=== PATIENT | male | born 1955 | race Caucasian/White ===

== ENCOUNTER 2017-11-22 11:43 | Observation (INO) | payer OTHER, SELFPAY | END 2017-11-23 13:50 | disposition home or self-care (01) | PROVIDERS: Admitting Provider Internal Medicine; Emergency Provider Emergency Medicine; Visit Provider Internal Medicine | DX: G45.9 Transient cerebral ischemic attack, unspecified (principal); R47.81 Slurred speech; F03.90 Unspecified dementia, unspecified severity, without behavioral disturbance, psychotic disturbance, mood disturbance, and anxiety; E78.5 Hyperlipidemia, unspecified | CPT/HCPCS: 70450; 70496; 70498; 70551; 71010; 71045; 80053; 80061; 82962; 84484; 85025; 85610; 85730; 92523; 93005; 93010; 96360; 96361; 97161; 97165; 97535; 99058; 99285; G0378; J1650; Q9967 ==

== ENCOUNTER 2018-04-10 13:18 | Inpatient (IN) | payer OTHER, SELFPAY ==
[2018-04-10] VITALS (9 sets, daily range): BP systolic 146–172; BP diastolic 82–97; PULSE 68–81; RESP 15–20; TEMP 36.3–37.2; O2SAT 94–97; BMI 34.0
--- NOTE | 2018-04-10 13:26 | DI.RAD.S_ITS ---
PROCEDURE: XR CHEST 1V INDICATIONS: chest pain TECHNIQUE: One view of the chest was acquired. COMPARISON: [facility], , CHEST 1 VIEW, 11/22/2017, 11:56. FINDINGS: Surgical changes and devices: None. Lungs and pleura: No pleural effusions or pneumothorax. Lungs are clear. Mediastinum: Mediastinal contours appear normal. Heart size is normal. Bones and chest wall: No suspicious bony lesions. Overlying soft tissues appear unremarkable. IMPRESSION: No acute cardiopulmonary pathology. Dictated by: Bassam Ceron M.D. on 04/10/2018 at 13:44 Approved by: Bassam Ceron M.D. on 04/10/2018 at 13:44
--- NOTE | 2018-04-10 13:31 | DI.CT.S_ITS ---
PROCEDURE: CT HEAD/BRAIN WO CON INDICATIONS: Left sided weakness. H/O brain tumor from 70s. TECHNIQUE: Noncontrast 4.5 mm thick angled axial sections acquired from the foramen magnum to the vertex, with coronal and sagittal reformats. For radiation dose reduction, the following was used: automated exposure control, adjustment of mA and/or kV according to patient size. COMPARISON: [facility], CT, HEAD WITHOUT CONTRAST, 11/22/2017, 12:12. FINDINGS: Image quality: Excellent. CSF spaces: Basal cisterns are patent. No extra-axial fluid collections. The ventricles are symmetric in size and shape. Brain: The large right posterior parietal encephalomalacia is again seen with areas of dystrophic calcification, unchanged from previous study. Benign calcifications are also noted in bilateral basal ganglia. No intracranial bleeds or masses. There is cerebral volume loss for age, with resultant ventricular and sulcal prominence. There are periventricular and deep white matter chronic small vessel ischemic changes. There is intracranial internal carotid artery atherosclerosis. Skull and face: There are post right temporoparietal craniotomy changes. No acute calvarial abnormalities. The visualized facial bones appear intact, without suspicious lesions. Sinuses: Visualized sinuses and mastoids are clear. IMPRESSION: No CT evidence of acute intracranial pathology. No significant changes from 11/22/17 study. Right posterior parietal encephalomalacia with stable post surgical changes. Dictated by: Bassam Ceron M.D. on 04/10/2018 at 13:45 Approved by: Bassam Ceron M.D. on 04/10/2018 at 13:47
--- NOTE | 2018-04-10 13:52 | ED.NEUROSD ---
HPI - Neuro Symptoms/Deficit General Chief Complaint: Neuro Symptoms/Deficit Stated Complaint: L sided weakness. Time Seen by Provider: 04/10/18 13:51 Source: patient, family and old records reviewed History of Present Illness HPI Narrative: This is a a 62-year-old male who comes to the emergency department with complaint of left-sided deficit. Patient and family both state that he woke up with these symptoms. He states that when he went to bed he was not having these issues. He does have a history of brain tumor Um that was removed. He was seen here before with somewhat similar symptoms and was blue to have a hypertensive encephalopathy. Patient has been having left-sided weakness of his arm and left lower extremity. He typically does have some issues with weakness in the hand itself but not as extensive as the weakness today. Um no fevers. He denies any vision changes, him and his family state that he has some slightly but increased difficulty with speech Um. No nausea or vomiting. No chest pain or shortness of breath. No new GI or urinary symptoms. Patient has not any new medication changes recently. Onset (ago): hour(s) Timing confirmed by: spouse and family member Location: speech, left arm and left leg History of same: Yes Severity: moderate Quality: weak Relieving factors: none Exacerbating factors: none Context: other (Woke up with symptoms) On Anticoagulants: No Associated symptoms: denies other symptoms Related Data Home Medications Medication Instructions Recorded Confirmed donepezil 10 mg PO BEDTIME #0 04/30/16 04/10/18 cholecalciferol (vitamin D3) 1,000 unit PO BEDTIME #0 11/22/17 04/10/18 [Vitamin D3] lisinopril 10 mg PO BEDTIME #0 11/22/17 04/10/18 atorvastatin 80 mg PO BEDTIME 04/10/18 04/10/18 ibuprofen 800 mg PO QID PRN 04/10/18 04/10/18 loratadine 10 mg PO BEDTIME 04/10/18 04/10/18 multivitamin 1 tab PO BEDTIME 04/10/18 04/10/18 ranitidine HCl 150 mg PO BID PRN 04/10/18 04/10/18 Allergies Allergy/AdvReac Type Severity Reaction Status Date / Time No Known Drug Allergies Allergy Verified 04/10/18 13:32 Review of Systems Review of Systems All systems reviewed & are unremarkable except as noted in HPI and below Constitutional Reports weakness ENT Ears, Nose, Mouth, and Throat: Denies dizziness Cardiovascular Denies dyspnea and Denies dyspnea on exertion Respiratory Denies cough, Denies dyspnea, Denies dyspnea on exertion and Denies wheezing Gastrointestinal Gastrointestinal: Denies abdominal pain, Denies change in bowel habits, Denies diarrhea, Denies nausea and Denies vomiting Musculoskeletal Reports as per HPI, Reports limited range of motion and Denies numbness Neurologic Reports abnormal speech, Denies confusion, Denies dizziness, Reports focal weakness (Left arm and leg), Denies numbness, Denies other visual disturbances, Denies seizure-like activity, Denies sensory deficit and Reports weakness Psychiatric Denies confusion Allergic/Immunologic Denies wheezing PFSH Medical History Hyperlipemia (Acute) Hypertension (Acute) Surgical History H/O craniotomy (Acute) Social History household members: spouse Smoking Status: Never smoker alcohol intake: never Exam Initial Vital Signs Initial Vital Signs: Vital Signs Temperature 98.9 F 04/10/18 13:26 Pulse Rate 77 04/10/18 13:26 Respiratory Rate 16 04/10/18 13:26 Blood Pressure 172/97 H 04/10/18 13:26 Pulse Oximetry 97 04/10/18 13:26 Const General: cooperative, healthy appearing, well developed and in distress (mild) Orientation: alert, awake and oriented x3 HENMT Head: normocephalic and atraumatic Ears: external ears normal and TM's normal bilaterally Nose: external nose normal and No nasal discharge Face and sinus: sinuses nontender, face symmetric, no sinus tenderness and No dry mucous membranes Mouth: oral mucosae normal and moist mucous membranes Teeth and gingiva: dentition normal Throat: tonsils normal and uvula midline Neck Neck: normal visual inspection, trachea midline, No lymphadenopathy, No midline deformity and No JVD Lymphatic: No lymphedema Chest Chest: normal inspection of the chest Resp Effort & Inspection: normal respiratory effort, able to speak in complete sentences, no respiratory distress and no use of accessory muscles Auscultation: clear to auscultation bilaterally, no rales, no rhonchi and no wheezes Cardio Rate: regular rate Rhythm: regular rhythm Heart Sounds: no click, no gallops, no murmurs and no rubs Pulses: normal peripheral pulses GI Inspection: non-distended Palpation: soft, no hepatosplenomegaly, No guarding, No pulsatile mass and No tender Auscultation: normal bowel sounds Neuro General: alert, awake, oriented x3 and CN's II-XI intact bilaterally Cranial Nerves: CN's II-XI intact bilaterally Cognition: normal cognition Speech: abnormal speech (slight aphasia) Motor: No movement abnormality noted and strength abnormal (left upper and lower extremity are weak, patient can lift but cannot maintain against gravity.) Sensory Exam: sensory deficits noted Coordination: other ( Finger-nose test and kbek-[id number]-bmko test is normal on the right. Patient is unable to complete on the left.) Extrem General: normal to inspection Scores NIH Stroke Scale Level of Conciousness: Alert, keenly responsive Ask month/age: Answers both questions correctly. Best gaze horizontal: Normal Visual talley: Complete hemianopia Facial palsy: Minor paralysis, flattened nasolabial fold, asymmetry on smiling Left arm drift: Some effort against gravity, cannot maintain, drifts down to bed Right arm drift: No drift for full 10 sec Left leg drift: Some effort against gravity, cannot maintain, drifts down to bed Right leg drift: No drift for full 10 sec Limb ataxia: Present in two limbs Sensory on face/arms/legs: Normal, no sensory loss Best language: Mild to moderate, slurs some words Dysarthria: Normal Extinction or inattention: No abnormality Course Decision to Admit time: 15:14 Orders Ordered: ED Orders 04/10/18 13:26 XR chest 1V Stat EKG-12 Lead Stat 04/10/18 13:31 CT head/brain wo con Stat 04/10/18 14:12 Complete Blood Count AUTO DIFF Stat Comprehensive Metabolic Panel Stat Lipase Stat Partial Thromboplastin Time Stat Prothrombin Time INR Stat Troponin & CK Cardiac Panel Stat 04/10/18 15:03 CT angio head and neck Stat 04/10/18 15:21 Urine Microscopic Stat 04/10/18 16:38 Education, smoking cessation ONGOING 04/10/18 16:40 Consult to Occupational Therapy Evaluate & Treat 04/10/18 17:24 Consult to Business Investor Routine Acetaminophen (Tylenol) 650 mg PO Q6HR PRN PRN Reason: As Needed for Fever/Mild Pain Atorvastatin Calcium (Lipitor) 80 mg PO BEDTIME MIGUEL Bisacodyl (Dulcolax) 10 mg [place] DAILY PRN PRN Reason: Constipation Docusate Sodium (Colace) 100 mg PO BID MIGUEL Donepezil HCl (Aricept) 10 mg PO BEDTIME MIGUEL Enoxaparin Sodium (Lovenox) 40 mg SUBCUT DAILY MIGUEL Ibuprofen (Advil) 800 mg PO QID PRN PRN Reason: Pain (Scale Score 1-3) Loratadine (Claritin) 10 mg PO BEDTIME MIGUEL Magnesium Hydroxide (Milk Of Magnesia) 30 ml PO DAILY PRN PRN Reason: Constipation Multivitamins (Tab-A-[place]) 1 tab PO BEDTIME MIGUEL Ondansetron HCl (Zofran) 4 mg IV Q8HR PRN PRN Reason: Nausea And Vomiting Ondansetron HCl (Zofran Odt) 4 mg PO Q8HR PRN PRN Reason: Nausea And Vomiting Ranitidine HCl (Zantac) 150 mg PO BID PRN PRN Reason: gerd Sennosides (Senna) 17.2 mg PO BEDTIME [facility] Sodium Biphosphate/Sodium Phosphate (Fleet Enema) 1 each [place] PRN PRN PRN Reason: Constipation Discontinued Medications Aspirin (Aspirin) 325 mg PO NOW ONE Stop: 04/10/18 15:04 Last Admin: 04/10/18 15:26 Dose: 325 mg Consultations Consultation #1: Dr. Simons accepts pending no significant angiogram changes. Plan for admission. Time: 15:40 Vital Signs - 8 hr 04/10/18 13:26 04/10/18 14:00 04/10/18 14:30 Temperature 98.9 F Pulse Rate 77 75 76 Respiratory Rate 16 16 19 Blood Pressure 172/97 H Blood Pressure [Left Arm] 162/96 H 162/85 H Pulse Oximetry 97 97 96 04/10/18 15:30 04/10/18 16:00 04/10/18 16:50 Temperature 97.4 F L Pulse Rate 75 81 68 Respiratory Rate 15 15 18 Blood Pressure 151/96 H Blood Pressure [Left Arm] 164/94 H 160/93 H Pulse Oximetry 95 94 97 MDM - Neuro Symptoms/Deficit Differential Diagnosis Likely cerebrovascular accident, transient cerebral ischemia and other Medical Records Attestation: I reviewed the patient's medical records. Lab Data Result diagrams: 04/10/18 14:12 04/10/18 14:12 Lab Results 04/10/18 04/10/18 04/10/18 Range/Units 14:12 14:12 14:12 WBC 6.3 (4.5-11.0) X10^3/uL RBC 4.68 (4.5-5.9) X10^6/uL Hgb 14.5 (13.5-17.5) g/dL Hct 42.3 (41-53) % MCV 90.4 (80-100) fL MCH 31.0 (26-34) PG MCHC 34.3 (30-36) % RDW 14.1 (11.6-14.8) % Plt Count 275 (150-400) X10^3/uL Neut % (Auto) 59.5 (50-75) % Lymph % (Auto) 31.9 (25-40) % Owen % (Auto) 7.0 (3-14) % Eos % (Auto) 1.1 L (2-4) % Baso % (Auto) 0.5 (0-2) % Neut # (Auto) 3700 (7612-2213) /uL PT 10.8 (10.1-12.7) SECONDS INR 1.0 (0.9-1.3) APTT 36 (26.4-36.2) SECONDS Sodium 147 H (137-145) mmol/L Potassium 4.4 (3.4-5.1) mmol/L Chloride 106 (98-107) mmol/L Carbon Dioxide 30 (22-32) mmol/L BUN 16 (9-20) mg/dL Creatinine 0.90 (0.66-1.25) mg/dL Estimated GFR > 60.0 (>60) mL/min BUN/Creatinine Ratio 17.8 (6-22) Glucose 108 (80-110) mg/dL Calcium 9.6 (8.4-10.2) mg/dL Total Bilirubin 0.6 (0.2-1.3) mg/dL AST 33 (17-59) IU/L ALT 35 (21-72) IU/L Alkaline Phosphatase 77 (38-126) U/L Total Creatine Kinase 117 (55-170) U/L CK-MB (CK-2) 0.78 (<2.37) ng/mL CK-MB (CK-2) Rel Index 0.7 L (1.5-5.0) % Troponin I < 0.012 (0.01-0.034) ng/mL Total Protein 7.6 (6.3-8.2) g/dL Albumin 4.6 (3.5-5.0) g/dL Globulin 3.0 (1.7-4.1) g/dL Albumin/Globulin Ratio 1.5 (1.0-2.8) Lipase 159 (23-300) U/L Urine Dip Bedside Urine Glucose Negative Bedside Urine Bilirubin - Negative Bedside Urine Ketone - Negative Urine Specific [place] 1.015 Bedside Urine Occult Blood + Bedside Urine pH 7.0 Bedside Urine Protein +/- 15 Bedside Urine Urobilinogen - Negative Bedside Urine Nitrite - Negative Bedside Urine Leukocytes - Negative Esterase Imaging Data CT scan - head: Radiologist's impression: No acute process. Head/Neck Angio: Radiologist's impression: [address] [address] [address] Scan Report Signed Patient: Phill DemarcoMR#: [id number] : 6Acct:[id number] Age/Sex: 62 / MDate of Service: 04/10/18 Loc: ED Accession Number: [id number] Procedure: CT angio head and neck Ordering Provider: Reanna Mcclure D.O. PROCEDURE: CT ANGIO HEAD AND NECK INDICATIONS: left sided weakness, mild aphasia. woke up with symptoms TECHNIQUE: Pre-contrast 4.5 mm thick sections acquired from the foramen magnum to the vertex. After the administration of intravenous contrast, 1 mm thick sections acquired from the aortic arch through the [place]. Post-contrast 4.5 mm thick sections then re-acquired from the foramen magnum to the vertex. 3-dimensional jbpbnkx-dnaeutwuo-rchvfqhkkn (MIP) and/or volume rendering reformats were acquired of the central intracranial vasculature and neck separately. COMPARISON: [facility], CT, HEAD AND NECK ANGIO, 11/22/2017, 13:39. FINDINGS: Image quality: Excellent. BRAIN: CSF spaces: Ventricles are normal in size and shape. Basal cisterns are patent. No extra-axial fluid collections. Encephalomalacia in right posterior temporal parietal lobe is again seen at the previously known craniotomy site with multiple areas of dystrophic calcifications and ex vacuo dilatation of right posterior horn unchanged from previous study. Brain: No midline shift. No intracranial bleeds or masses. Joseph-white matter interface appears intact. Mild periventricular white matter chronic ischemic microangiopathic changes are again seen. No area of abnormal contrast enhancement is noted. Skull and face: Calvarium and facial bones appear intact, without suspicious lesions. Orbits appear normal. Sinuses: Sinuses and mastoids are clear. HEAD CT ANGIOGRAPHY: Anterior circulation: Intracranial internal carotid arteries are normal in size and flow. The flow within the paired anterior cerebral arteries is normal and symmetric. The flow within the middle cerebral arteries is normal and symmetric. The anterior communicating artery is seen. No aneurysms are seen. Posterior circulation: Visualized portions of the vertebral arteries demonstrate normal caliber, and join to form a normal appearing basilar artery. Flow within the posterior cerebral arteries is normal and symmetric. No aneurysms are seen. NECK CT ANGIOGRAPHY: Carotid system: The great vessels demonstrate a conventional anatomy as they arise from the aortic arch. The origins of the common carotid arteries appear patent. The common carotid arteries demonstrate normal caliber and courses. The bifurcation regions are both widely patent. The internal carotid arteries demonstrate normal calibers and courses. Posterior circulation: The origins of the vertebral arteries both appear widely patent. The more superior extracranial portions of both vertebral arteries also demonstrate normal courses and calibers. They join to form a normal appearing basilar artery. Soft tissues: Visualized neck soft tissues demonstrate no suspicious abnormalities. Bones: No suspicious bony lesions. Visualized cervical spine appears normally aligned. IMPRESSION: 1. No hemodynamically significant stenosis or aneurysm is seen in the visualized intracranial circulation. 2. No hemodynamically significant stenosis is seen in bilateral neck arteries. 3. Stable post craniotomy changes in right posterior temporal parietal region, unchanged from previous study. No area of abnormal contrast enhancement is seen. Any quantitative measurements of stenosis were performed using NASCET criteria. Dictated by: Bassam Ceron M.D. on 04/10/2018 at 15:37 Approved by: Bassam Ceron M.D. on 04/10/2018 at 15:41 ECG Data Attestation: I personally reviewed and interpreted this ECG as follows: Interpretation: Sinus rhythm with a rate of 76, P are 152, QRS of 113 and QTC of 439. No ST elevation or depression. MDM Narrative Medical decision making narrative: patient symptoms were Um noted upon awakening so he is not a tPA candidate he has also had a history of prior craniotomy for brain tumor Um so this would also likely him from criteria for tPA. Patient is not taking blood thinners regularly. He has left-sided weakness with an NIH score of 9. He has not had any major improvement today with his symptoms. Head CT does not show any acute bleed or change, head angio does not show any stenosis. Chest x-ray is clear and lab work does not show any major changes. Patient is mildly hypertensive but not at a level requiring intervention. Plan was discussed with Dr. Simons who accepts for admission and patient and family are comfortable with this plan. His a somewhat complicated medical history with prior excision of a brain tumor and radiation, he had what sounded like a TIA in November and was called hypertensive encephalopathy. He also has a remote history of seizures after his surgery although not have been witnessed recently. He has some mild left hand weakness in the past that is typically present but his weakness today is quite about more extensive. Discharge Plan Departure Patient Disposition: Admitted As Inpatient Clinical Impression: CVA (cerebral vascular accident) Discharge Date/Time: 04/10/18 16:22 Interventions: ED Discharge Assessment Last Done: 04/10/18 16:21 Admit Date/Time: 04/10/18 15:57 Admit Provider: Manish Simons
--- NOTE | 2018-04-10 14:00 | ED_ITS ---
HPI - Neuro Symptoms/Deficit General Chief Complaint: Neuro Symptoms/Deficit Stated Complaint: L sided weakness. Time Seen by Provider: 04/10/18 13:51 Source: patient, family and old records reviewed History of Present Illness HPI Narrative: This is a a 62-year-old male who comes to the emergency department with complaint of left-sided deficit. Patient and family both state that he woke up with these symptoms. He states that when he went to bed he was not having these issues. He does have a history of brain tumor Um that was removed. He was seen here before with somewhat similar symptoms and was blue to have a hypertensive encephalopathy. Patient has been having left-sided weakness of his arm and left lower extremity. He typically does have some issues with weakness in the hand itself but not as extensive as the weakness today. Um no fevers. He denies any vision changes, him and his family state that he has some slightly but increased difficulty with speech Um. No nausea or vomiting. No chest pain or shortness of breath. No new GI or urinary symptoms. Patient has not any new medication changes recently. Onset (ago): hour(s) Timing confirmed by: spouse and family member Location: speech, left arm and left leg History of same: Yes Severity: moderate Quality: weak Relieving factors: none Exacerbating factors: none Context: other (Woke up with symptoms) On Anticoagulants: No Associated symptoms: denies other symptoms Related Data Home Medications Medication Instructions Recorded Confirmed donepezil 10 mg PO BEDTIME #0 04/30/16 04/10/18 cholecalciferol (vitamin D3) 1,000 unit PO BEDTIME #0 11/22/17 04/10/18 [Vitamin D3] lisinopril 10 mg PO BEDTIME #0 11/22/17 04/10/18 atorvastatin 80 mg PO BEDTIME 04/10/18 04/10/18 ibuprofen 800 mg PO QID PRN 04/10/18 04/10/18 loratadine 10 mg PO BEDTIME 04/10/18 04/10/18 multivitamin 1 tab PO BEDTIME 04/10/18 04/10/18 ranitidine HCl 150 mg PO BID PRN 04/10/18 04/10/18 Allergies Allergy/AdvReac Type Severity Reaction Status Date / Time No Known Drug Allergies Allergy Verified 04/10/18 13:32 Review of Systems Review of Systems All systems reviewed & are unremarkable except as noted in HPI and below Constitutional Reports weakness ENT Ears, Nose, Mouth, and Throat: Denies dizziness Cardiovascular Denies dyspnea and Denies dyspnea on exertion Respiratory Denies cough, Denies dyspnea, Denies dyspnea on exertion and Denies wheezing Gastrointestinal Gastrointestinal: Denies abdominal pain, Denies change in bowel habits, Denies diarrhea, Denies nausea and Denies vomiting Musculoskeletal Reports as per HPI, Reports limited range of motion and Denies numbness Neurologic Reports abnormal speech, Denies confusion, Denies dizziness, Reports focal weakness (Left arm and leg), Denies numbness, Denies other visual disturbances, Denies seizure-like activity, Denies sensory deficit and Reports weakness Psychiatric Denies confusion Allergic/Immunologic Denies wheezing PFSH Medical History Hyperlipemia (Acute) Hypertension (Acute) Surgical History H/O craniotomy (Acute) Social History household members: spouse Smoking Status: Never smoker alcohol intake: never Exam Initial Vital Signs Initial Vital Signs: Vital Signs Temperature 98.9 F 04/10/18 13:26 Pulse Rate 77 04/10/18 13:26 Respiratory Rate 16 04/10/18 13:26 Blood Pressure 172/97 H 04/10/18 13:26 Pulse Oximetry 97 04/10/18 13:26 Const General: cooperative, healthy appearing, well developed and in distress (mild) Orientation: alert, awake and oriented x3 HENMT Head: normocephalic and atraumatic Ears: external ears normal and TM's normal bilaterally Nose: external nose normal and No nasal discharge Face and sinus: sinuses nontender, face symmetric, no sinus tenderness and No dry mucous membranes Mouth: oral mucosae normal and moist mucous membranes Teeth and gingiva: dentition normal Throat: tonsils normal and uvula midline Neck Neck: normal visual inspection, trachea midline, No lymphadenopathy, No midline deformity and No JVD Lymphatic: No lymphedema Chest Chest: normal inspection of the chest Resp Effort & Inspection: normal respiratory effort, able to speak in complete sentences, no respiratory distress and no use of accessory muscles Auscultation: clear to auscultation bilaterally, no rales, no rhonchi and no wheezes Cardio Rate: regular rate Rhythm: regular rhythm Heart Sounds: no click, no gallops, no murmurs and no rubs Pulses: normal peripheral pulses GI Inspection: non-distended Palpation: soft, no hepatosplenomegaly, No guarding, No pulsatile mass and No tender Auscultation: normal bowel sounds Neuro General: alert, awake, oriented x3 and CN's II-XI intact bilaterally Cranial Nerves: CN's II-XI intact bilaterally Cognition: normal cognition Speech: abnormal speech (slight aphasia) Motor: No movement abnormality noted and strength abnormal (left upper and lower extremity are weak, patient can lift but cannot maintain against gravity.) Sensory Exam: sensory deficits noted Coordination: other ( Finger-nose test and [id number] test is normal on the right. Patient is unable to complete on the left.) Extrem General: normal to inspection Scores NIH Stroke Scale Level of Conciousness: Alert, keenly responsive Ask month/age: Answers both questions correctly. Best gaze horizontal: Normal Visual talley: Complete hemianopia Facial palsy: Minor paralysis, flattened nasolabial fold, asymmetry on smiling Left arm drift: Some effort against gravity, cannot maintain, drifts down to bed Right arm drift: No drift for full 10 sec Left leg drift: Some effort against gravity, cannot maintain, drifts down to bed Right leg drift: No drift for full 10 sec Limb ataxia: Present in two limbs Sensory on face/arms/legs: Normal, no sensory loss Best language: Mild to moderate, slurs some words Dysarthria: Normal Extinction or inattention: No abnormality Course Decision to Admit time: 15:14 Orders Ordered: ED Orders 04/10/18 13:26 XR chest 1V Stat EKG-12 Lead Stat 04/10/18 13:31 CT head/brain wo con Stat 04/10/18 14:12 Complete Blood Count AUTO DIFF Stat Comprehensive Metabolic Panel Stat Lipase Stat Partial Thromboplastin Time Stat Prothrombin Time INR Stat Troponin & CK Cardiac Panel Stat 04/10/18 15:03 CT angio head and neck Stat 04/10/18 15:21 Urine Microscopic Stat 04/10/18 16:38 Education, smoking cessation ONGOING 04/10/18 16:40 Consult to Occupational Therapy Evaluate & Treat 04/10/18 17:24 Consult to Media Associate Routine Acetaminophen (Tylenol) 650 mg PO Q6HR PRN PRN Reason: As Needed for Fever/Mild Pain Atorvastatin Calcium (Lipitor) 80 mg PO BEDTIME MIGUEL Bisacodyl (Dulcolax) 10 mg DC DAILY PRN PRN Reason: Constipation Docusate Sodium (Colace) 100 mg PO BID MIGUEL Donepezil HCl (Aricept) 10 mg PO BEDTIME MIGUEL Enoxaparin Sodium (Lovenox) 40 mg SUBCUT DAILY MIGUEL Ibuprofen (Advil) 800 mg PO QID PRN PRN Reason: Pain (Scale Score 1-3) Loratadine (Claritin) 10 mg PO BEDTIME MIGUEL Magnesium Hydroxide (Milk Of Magnesia) 30 ml PO DAILY PRN PRN Reason: Constipation Multivitamins (Tab-A-[place]) 1 tab PO BEDTIME MIGUEL Ondansetron HCl (Zofran) 4 mg IV Q8HR PRN PRN Reason: Nausea And Vomiting Ondansetron HCl (Zofran Odt) 4 mg PO Q8HR PRN PRN Reason: Nausea And Vomiting Ranitidine HCl (Zantac) 150 mg PO BID PRN PRN Reason: gerd Sennosides (Senna) 17.2 mg PO BEDTIME [facility] Sodium Biphosphate/Sodium Phosphate (Fleet Enema) 1 each DC PRN PRN PRN Reason: Constipation Discontinued Medications Aspirin (Aspirin) 325 mg PO NOW ONE Stop: 04/10/18 15:04 Last Admin: 04/10/18 15:26 Dose: 325 mg Consultations Consultation #1: Dr. Simons accepts pending no significant angiogram changes. Plan for admission. Time: 15:40 Vital Signs - 8 hr 04/10/18 13:26 04/10/18 14:00 04/10/18 14:30 Temperature 98.9 F Pulse Rate 77 75 76 Respiratory Rate 16 16 19 Blood Pressure 172/97 H Blood Pressure [Left Arm] 162/96 H 162/85 H Pulse Oximetry 97 97 96 04/10/18 15:30 04/10/18 16:00 04/10/18 16:50 Temperature 97.4 F L Pulse Rate 75 81 68 Respiratory Rate 15 15 18 Blood Pressure 151/96 H Blood Pressure [Left Arm] 164/94 H 160/93 H Pulse Oximetry 95 94 97 MDM - Neuro Symptoms/Deficit Differential Diagnosis Likely cerebrovascular accident, transient cerebral ischemia and other Medical Records Attestation: I reviewed the patient's medical records. Lab Data Result diagrams: 04/10/18 14:12 04/10/18 14:12 Lab Results 04/10/18 04/10/18 04/10/18 Range/Units 14:12 14:12 14:12 WBC 6.3 (4.5-11.0) X10^3/uL RBC 4.68 (4.5-5.9) X10^6/uL Hgb 14.5 (13.5-17.5) g/dL Hct 42.3 (41-53) % MCV 90.4 (80-100) fL MCH 31.0 (26-34) PG MCHC 34.3 (30-36) % RDW 14.1 (11.6-14.8) % Plt Count 275 (150-400) X10^3/uL Neut % (Auto) 59.5 (50-75) % Lymph % (Auto) 31.9 (25-40) % [place] % (Auto) 7.0 (3-14) % Eos % (Auto) 1.1 L (2-4) % Baso % (Auto) 0.5 (0-2) % Neut # (Auto) 3700 (3991-6496) /uL PT 10.8 (10.1-12.7) SECONDS INR 1.0 (0.9-1.3) APTT 36 (26.4-36.2) SECONDS Sodium 147 H (137-145) mmol/L Potassium 4.4 (3.4-5.1) mmol/L Chloride 106 (98-107) mmol/L Carbon Dioxide 30 (22-32) mmol/L BUN 16 (9-20) mg/dL Creatinine 0.90 (0.66-1.25) mg/dL Estimated GFR > 60.0 (>60) mL/min BUN/Creatinine Ratio 17.8 (6-22) Glucose 108 (80-110) mg/dL Calcium 9.6 (8.4-10.2) mg/dL Total Bilirubin 0.6 (0.2-1.3) mg/dL AST 33 (17-59) IU/L ALT 35 (21-72) IU/L Alkaline Phosphatase 77 (38-126) U/L Total Creatine Kinase 117 (55-170) U/L CK-MB (CK-2) 0.78 (<2.37) ng/mL CK-MB (CK-2) Rel Index 0.7 L (1.5-5.0) % Troponin I < 0.012 (0.01-0.034) ng/mL Total Protein 7.6 (6.3-8.2) g/dL Albumin 4.6 (3.5-5.0) g/dL Globulin 3.0 (1.7-4.1) g/dL Albumin/Globulin Ratio 1.5 (1.0-2.8) Lipase 159 (23-300) U/L Urine Dip Bedside Urine Glucose Negative Bedside Urine Bilirubin - Negative Bedside Urine Ketone - Negative Urine Specific Whitt 1.015 Bedside Urine Occult Blood + Bedside Urine pH 7.0 Bedside Urine Protein +/- 15 Bedside Urine Urobilinogen - Negative Bedside Urine Nitrite - Negative Bedside Urine Leukocytes - Negative Esterase Imaging Data CT scan - head: Radiologist's impression: No acute process. Head/Neck Angio: Radiologist's impression: [address] [address] [address] Scan Report Signed Patient: Phill DemarcoMR#: [id number] : 6Acct:[id number] Age/Sex: 62 / MDate of Service: 04/10/18 Loc: ED Accession Number: [id number] Procedure: CT angio head and neck Ordering Provider: Reanna Mcclure D.O. PROCEDURE: CT ANGIO HEAD AND NECK INDICATIONS: left sided weakness, mild aphasia. woke up with symptoms TECHNIQUE: Pre-contrast 4.5 mm thick sections acquired from the foramen magnum to the vertex. After the administration of intravenous contrast, 1 mm thick sections acquired from the aortic arch through the [place] of [place]. Post-contrast 4.5 mm thick sections then re- acquired from the foramen magnum to the vertex. 3-dimensional maximum-intensity- projection (MIP) and/or volume rendering reformats were acquired of the central intracranial vasculature and neck separately. COMPARISON: [facility], CT, HEAD AND NECK ANGIO, 11/22/2017, 13:39. FINDINGS: Image quality: Excellent. BRAIN: CSF spaces: Ventricles are normal in size and shape. Basal cisterns are patent. No extra-axial fluid collections. Encephalomalacia in right posterior temporal parietal lobe is again seen at the previously known craniotomy site with multiple areas of dystrophic calcifications and ex vacuo dilatation of right posterior horn unchanged from previous study. Brain: No midline shift. No intracranial bleeds or masses. Joseph-white matter interface appears intact. Mild periventricular white matter chronic ischemic microangiopathic changes are again seen. No area of abnormal contrast enhancement is noted. Skull and face: Calvarium and facial bones appear intact, without suspicious lesions. Orbits appear normal. Sinuses: Sinuses and mastoids are clear. HEAD CT ANGIOGRAPHY: Anterior circulation: Intracranial internal carotid arteries are normal in size and flow. The flow within the paired anterior cerebral arteries is normal and symmetric. The flow within the middle cerebral arteries is normal and symmetric. The anterior communicating artery is seen. No aneurysms are seen. Posterior circulation: Visualized portions of the vertebral arteries demonstrate normal caliber, and join to form a normal appearing basilar artery. Flow within the posterior cerebral arteries is normal and symmetric. No aneurysms are seen. NECK CT ANGIOGRAPHY: Carotid system: The great vessels demonstrate a conventional anatomy as they arise from the aortic arch. The origins of the common carotid arteries appear patent. The common carotid arteries demonstrate normal caliber and courses. The bifurcation regions are both widely patent. The internal carotid arteries demonstrate normal calibers and courses. Posterior circulation: The origins of the vertebral arteries both appear widely patent. The more superior extracranial portions of both vertebral arteries also demonstrate normal courses and calibers. They join to form a normal appearing basilar artery. Soft tissues: Visualized neck soft tissues demonstrate no suspicious abnormalities. Bones: No suspicious bony lesions. Visualized cervical spine appears normally aligned. IMPRESSION: 1. No hemodynamically significant stenosis or aneurysm is seen in the visualized intracranial circulation. 2. No hemodynamically significant stenosis is seen in bilateral neck arteries. 3. Stable post craniotomy changes in right posterior temporal parietal region, unchanged from previous study. No area of abnormal contrast enhancement is seen. Any quantitative measurements of stenosis were performed using NASCET criteria. Dictated by: Bassam Ceron M.D. on 04/10/2018 at 15:37 Approved by: Bassam Ceron M.D. on 04/10/2018 at 15:41 ECG Data Attestation: I personally reviewed and interpreted this ECG as follows: Interpretation: Sinus rhythm with a rate of 76, P are 152, QRS of 113 and QTC of 439. No ST elevation or depression. MDM Narrative Medical decision making narrative: patient symptoms were Um noted upon awakening so he is not a tPA candidate he has also had a history of prior craniotomy for brain tumor Um so this would also likely him from criteria for tPA. Patient is not taking blood thinners regularly. He has left-sided weakness with an NIH score of 9. He has not had any major improvement today with his symptoms. Head CT does not show any acute bleed or change, head angio does not show any stenosis. Chest x-ray is clear and lab work does not show any major changes. Patient is mildly hypertensive but not at a level requiring intervention. Plan was discussed with Dr. Simons who accepts for admission and patient and family are comfortable with this plan. His a somewhat complicated medical history with prior excision of a brain tumor and radiation, he had what sounded like a TIA in November and was called hypertensive encephalopathy. He also has a remote history of seizures after his surgery although not have been witnessed recently. He has some mild left hand weakness in the past that is typically present but his weakness today is quite about more extensive. Discharge Plan Departure Patient Disposition: Admitted As Inpatient Clinical Impression: CVA (cerebral vascular accident) Discharge Date/Time: 04/10/18 16:22 Interventions: ED Discharge Assessment Last Done: 04/10/18 16:21 Admit Date/Time: 04/10/18 15:57 Admit Provider: Manish Simons
[2018-04-10 14:20] LABS: Add Manual Diff / Slide Review NO; Basophils Percent Auto 0.5 % (0-2); Eosinophils Percent Auto 1.1 % (2-4); Hematocrit 42.3 % (41-53); Hemoglobin 14.5 g/dL (13.5-17.5); Lymphocytes Percent Auto 31.9 % (25-40); Mean Corpuscular HGB Conc 34.3 % (30-36); Mean Corpuscular Volume 90.4 fL (80-100); Neutrophils Absolute Auto 3700 /uL (3000-5900); Neutrophils Percent Auto 59.5 % (50-75); Platelet Count 275 X10^3/uL (150-400); Red Blood Cell Count 4.68 X10^6/uL (4.5-5.9); Red Cell Distribution Width 14.1 % (11.6-14.8); White Blood Cell Count 6.3 X10^3/uL (4.5-11.0)
[2018-04-10 14:28] LABS: Prothrombin Time 10.8 SECONDS (10.1-12.7)
[2018-04-10 14:30] LABS: PTT Partial Thromboplastin Tim 36 SECONDS (26.4-36.2)
[2018-04-10 14:32] LABS: Alanine Aminotransferase 35 IU/L (21-72); Albumin 4.6 g/dL (3.5-5.0); Albumin Globulin Ratio 1.5 (1.0-2.8); Alkaline Phosphatase 77 U/L (38-126); Aspartate Aminotransferase 33 IU/L (17-59); BUN Creatinine Ratio 17.8 (6-22); Bilirubin Total 0.6 mg/dL (0.2-1.3); Blood Urea Nitrogen 16 mg/dL (9-20); Calcium 9.6 mg/dL (8.4-10.2); Carbon Dioxide 30 mmol/L (22-32); Chloride 106 mmol/L (98-107); Creatine Kinase 117 U/L (55-170); Estimated Glomerular Filt Rate > 60.0 mL/min (>60); Glucose 108 mg/dL (80-110); HEMOLYSIS < 15 (0-50); Lipase 159 U/L (23-300); Potassium 4.4 mmol/L (3.4-5.1); Sodium 147 mmol/L (137-145); Total Protein 7.6 g/dL (6.3-8.2)
[2018-04-10 14:47] LABS: CKMB % Relative Index 0.7 % (1.5-5.0); Creatine Kinase MB 0.78 ng/mL (<2.37)
[2018-04-10 14:54] LABS: Troponin I < 0.012 ng/mL (0.01-0.034)
--- NOTE | 2018-04-10 15:03 | DI.CT.S_ITS ---
PROCEDURE: CT ANGIO HEAD AND NECK INDICATIONS: left sided weakness, mild aphasia. woke up with symptoms TECHNIQUE: Pre-contrast 4.5 mm thick sections acquired from the foramen magnum to the vertex. After the administration of intravenous contrast, 1 mm thick sections acquired from the aortic arch through the [place] of [place]. Post-contrast 4.5 mm thick sections then re-acquired from the foramen magnum to the vertex. 3-dimensional [id number] (MIP) and/or volume rendering reformats were acquired of the central intracranial vasculature and neck separately. COMPARISON: [facility], CT, HEAD AND NECK ANGIO, 11/22/2017, 13:39. FINDINGS: Image quality: Excellent. BRAIN: CSF spaces: Ventricles are normal in size and shape. Basal cisterns are patent. No extra-axial fluid collections. Encephalomalacia in right posterior temporal parietal lobe is again seen at the previously known craniotomy site with multiple areas of dystrophic calcifications and ex vacuo dilatation of right posterior horn unchanged from previous study. Brain: No midline shift. No intracranial bleeds or masses. [place]-white matter interface appears intact. Mild periventricular white matter chronic ischemic microangiopathic changes are again seen. No area of abnormal contrast enhancement is noted. Skull and face: Calvarium and facial bones appear intact, without suspicious lesions. Orbits appear normal. Sinuses: Sinuses and mastoids are clear. HEAD CT ANGIOGRAPHY: Anterior circulation: Intracranial internal carotid arteries are normal in size and flow. The flow within the paired anterior cerebral arteries is normal and symmetric. The flow within the middle cerebral arteries is normal and symmetric. The anterior communicating artery is seen. No aneurysms are seen. Posterior circulation: Visualized portions of the vertebral arteries demonstrate normal caliber, and join to form a normal appearing basilar artery. Flow within the posterior cerebral arteries is normal and symmetric. No aneurysms are seen. NECK CT ANGIOGRAPHY: Carotid system: The great vessels demonstrate a conventional anatomy as they arise from the aortic arch. The origins of the common carotid arteries appear patent. The common carotid arteries demonstrate normal caliber and courses. The bifurcation regions are both widely patent. The internal carotid arteries demonstrate normal calibers and courses. Posterior circulation: The origins of the vertebral arteries both appear widely patent. The more superior extracranial portions of both vertebral arteries also demonstrate normal courses and calibers. They join to form a normal appearing basilar artery. Soft tissues: Visualized neck soft tissues demonstrate no suspicious abnormalities. Bones: No suspicious bony lesions. Visualized cervical spine appears normally aligned. IMPRESSION: 1. No hemodynamically significant stenosis or aneurysm is seen in the visualized intracranial circulation. 2. No hemodynamically significant stenosis is seen in bilateral neck arteries. 3. Stable post craniotomy changes in right posterior temporal parietal region, unchanged from previous study. No area of abnormal contrast enhancement is seen. Any quantitative measurements of stenosis were performed using NASCET criteria. Dictated by: Bassam Ceron M.D. on 04/10/2018 at 15:37 Approved by: Bassam Ceron M.D. on 04/10/2018 at 15:41
[2018-04-10] MEDS: ASPIRIN 325 MG TABLET PO (15:26)
--- NOTE | 2018-04-10 18:04 | PM.HP.1 ---
History of Present Illness Date Patient Seen: 04/10/18 Time Patient Seen: 16:04 Chief complaint: L sided weakness. Narrative: Patient is a 62 years of age male who was awakened from sleep this morning with a new left-sided hemiparesis and slurring of speech. Patient came to the emergency room with family members. Patient denies recent fevers and chills cough nor nausea and vomiting. Patient with prior history of residual left hand clumsiness and numbness following a craniectomy in 1976. 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 There is a remote history of seizures in the past as well. No recent seizures. 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 Residual left hand clumsiness and numbness since 1976 Family & Social History Social History: household members spouse Prior Living Arrangements Apartment/Condo Safety & Behavioral: Feels Safe in Current Yes Environment Been Physically Hurt or No Threatened By a Person Suicidal Ideation Description None Suicide Plan Description No Plan Tobacco & Substance use: Smoking Status Never smoker alcohol intake never Substance Use Type does not use Comment: SOCIAL HISTORY Patient is for the past 38 years nonsmoker nonalcohol abuser SURGICAL HISTORY Craniectomy 1976 FAMILY HISTORY Father with history of brain aneurysm Meds Home Medications Medication Instructions Recorded Confirmed Type donepezil 10 mg PO BEDTIME #0 04/30/16 04/10/18 History cholecalciferol (vitamin D3) 1,000 unit PO BEDTIME #0 11/22/17 04/10/18 History [Vitamin D3] lisinopril 10 mg PO BEDTIME #0 11/22/17 04/10/18 History atorvastatin 80 mg PO BEDTIME 04/10/18 04/10/18 History ibuprofen 800 mg PO QID PRN 04/10/18 04/10/18 History loratadine 10 mg PO BEDTIME 04/10/18 04/10/18 History multivitamin 1 tab PO BEDTIME 04/10/18 04/10/18 History ranitidine HCl 150 mg PO BID PRN 04/10/18 04/10/18 History Allergies Allergy/AdvReac Type Severity Reaction Status Date / Time No Known Drug Allergies Allergy Verified 04/10/18 13:32 Review of Systems Review of Systems A 10 point system reviewed with patient and was negative except for the symptoms as described in HPI. Patient with left sided hemiparesis and slurred speech. Exam Vital Signs (past 8 hours): - 04/10/18 13:26 04/10/18 14:00 04/10/18 14:30 Temperature 98.9 F Pulse Rate 77 75 76 Respiratory Rate 16 16 19 Blood Pressure 172/97 H Blood Pressure [Left Arm] 162/96 H 162/85 H Pulse Oximetry 97 97 96 04/10/18 15:30 04/10/18 16:00 04/10/18 16:50 Temperature 97.4 F L Pulse Rate 75 81 68 Respiratory Rate 15 15 18 Blood Pressure 151/96 H Blood Pressure [Left Arm] 164/94 H 160/93 H Pulse Oximetry 95 94 97 Oxygen Delivery Method Room Air Narrative Exam Narrative: General appearance patient is awake and alert no apparent distress at rest Psychiatric patient is oriented to self mood is very pleasant and cooperative affect is appropriate Skin no rashes or lesions nonjaundiced turgor normal Eyes pupils appear round and reactive and equal Ears nose and throat hearing grossly intact no septum to midline with no bleeding noted no oropharyngeal lesions Respiratory fairly clear to auscultation no wheezes no crackles Cardiovascular regular rate rhythm no murmurs are noted +3 pulses Gastrointestinal soft nontender positive bowel sounds no organomegaly noted Neurologic left-sided hemiparesis and proprioception loss on exam. Patient with a slurring of speech evident and notes this is new symptom. Lymphatics no lymphadenopathy to neck or axilla Objective Labs Result Diagrams: 04/10/18 14:12 04/10/18 14:12 Labs: Laboratory Results - last 24 hr 04/10/18 04/10/18 04/10/18 14:12 14:12 14:12 WBC 6.3 RBC 4.68 Hgb 14.5 Hct 42.3 MCV 90.4 MCH 31.0 MCHC 34.3 RDW 14.1 Plt Count 275 Neut % (Auto) 59.5 Lymph % (Auto) 31.9 [place] % (Auto) 7.0 Eos % (Auto) 1.1 L Baso % (Auto) 0.5 Neut # (Auto) 3700 PT 10.8 INR 1.0 APTT 36 Sodium 147 H Potassium 4.4 Chloride 106 Carbon Dioxide 30 BUN 16 Creatinine 0.90 Estimated GFR > 60.0 BUN/Creatinine Ratio 17.8 Glucose 108 Calcium 9.6 Total Bilirubin 0.6 AST 33 ALT 35 Alkaline Phosphatase 77 Total Creatine Kinase 117 CK-MB (CK-2) 0.78 CK-MB (CK-2) Rel Index 0.7 L Troponin I < 0.012 Total Protein 7.6 Albumin 4.6 Globulin 3.0 Albumin/Globulin Ratio 1.5 Lipase 159 Assessment & Plan Plan: Assessment/Plan Narrative: 1. 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 Aspirin started 325 mg daily with Lipitor 80 mg daily Permissive hypertension to be provided until tomorrow in a.m.. Note the lisinopril was discontinued. Will resume in a.m. tomorrow 2. History of remote seizures and brain tumor with craniectomy Will continue patient's home medications as tolerated. Time Spent With Patient Time with patient: Greater than 35 minutes (65 min to admit the patient) Quality VTE Deep Vein Thrombosis/Pulmonary Embolism Present on Admission: No
[2018-04-10] MEDS: SENNOSIDES 8.6 MG TABLET 17.2 MG PO (22:03)
[2018-04-10] MEDS: DONEPEZIL 5 MG TABLET 10 MG PO (22:04)
[2018-04-10] MEDS: ATORVASTATIN 20 MG TABLET 80 MG PO (22:04)
[2018-04-10] MEDS: DOCUSATE 100 MG CAPSULE PO (22:04)
[2018-04-10] MEDS: LORATADINE 10 MG TABLET PO (22:04)
[2018-04-10] MEDS: MULTIVITAMIN 1 TABLET 1 TAB PO (22:04)
[2018-04-11] VITALS (10 sets, daily range): BP systolic 143–158; BP diastolic 80–108; PULSE 79–91; RESP 14–18; TEMP 36.6–36.9; O2SAT 94–98
--- NOTE | 2018-04-11 | DI.MRI.S_ITS ---
PROCEDURE: MR HEAD/BRAIN WO/W CON INDICATIONS: new significant left hemiparesis with history of craniectomy TECHNIQUE: Noncontrast axial T1 spin echo, axial T2 fast spin echo, sagittal and axial FLAIR, coronal T2 fast spin echo, axial gradient echo, axial diffusion and ADC through the brain. After the administration of contrast, axial and coronal T1 spin echo with fat saturation through the brain. COMPARISON: [facility], CT, CT HEAD/BRAIN WO CON, 04/10/2018, 13:28. [facility], MR, BRAIN WITHOUT CONTRAST, 11/23/2017, 11:22. [facility], CT, CT ANGIO HEAD AND NECK, 04/10/2018, 15:06. FINDINGS: Image quality: Excellent. CSF spaces: Basal cisterns are patent. No extra-axial fluid collections. Ventricles are normal dilated. Brain: Diffusion weighted images demonstrates restricted diffusion in the right becky consistent with acute/subacute infarct. There is a large area of old cerebral infarction in the right parietal-occipital with encephalomalacia ex vacuo dilation of the occipital horn the right lateral ventricle. No midline shift. No intracranial bleeds or masses. No abnormal intracranial enhancement. There is cerebral volume loss for age. There is periventricular white matter chronic small vessel ischemic change. Susceptibility artifacts on gradient echo images bilaterally are unchanged, compatible with old blood products or dystrophic calcifications. The brainstem appears normal. Normal intravascular flow voids are present. Skull and face: Calvarial marrow is normal in signal. Orbits appear normal. Sinuses: Sinuses and mastoids appear clear. IMPRESSION: 1. Acute or subacute right pontine infarct. 2. 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 3. Generalized cerebral volume loss. 4. Periventricular white matter chronic small vessel ischemic changes. Dictated by: Mireya Burton M.D. on 04/11/2018 at 20:12 Approved by: Mireya Burton M.D. on 04/11/2018 at 20:21
--- NOTE | 2018-04-11 09:29 | PT.IIE ---
Current Diagnoses Cerebral infarction, unspecified (04/10/18) Surgical History (Last Updated 04/10/18 @ 16:23 by Sona Martines, RN) H/O craniotomy (Acute) Medical History (Last Updated 04/10/18 @ 17:26 by Sona Martines, RN) Hyperlipemia (Acute) Hypertension (Acute) Physical Therapy Inpatient Evaluation/Re-Eval Medical Review Prior Functional Status Medical History Reviewed Yes Communication no known deficits, except pt does mention difficulty with memory Mobility and Gait pt reports being completely ind, no devices. Social History Household Members spouse Living Arrangements House Number of Floors (Floors) Two Floors Number of Stairs To Enter/Railing? a few stairs to enter, unsure if there's a rail, inside there is a full flight with railing up to the bedroom . Physical Therapy Current Condition Current Condition Evaluation Date 04/11/18 Treatment Diagnosis L hemiparesis, impaired mobility Onset Date 04/10/18 Subjective Physical Therapy Visit Type Type Initial Evaluation Visit Start Time 08:30 Visit Stop Time 09:12 Total Visit Minutes 42 Physical Therapy Visit Comments Patient Comments Pt denies pain, hopes this is like the last time he was here and his L sided weakness completely resolved. Pt also feels like his speech is impaired still, that it's harder to form words. Therapy Pain Assessment Pain Present Pain Present Denied Pain PT-Bed Mobility Assessment Supine to Sit Supine to Sit Maximum Assistance 2 Person Assistance Head of Bed Elevated Bedrails Sit to Supine Sit to Supine Maximum Assistance 2 Person Assistance Bedrails Scooting Scooting to Edge of Bed Maximum Assistance Scooting Up and Down in Bed Maximum Assistance PT-Transfer Assessment Sit to and From Stand Sit to and from Stand Moderate Assistance 2 Person Assistance Use of Upper Extremities Equipment Transfer Assistive Device Gait Belt Transfers Transfer Destination Bed Bedside Commode Transfer Technique Stand Pivot Transfer Ability Level of Assist Moderate Assistance 2 Person Assistance Comments Mobility Comments Pt having a much easier time transferring bed>bsc to the right, pt able to grab commode arm rest in the R hand and hold onto that for the transfer, it was more of hypbrid squat/stand pivot. Going back to the bed to the L was more challenging. PT wore a gait belt around the upper chest for the pt to hold onto with the R hand for support. Pt able to stand up and then pivot to the bed with 2 person mod A. Pt was able to help more than anticipated. Gait Assessment Comments Gait Comments not appropriate to trial gait at this time Stair Climbing Assessment Comments Stair Climbing Comments not appropriate to trial stairs at this time PT-Balance Assessment Sitting Balance and Reactions Static Sitting Balance Ability Poor Dynamic Sitting Balance Ability Poor Standing Balance and Reactions Static Standing Balance Ability Poor Dynamic Standing Balance Ability Poor Comments Other Balance Tests/Deviations/Treatment Pt fell backward sitting EOB : for the first time, after that pt able to maintain static sitting with close SBA. Orientation Orientation/Cognition Level of Alertness Alert Language Function Ability Hard of Hearing Gross Range of Motion Lower Extremity ROM Assessment Within Functional Limits Strength Lower Extremity Strength Assessment Left Impaired Comments Strength Comments LLE not formally tested in full as pt needing to get to the [facility] right away. Pt does have some voluntary movement in the LLE, grossly thought 2- /5. Muscle Tone Muscle Tone WNL Yes Muscle Tone Location Left Lower Extremity Type of Tone Hypotonicity Severity of Tone Moderate Physical Therapy Treatment Education Education Provided Safety PT Summary Assessment and Plan Potential Rehabilitation Potential Good Status of Condition at Evaluation Evolving Summary Impairments Strength Balance Bed Mobility Transfers Gait Progress Towards Goals Progressing Toward Goals Assessment Summary Pt presents with significant L hemiparesis that is leading to severe limitations in all mobility, currently requiring up to 2 person max A. Pt is significantly below his reported functional baseline but has potential for functional improvement. Pt will benefit from ongoing skilled acute PT with transition to an inpatient rehab facility for ongoing high intensity skilled therapies. Pt has the activity tolerance at this time to tolerate the 3+ hours/day of skilled therapies and the need to be followed by a merchandise team manager in the inpatient rehab setting. Pt is in agreement with this plan. Goals Bed Mobility Goal Minimal Assistance Transfer Goal Minimal Assistance Days to Meet Goals 5 Frequency of Treatment Frequency Of Treatment Twice a Day Treatment Plan Physical Therapy Treatment Plan Bed Mobility Training Transfer Training Gait Training Therapeutic Exercise Balance Retraining Discharge Planning Neuromuscular Re-ed Other Recommendations and Next Treatment sitting balance, strength, Focus standing balance, transfers Recommendations To Nursing Amount of Assist Needed PT/OT Assist Only Mechanical Lift Discharge Recommendations PT Discharge Recommendations Acute Rehab
[2018-04-11] MEDS: ENOXAPARIN 40 MG/0.4 ML SYRINGE SUBCUT (10:05)
--- NOTE | 2018-04-11 10:19 | OT.IP.EVAL ---
Current Diagnoses Cerebral infarction, unspecified (04/10/18) Past Medical History (Last Updated 04/10/18 @ 17:26 by Sona Martines, RN) Hyperlipemia (Acute) Hypertension (Acute) Surgical History (Last Updated 04/10/18 @ 16:23 by Sona Martines, RN) H/O craniotomy (Acute) Occupational Therapy Inpatient Evaluation/Re-Eval M1 PT/OT-IP Prior Functional Status Start: 04/11/18 07:37 Freq: NEEDED Status: Active Protocol: Document 04/11/18 09:12 RS (Rec: 04/11/18 09:29 RS [id number]) Medical Review Prior Functional Status Medical History Reviewed Yes Communication no known deficits, except pt does mention difficulty with memory Mobility and Gait pt reports being completely ind, no devices. Social History Household Members spouse Living Arrangements House Number of Floors (Floors) Two Floors Number of Stairs To Enter/Railing? a few stairs to enter, unsure if there's a rail, inside there is a full flight with railing up to the bedroom . M1 PT/OT-IP Prior Functional Status Start: 04/11/18 09:43 Freq: NEEDED Status: Active Protocol: Document 04/11/18 09:43 [facility] (Rec: 04/11/18 10:19 [facility] [id number]) Medical Review Prior Functional Status Medical History Reviewed Yes Communication no known deficits, except pt does mention difficulty with memory Mobility and Gait pt reports being completely ind, no devices. Activities of Daily Living and IADL's Pt states able to IADL needs and self care, however pt is poor historian due to decreased short term memory and reported on last admission in 11/2017 that pt has dementia. Per last time states pt needs assist for completeness for self-care and family does all IADl needs for pt. Social History Household Members spouse Living Arrangements House Number of Floors (Floors) Two Floors Number of Stairs To Enter/Railing? a few stairs to enter, unsure if there's a rail, inside there is a full flight with railing up to the bedroom . Per last admission pt has 3 steps to get in and 12 steps with left hand rail to get up. Home Environment Standard Height Toilet Tub/Shower Additional Social History Comment To clarify all information with pt's . M2 OT-IP Current Condition Start: 04/11/18 09:43 Freq: Status: Active Protocol: Document 04/11/18 09:43 [facility] (Rec: 04/11/18 10:19 [facility] [id number]) Occupational Therapy Current Condition Current Condition Evaluation Date 04/11/18 Treatment Diagnosis Left sided weakness Diagnosis Onset Date 04/10/18 M3 OT- IP Subjective and Pain Start: 04/11/18 09:43 Freq: Status: Active Protocol: Document 04/11/18 09:43 [facility] (Rec: 04/11/18 10:19 [facility] [id number]) OT- Subjective Occupational Therapy Visit Type Type Initial Evaluation Visit Start Time 08:37 Visit Stop Time 09:20 Total Visit Minutes 43 Occupational Therapy Visit Comments Patient Comments Pt concerned that he is unable to control and use left side of his body. OT Pain Assessment Pain When Pain Assessed At Rest Pain Present Pain Present Denied Pain M4 OT- IP ADL's Start: 04/11/18 09:43 Freq: Status: Active Protocol: Document 04/11/18 09:43 [facility] (Rec: 04/11/18 10:19 [facility] [id number]) OT KKE-Ioen-Drobzqw General Evaluation Self-Feeding Ability Standby Assistance Areas Needing Assistance Opening Containers Comments OT Self-Feeding Comments Per nursing aid pt able to use right hand to eat independently and just needing assist for set-up. OT ADL-Dressing General Eval Lower Body Dressing Ability Maximum Assistance Areas Needing Assistance Retrieving/Set-up of Clothing Underpants/Brief Socks Comments OT Dressing Comments Due to poor control and decreased functional use of left arm, pt needing MAXA for LB dressing needs at this time . OT ADL-Toileting General Evaluation Toileting Ability Total Assistance Areas Needing Assistance Manage Clothing Perform Perineal Hygiene Devices Toileting Assistive Devices Commode Comments OT Toileting Comments Assit for PT to stand and IAD to assist for hygiene needs. Therefore two person assist at this time. M5 OT- IP IADL's Start: 04/11/18 09:43 Freq: Status: Active Protocol: Document 04/11/18 09:43 [facility] (Rec: 04/11/18 10:19 [facility] [id number]) OT-Instrumental Activities of Daily Living Home Safety Awareness Awareness of Need for Assistance at Home Decreased Awareness Ability to Problem Solve Emergency Unable to Problem Solve Situations Medication Management Medication Management Caregiver Administers Money Management Money Management Caregiver Provides Assistance Meal Preparation Meal Preparation Caregiver Provides Assist Shell Assembler Shell Assembler Caregiver Provides Assist Driving Driving Caregiver Provides Assist M6 OT- IP Functional Cognition Start: 04/11/18 09:43 Freq: Status: Active Protocol: Document 04/11/18 09:43 [facility] (Rec: 04/11/18 10:19 [facility] [id number]) Cognitive Factors Limiting Selfcare Function Cognitive Ability Level of Alertness Alert Confusional State Patient Orientation Name Attention Span Ability Capable of Focused Attention Unable to Sustain Attention Ability to Follow Commands Able to Follow One Step Commands with Increased Time Able to Follow One Step Commands with Repetition Memory Description Short Term Impaired Tobacco Dipper Impaired Working Impaired Safety Awareness Underestimates Need for Assistance Problem Solving Ability Needs Assist to Identify Solutions Cognitive Comments Cognitive Assessment Comments Per pt's chart from last admission 11/2017, states that pt has dementia. OT- Vision and Hearing OT- Hearing Assessment OT- Hearing Assessment Use of Hearing Aids OT- Vision Assessment Vision Assessment Comments Pt able to read the clock time correctly. M7 OT- IP Mobility and Balance Start: 04/11/18 09:43 Freq: Status: Active Protocol: Document 04/11/18 09:43 [facility] (Rec: 04/11/18 10:19 [facility] [id number]) OT- Bed Mobility Assessment Rolling Type of Rolling Roll to Right Level of Assistance Maximum Assistance Supine to Sit Supine to Sit Assist Moderate Assistance 2 Person Assistance Sit to Supine Sit to Supine Assist Moderate Assistance 2 Person Assistance Scooting Scooting to Edge of Bed Moderate Assistance 2 Person Assistance OT-Transfer Assessment Sit to and From Stand Sit to and from Stand Moderate Assistance 2 Person Assistance Transfers Transfer Ability Moderate Assistance Maximum Assistance 2 Person Assistance Technique Transfer Destination Bed Bedside Commode Transfer Technique Stand Pivot Devices Transfer Assistive Devices Gait Belt Comments Mobility Comments Pt ataxic movements and needing one person to help stand and other person to help guide his hips to and from the BSC to bed. Pt needs step by step instructions. OT- Balance Assessment Sitting Balance and Reactions Static Sitting Balance Ability Fair Dynamic Sitting Balance Ability Poor Standing Balance and Reactions Static Standing Balance Ability Poor Dynamic Standing Balance Ability Poor M8 OT- IP Objective Assessments Start: 04/11/18 09:43 Freq: Status: Active Protocol: Document 04/11/18 09:43 [facility] (Rec: 04/11/18 10:19 [facility] [id number]) OT Gross Range of Motion Upper Extremity Range of Motion Assessment Left Impaired ROM Impairments WFL for PROM for LUE, AROM impaired due to weakness and unable to lift arm against gravity at this time. OT Strength Comments Strength Comments LUE 2-/5 to 3-/5 from proximal to distal. RUE intact and WFL OT-Muscle Tone Assessment Muscle Tone WNL No Muscle Tone Location Left Lower Extremity Type of Tone Hypotonicity Severity of Tone Moderate OT Sensation Assessment Comments Summary Comments Decreased for sensation light touch for localization for forearm to fingertips. Decreased proprioception for LUE and noted neglect as well. M9 OT- IP Assessment and Plan Start: 04/11/18 09:43 Freq: Status: Active Protocol: Document 04/11/18 09:43 [facility] (Rec: 04/11/18 10:19 [facility] [id number]) OT Summary Assessment and Plan Potential Rehabilitation Potential Good Analytic Complexity at Evaluation Moderate Summary OT Impairments Range of Motion Strength Balance Coordination Tone Functional Cognition Functional Mobility Grooming Dressing Toileting Bathing Toilet Transfers Shower Transfers Progress Towards Goals Slow Progress due to Medical Issues Slow Progress due to Activity Tolerance Slow Progress due to Cognition Assessment Summary Pt MOD complexity main barriers are steps, decreased use and function of left side UE and LE, decreased balance, proprioception for LUE, and now needing extensive assist for all ADl and functional mobility needs-2 person assist . Goals Grooming Goal Minimal Assistance Dressing Goal Moderate Assistance Toileting Goal Moderate Assistance Bathing Goal Moderate Assistance Toilet Transfer Goal Moderate Assistance Shower Transfer Goal Moderate Assistance Patient/Caregiver Education Goal Caregiver Independent Assisting Patient Days to Meet Goals 7 Frequency of Treatment Frequency Of Treatment Once a Day Treatment Plan OT Treatment Plan ADL Training Functional Cognition Training Functional Mobility Neuromuscular Re-education Patient/Family Education Discharge Planning Other Treatment Recommendations and Next Incorporation of RUE for ADL's Treatment Focus . Discharge Recommendations OT Discharge Recommendations SNF Rehab Other Discharge Recommendations If pt improves, may be able to go home if able to have enough assist at home. Home Equipment Needs Pending clarification for on equipment that they already have.
--- NOTE | 2018-04-11 10:44 | PC.NURSE ---
Addendum entered by Shannon Martinez R.N. 04/11/18 15:32: Late entry- MRI order: Dr Simons had ordered an MRI for this patient to help confirm inpatient status (CT did not show evidence of CVA). Due to the fact that the MRI machine is temporary (located outside in a trailer), patient will not be able to get into it because he cannot walk (and per DI tech he would have to walk at least 3-4 feet inside the MRI trailer to get to the actual MRI machine). This report writer let Dr Simons know this, and he understands, but still wants the patient to have the MRI. This report writer had multiple discussions with discharge rn, director heart and care management. Kavita shift discharge rn Mandy has been briefed on the situation (by offgoing discharge rn Radha) and will work on making necessary arrangements. Original Note: Addendum entered by Shannon Martinez R.N. 04/11/18 13:02: Patient had urge for another BM, so we assisted to BSC from chair using reid lift (PT/OT at lunch). The pull-up that he was wearing was pretty heavily saturated with urine, which it wasn't the last time we tried to help him with the urinal. He wasn't aware that he had voided, but no longer verbalizes need to void. Back in chair now with brief in place. Light in reach, chair alarm on. Family in visiting. Original Note: Addendum entered by Shannon Martinez R.N. 04/11/18 11:13: Patient C/O feels like he needs to urinate. Tried with FURNITURE ARRANGER assist after breakfast but could not go. Bladder scan at that time showed 139 ml. Patient's daughter reported that he has a hard time voiding without privacy, so we have him set up with the urinal now and are giving him a little time to himself. Continue to monitor. Original Note: Shift summary: Awake and alert. Oriented to self/place/situation/month and family, a bit forgetful. NIH score 9 this morning. He was able to move his LUE and LLE w/ slight effort against gravity, and per PT/OT he was able to use his left leg to some extent during transfer to [facility]. No contract runner with L hand. Reports sensation a bit dulled in L sided extremities. Speech mostly clear, slight slurring with the occasional word. Daughter reports speech is improved compared to how he presented initially, but is still not back to normal. Has peripheral vision loss on both sides but reports this is not a new finding (and daughter confirms). Tele monitoring ongoing. Denies any pain or discomfort. Tolerated his heart healthy diet without any s/sx aspiration. Back in bed after up with therapy. Remains PT only transfer at this time. Able to make needs known and calls appropriately. Light in reach, bed alarm on.
--- NOTE | 2018-04-11 12:22 | CM.DANOTE ---
Patient is a 62 year old male who was admitted on 04/10/18 for L sided Weakness. Pt has [facility] for [facility] and [facility] EMR was reviewed. Per MD, waiting for PT/OT/ST eval and recommendations to determine home vs SNF. Per PT, recommending possible Inpt Rehab vs SNF. Per OT, pending progress possible SNF vs Home with . ST still pending. SW met bedside with pt and explained role and placed name and contact info on the white board and pt confirmed that he lives in a condo with his in [place] and she is his primary caregiver. Pt unsure if they have completed DPOA pwk before but will ask his . Pt denies any hx of HH or SNF and is aware that he made need some extra support at d/c pending his progress. Pt seems to be alert and oriented but slightly forgetful or struggles to recall small bits of information. Pt states that his spouse will be bedside later today. Plan: SW to follow closely for further PT/OT/ST recommendations to determine if pt will be safe for d/c home with spouse when medically stable. If SNF or Inpt Rehab needed, pt's VA insurance may be a barrier to placement. SHEILA Gomez Discharge Planning/Care Management CM Discharge Assessment Start: 04/11/18 12:18 Freq: Status: Active Protocol: Document 04/11/18 12:18 (Rec: 04/11/18 12:22 [id number]) Discharge Planning Assessment Assigned Public Health SHEILA Gomez DPOA/Assigned Designee Name informal Yaima Demarco Contact Information [phone] Advance Directives? Yes Advance Directives on File No History Provided By Patient Family Member Medical Record Has Patient been admitted in last 30 No days? Prior Living Arrangements Apartment/Condo Household Members spouse Type of transporation used prior to Relies on Others admit Independent with ADL's Yes: mostly Is patient alert and oriented? Yes: mostly, some cog impairment at baseline Needs Assistance With Meal Prep Managing Medications Home Chores / Shopping Comment Spouse is pt's primary caregiver. Caregiver for Another No Patient/Family Preference Retirement Facility Comment Pending pt's progress, likely SNF vs Home Barriers to Discharge Yes Comment Pt's [facility] insurance may be a barrier to SNF rehab placement Discharge Plan Home Community Services Physical Therapy Occupational Therapy Speech Language Pathology Transportation Arrangement Pending pt's progress, spouse can likely provide transport, but if SNF needed likely facility van Additional Comment Waiting for further PT/OT/ST to determine d/c needs. Whiteboard Updated in Patient Room with Yes name and ext. # of Public Health Review Status In Process Please Provide Date Initial DC 04/11/18 Assessment Was Performed Next Review Type Continued Stay Review
--- NOTE | 2018-04-11 13:18 | PT.IPTN ---
Current Diagnoses Cerebral infarction, unspecified (04/10/18) Physical Therapy Treatment Note M2 PT-IP Current Condition Start: 04/11/18 07:37 Freq: NEEDED Status: Active Protocol: Document 04/11/18 09:12 RS (Rec: 04/11/18 09:29 RS [id number]) Physical Therapy Current Condition Current Condition Evaluation Date 04/11/18 Treatment Diagnosis L hemiparesis, impaired mobility Onset Date 04/10/18 M3 PT-IP Subjective Start: 04/11/18 07:37 Freq: NEEDED Status: Active Protocol: Document 04/11/18 11:30 RS (Rec: 04/11/18 13:18 RS [id number]) Subjective Physical Therapy Visit Type Type Treatment Note Visit Start Time 11:30 Visit Stop Time 11:53 Total Visit Minutes 23 Physical Therapy Visit Comments Patient Comments Pt slightly perseverative on needing to urinate but very willing to participate in therapy session. Therapy Pain Assessment Pain Present Pain Present Denied Pain M4 PT-IP Mobility and Gait Start: 04/11/18 07:37 Freq: NEEDED Status: Active Protocol: Document 04/11/18 11:30 RS (Rec: 04/11/18 13:18 RS [id number]) PT-Bed Mobility Assessment Supine to Sit Supine to Sit Maximum Assistance 1 Person Assistance Head of Bed Elevated Bedrails Scooting Scooting to Edge of Bed Moderate Assistance PT-Transfer Assessment Sit to and From Stand Sit to and from Stand Moderate Assistance 1 Person Assistance Use of Upper Extremities Equipment Transfer Assistive Device Gait Belt Transfers Transfer Destination Chair Transfer Technique Stand Pivot Transfer Ability Level of Assist Moderate Assistance 2 Person Assistance Use of Upper Extremities Comments Mobility Comments Pt transferred from bed to chair to the L, again with pt holding onto a gait belt around the PT's upper torso, 2nd person assist to guide pt' s hips over to the chair. Pt seemed to actually take a step with each foot to get square to the chair before sitting down. Stand to sit was more of a plop. Gait Assessment Comments Gait Comments not appropriate to trial gait at this time Stair Climbing Assessment Comments Stair Climbing Comments not appropriate to trial stairs at this time PT-Balance Assessment Sitting Balance and Reactions Static Sitting Balance Ability Fair Dynamic Sitting Balance Ability Poor Standing Balance and Reactions Static Standing Balance Ability Poor Dynamic Standing Balance Ability Poor Comments Other Balance Tests/Deviations/Treatment Better static sitting balance : this session, but definitely still needs SBA<>CGA. M5 PT-IP Objective Assessments Start: 04/11/18 07:37 Freq: NEEDED Status: Active Protocol: Document 04/11/18 09:12 RS (Rec: 04/11/18 09:29 RS [id number]) Orientation Orientation/Cognition Level of Alertness Alert Language Function Ability Hard of Hearing Gross Range of Motion Lower Extremity ROM Assessment Within Functional Limits Strength Lower Extremity Strength Assessment Left Impaired Comments Strength Comments LLE not formally tested in full as pt needing to get to the [facility] right away. Pt does have some voluntary movement in the LLE, grossly thought 2- /5. Muscle Tone Muscle Tone WNL Yes Muscle Tone Location Left Lower Extremity Type of Tone Hypotonicity Severity of Tone Moderate M6 PT-IP Treatment Start: 04/11/18 07:37 Freq: NEEDED Status: Active Protocol: Document 04/11/18 09:12 RS (Rec: 04/11/18 09:29 RS [id number]) Physical Therapy Treatment Education Education Provided Safety M7 PT-IP Assessment and Plan Start: 04/11/18 07:37 Freq: NEEDED Status: Active Protocol: Document 04/11/18 11:30 RS (Rec: 04/11/18 13:18 RS [id number]) PT Summary Assessment and Plan Potential Rehabilitation Potential Good Status of Condition at Evaluation Evolving Summary Impairments Strength Balance Bed Mobility Transfers Gait Progress Towards Goals Progressing Toward Goals Assessment Summary Pt continues to demonstrate significant L weakness, but was able to transfer with more active use of the LLE for stand-pivot transfers. Continue to recommend pt transition to [facility] once medically ready. Goals Bed Mobility Goal Minimal Assistance Transfer Goal Minimal Assistance Days to Meet Goals 5 Frequency of Treatment Frequency Of Treatment Twice a Day Treatment Plan Physical Therapy Treatment Plan Bed Mobility Training Transfer Training Gait Training Therapeutic Exercise Balance Retraining Discharge Planning Neuromuscular Re-ed Other Recommendations and Next Treatment sitting balance, standing Focus balance, transfers Recommendations To Nursing Amount of Assist Needed PT/OT Assist Only Mechanical Lift Discharge Recommendations PT Discharge Recommendations Acute Rehab
--- NOTE | 2018-04-11 15:26 | ST.IPIE ---
Current Diagnoses Cerebral infarction, unspecified (04/10/18) Past Medical History (Last Updated 04/10/18 @ 17:26 by Sona Martines RN) Hyperlipemia (Acute Medical) Hypertension (Acute Medical) ST IP Initial Evaulation Report Motor Speech Evaluation Start: 04/11/18 15:05 Freq: Status: Active Protocol: Document 04/11/18 15:06 TLC (Rec: 04/11/18 15:26 TLC [id number]) Motor Speech Evaluation Session Time Total Visit Minutes 20 Visit Information Visit Number 1 Setting Setting Acute Care Next Note Type Next Note Type Treatment Note Patient History Source: [employer] [facility] Patient History Patient was admitted for new left sided yvette-paresis and slurring of speech which he woke up with yesterday. He has a history of a brain tumor with craniotomy and radiation in 1976. He was diagnosed with dementia 3-4 years ago, but his neurologist is unsure if the dementia is Alzheimer's related or an effect of the radiation and brain tumor. He lives at home with his and two grown sons. He has not worked since his brain tumor in 1976. He was seen for a speech evaluation in November 2017 during a hospitalization for similar symptoms. At that time , he was found to have mild expressive language affecting higher level word finding. Communication was within functional limits for conversational exchange. Referral Referring Physician Dr. Simons Mental Status Mental Status Alert Cooperative Subjective Observations Subjective Patient seen sitting up in chair in room with present, wearing hearing aids in both ears. Oral Motor Lips Function Mild Impairment Retraction Droop on left side Tongue Function Mild Impairment Protrusion Left lingual deviation Lateralization Slight incoordination Jaw Function WFL Soft Palate Function WFL Respiration/Phonation Phonation Quality WFL Oral Reading Quality WFL Conversation Quality WFL Diadochokinetic Rates P^ Quality Mild Impairment T^ Quality Mild Impairment K^ Quality Mild Impairment P^T^K^ Quality Mild Impairment Speech Intelligibility Conversation Severity WFL Awareness/Strategy Use Description Type of awareness/use Uses intermittently Findings Details Motor Speech Function Mild Impairment Assessment Details Assessment Patient presents with mildly decreased lingual and labial strength, coordination and range of motion. This results in mildly dysarthric speech, which is more noticeable with multisyllabic words. His speech is 100% intelligible and language is within functional limits for conversational exchange. He asks for frequent repetitions and processing time appears delayed, though this may be due to hearing impairment. He reports he has occasional word finding difficulty, though this appears to be his baseline. Patient passed 3 oz water swallow test. Nursing reports patient has not shown s/sx of aspiration or difficulty during meals. Patient and family deny any difficulty with swallowing;therefore, full swallow evaluation not warranted at this time. Prognosis Rehabilitation Potential Good Recommendations Treatment Recommended Yes Therapy Recommendations Follow up with patient for ongoing assessment and treatment of mild dysarthria. Short Term Goals Patient will read multi- syllabic words aloud using dysarthria speaking strategies as provided by in order to improve clarity of speech and return to baseline.
--- NOTE | 2018-04-11 15:44 | OT.IP.TRT ---
Current Diagnoses Cerebral infarction, unspecified (04/10/18) Occupational Therapy Treatment Note M2 OT-IP Current Condition Start: 04/11/18 09:43 Freq: Status: Active Protocol: Document 04/11/18 15:36 [facility] (Rec: 04/11/18 15:44 [facility] [id number]) Occupational Therapy Current Condition Current Condition Evaluation Date 04/11/18 Treatment Diagnosis Left sided weakness Diagnosis Onset Date 04/10/18 M3 OT- IP Subjective and Pain Start: 04/11/18 09:43 Freq: Status: Active Protocol: Document 04/11/18 15:36 [facility] (Rec: 04/11/18 15:44 [facility] [id number]) OT- Subjective Occupational Therapy Visit Type Type Treatment Note Visit Start Time 15:05 Visit Stop Time 15:30 Total Visit Minutes 25 Occupational Therapy Visit Comments Patient Comments Pt wanting to get back to bed. OT Pain Assessment Pain When Pain Assessed At Rest Pain Present Pain Present Denied Pain M4 OT- IP ADL's Start: 04/11/18 09:43 Freq: Status: Active Protocol: Document 04/11/18 09:43 [facility] (Rec: 04/11/18 10:19 [facility] [id number]) OT [facility] General Evaluation Self-Feeding Ability Standby Assistance Areas Needing Assistance Opening Containers Comments OT Self-Feeding Comments Per nursing aid pt able to use right hand to eat independently and just needing assist for set-up. OT ADL-Dressing General Eval Lower Body Dressing Ability Maximum Assistance Areas Needing Assistance Retrieving/Set-up of Clothing Underpants/Brief Socks Comments OT Dressing Comments Due to poor control and decreased functional use of left arm, pt needing MAXA for LB dressing needs at this time . OT ADL-Toileting General Evaluation Toileting Ability Total Assistance Areas Needing Assistance Manage Clothing Perform Perineal Hygiene Devices Toileting Assistive Devices Commode Comments OT Toileting Comments Assit for PT to stand and IAD to assist for hygiene needs. Therefore two person assist at this time. M5 OT- IP IADL's Start: 04/11/18 09:43 Freq: Status: Active Protocol: Document 04/11/18 09:43 [facility] (Rec: 04/11/18 10:19 [facility] [id number]) OT-Instrumental Activities of Daily Living Home Safety Awareness Awareness of Need for Assistance at Home Decreased Awareness Ability to Problem Solve Emergency Unable to Problem Solve Situations Medication Management Medication Management Caregiver Administers Money Management Money Management Caregiver Provides Assistance Meal Preparation Meal Preparation Caregiver Provides Assist Home Care Administrator Home Care Administrator Caregiver Provides Assist Driving Driving Caregiver Provides Assist M6 OT- IP Functional Cognition Start: 04/11/18 09:43 Freq: Status: Active Protocol: Document 04/11/18 09:43 [facility] (Rec: 04/11/18 10:19 [facility] [id number]) Cognitive Factors Limiting Selfcare Function Cognitive Ability Level of Alertness Alert Confusional State Patient Orientation Name Attention Span Ability Capable of Focused Attention Unable to Sustain Attention Ability to Follow Commands Able to Follow One Step Commands with Increased Time Able to Follow One Step Commands with Repetition Memory Description Short Term Impaired Psychiatric Aides Teacher Impaired Working Impaired Safety Awareness Underestimates Need for Assistance Problem Solving Ability Needs Assist to Identify Solutions Cognitive Comments Cognitive Assessment Comments Per pt's chart from last admission 11/2017, states that pt has dementia. OT- Vision and Hearing OT- Hearing Assessment OT- Hearing Assessment Use of Hearing Aids OT- Vision Assessment Vision Assessment Comments Pt able to read the clock time correctly. M7 OT- IP Mobility and Balance Start: 04/11/18 09:43 Freq: Status: Active Protocol: Document 04/11/18 15:36 [facility] (Rec: 04/11/18 15:44 [facility] [id number]) OT- Bed Mobility Assessment Sit to Supine Sit to Supine Assist Moderate Assistance 2 Person Assistance OT-Transfer Assessment Sit to and From Stand Sit to and from Stand Moderate Assistance 2 Person Assistance Transfers Transfer Ability Maximum Assistance 2 Person Assistance Technique Transfer Destination Bed Transfer Technique Stand Step Pivot Devices Transfer Assistive Devices Gait Belt Comments Mobility Comments Pt dependent for LLE control and to help hold LUE during transfer back to the bed. At this time would be safer to use reid lift for transfers when not being seen by therapy . OT- Balance Assessment Sitting Balance and Reactions Static Sitting Balance Ability Good Dynamic Sitting Balance Ability Fair Standing Balance and Reactions Static Standing Balance Ability Poor Dynamic Standing Balance Ability Poor M8 OT- IP Objective Assessments Start: 04/11/18 09:43 Freq: Status: Active Protocol: Document 04/11/18 09:43 [facility] (Rec: 04/11/18 10:19 [facility] [id number]) OT Gross Range of Motion Upper Extremity Range of Motion Assessment Left Impaired ROM Impairments WFL for PROM for LUE, AROM impaired due to weakness and unable to lift arm against gravity at this time. OT Strength Comments Strength Comments LUE 2-/5 to 3-/5 from proximal to distal. RUE intact and WFL OT-Muscle Tone Assessment Muscle Tone WNL No Muscle Tone Location Left Lower Extremity Type of Tone Hypotonicity Severity of Tone Moderate OT Sensation Assessment Comments Summary Comments Decreased for sensation light touch for localization for forearm to fingertips. Decreased proprioception for LUE and noted neglect as well. M9 OT- IP Assessment and Plan Start: 04/11/18 09:43 Freq: Status: Active Protocol: Document 04/11/18 15:36 [facility] (Rec: 04/11/18 15:44 [facility] [id number]) OT Summary Assessment and Plan Summary Assessment Summary Saw pt second time due to able to clarify information with his and son and able to assist pt back to bed. Goals Days to Meet Goals 7 Frequency of Treatment Frequency Of Treatment Twice a Day Discharge Recommendations Other Discharge Recommendations If showing progress may benefit from acute inpt rehab setting.
--- NOTE | 2018-04-11 17:03 | PM.PN.1 ---
Subjective Date Patient Seen: 04/11/18 Time Patient Seen: 13:03 Interval history: Follow-up on patient with recent right sided CVA with left hemiparesis and slurring of speech. Review of systems Patient notes continuance of the left hemiparesis. No chest pain or shortness of breath no fever Exam Vital Signs (past 8 hours): - 04/11/18 11:32 04/11/18 12:30 04/11/18 15:50 Temperature 98 F Pulse Rate 87 Respiratory Rate 16 Blood Pressure 143/93 H Pulse Oximetry 96 96 98 04/11/18 16:00 Temperature 98.4 F Pulse Rate 91 H Respiratory Rate 16 Blood Pressure 151/98 H Pulse Oximetry 98 Oxygen Delivery Method Room Air Oxygen Flow Rate 0 Narrative Exam Narrative: General appearance patient is awake and alert no apparent distress at rest Psychiatric are oriented well as self mood is pleasant cooperative affect is appropriate Respiratory fairly clear to auscultation no wheezes no crackles good air flow noted Cardiovascular regular in rate and rhythm, no murmurs rubs or gallops +3 pulses to extremities Gastrointestinal soft nontender positive bowel sounds no masses no distension no bruits Neurologic continued left hemiparesis noted a similar presentation as during my exam yesterday. Patient with the slurred speech that persist. Lymphatics no lymphadenopathy to neck or axilla Objective Labs Result Diagrams: 04/10/18 14:12 04/10/18 14:12 Assessment & Plan Plan: Assessment/Plan Narrative: 1. 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 Aspirin started 325 mg daily and Lipitor 80 mg daily Permissive hypertension provided first 24 hours since stroke symptoms first noted. . Note the lisinopril was discontinued initially and resumed in a.m. today Attempting to get a MRI of the brain to describe and confirm the presence of the acute CVA. The initial CT of the head was negative for stroke. 2. History of remote seizures and brain tumor with craniectomy Continued patient's home medications as tolerated. Time Spent With Patient Time with patient: 25 - 35 minutes (25 min) Quality VTE Deep Vein Thrombosis/Pulmonary Embolism Present on Admission: No
--- NOTE | 2018-04-11 17:29 | PC.NURSE ---
Addendum entered by Merle Lopez R.N. 04/11/18 19:20: Pt ate entire dinner. Pt fed him. PT repositioned in bed and pt given call light. will return. belongings and call light within reach. Pt will be staying the night. Original Note: Addendum entered by Merle Lopez R.N. 04/11/18 18:05: Pt arrived back from MRI, did well with transfer. currently eating dinner with 's assist. no changes in pt condition. pt stated well glad we got that out of the way told to transfer pt with nursing staff per community sports coordinator. Original Note: Assumed care of pt from outgoing shift at 155 9-4. Pt awake and alert. eating ice cream with help of . family at bedside. Pt belongings and call light within reach. Pt is slow to respond. does understand questions, did not notice any slurring of speech. left side of mouth does not raise with smile. per family- pt comes and goes with the slurry speech. they believe he is worse when he is more tired. Pt uses call light. belongings and call light within reach. will continue to monitor pt for safety.
[2018-04-11] MEDS: LISINOPRIL 10 MG TABLET PO (20:15)
[2018-04-11] MEDS: DONEPEZIL 5 MG TABLET 10 MG PO (20:15)
[2018-04-11] MEDS: MULTIVITAMIN 1 TABLET 1 TAB PO (20:15)
[2018-04-11] MEDS: LORATADINE 10 MG TABLET PO (20:15)
[2018-04-11] MEDS: SODIUM CHLORIDE 0.9% FLUSH 10 ML IV (20:16)
[2018-04-11] MEDS: ATORVASTATIN 20 MG TABLET 80 MG PO (20:16)
[2018-04-12] VITALS (8 sets, daily range): BP systolic 108–146; BP diastolic 62–93; PULSE 72–81; RESP 14–20; TEMP 36.4–36.8; O2SAT 92–97
--- NOTE | 2018-04-12 | DI.ECHO.S_ITS ---
[facility] +---------+ : : [address] : [address] [address] : : : : [id number] : : : : Phone: [phone]+ Echocardiogram Report + + :Name: DILEEP STEPHENS Study Date: 04/12/2018 Height: 69 in : :[facility] Exam Location: [facility] Weight: 199 lb : : Gender: Male BSA: 2.1 m2 : :: 1955 Age: 62 yrs BP: 136/64 mmHg: :Reason For Study: STROKE : : Performed By: Aneta Huffman : :Referring: REMIGIO BELCHER : + + Interpretation Summary The left ventricle is normal in size. The left ventricular ejection fraction is normal. The ejection fraction is estimated to be 60-65%. There are no focal wall motion abnormalities. Assessment of diastolic parameters indicates normal left ventricular diastolic function and normal filling pressures. The right ventricle is normal in size and function. Pulmonary artery pressures cannot be estimated because of the lack of a measurable TR jet velocity. The left atrium is borderline dilated. The right atrium is mildly dilated. Injection of contrast documented no interatrial shunt. There is no significant valvular heart disease. The aortic arch is at the upper limits of normal in size. Procedure: A two-dimensional transthoracic echocardiogram with color flow and Doppler was performed. The study quality was technically adequate. There is no prior echocardiogram noted for this patient. A saline contrast injection was performed to assess for cardiac shunting. The patient was in normal sinus rhythm during the exam. Left Ventricle: The left ventricle is normal in size. There is moderate proximal septal thickening noted. The left ventricular ejection fraction is normal. The ejection fraction is estimated to be 60-65%. There are no focal wall motion abnormalities. Assessment of diastolic parameters indicates normal left ventricular diastolic function and normal filling pressures. Right Ventricle: The right ventricle is normal in size and function. Atria: The left atrium is borderline dilated. The right atrium is mildly dilated. Injection of contrast documented no interatrial shunt. Mitral Valve: The mitral valve leaflets appear normal. There is no evidence of stenosis, fluttering, or prolapse. There is trace mitral regurgitation. Aortic Valve: The aortic valve is normal in structure and function. No aortic regurgitation is present. Tricuspid Valve: The tricuspid valve is normal. There is a trace or physiologic amount of tricuspid regurgitation. Pulmonary artery pressures cannot be estimated because of the lack of a measurable TR jet velocity. Pulmonic Valve: The pulmonic valve is not well seen, but is grossly normal. There is a trace or physiologic amount of pulmonic regurgitation. There is no significant valvular heart disease. Great Vessels: The aortic root is normal size. The ascending aorta is normal in size. The aortic arch is at the upper limits of normal in size. The pulmonary is not well visualized. The IVC is of normal diameter and collapses greater than 50% with a sniff. This suggests a low right atrial pressure of 3 mm Hg. Pericardium/ Pleura There is no pericardial effusion. There is no pleural effusion. MMode/2D Measurements & Calculations LVIDd: 4.8 cm LVOT diam: 2.2 cm LVIDs: 2.9 cm Ao root diam: 3.5 cm FS: 38.3 % asc Aorta Diam: 3.0 cm EPSS: 0.37 cm Ao Arch Diam (Prox Trans): 3.3 cm IVSd: 1.5 cm LVPWd: 0.86 cm LV campos. diameter/BSA (cm/m^2): 2.3 LV sys. diameter/BSA (cm/m^2): 1.4 LA A2 area: 16.7 cm2 RA long axis: 6.4 cm LA A4 area: 28.9 cm2 RA area: 23.3 cm2 LA length (vol): 6.3 cm RA vol: 71.9 ml LA vol: 65.1 ml RA : 34.9 ml/m2 LA vol index: 31.6 ml/m2 IVC diam: 1.7 cm RVD1 (basal): 3.7 cm RVD2 (mid): 2.6 cm TAPSE: 2.4 cm Doppler Measurements & Calculations Ao V2 max: 108.8 cm/sec LVOT Max Ector: 109.7 cm/sec Ao V2 mean: 75.0 cm/sec LV V1 max P.8 mmHg Ao max P.7 mmHg LV V1 VTI: 19.8 cm Ao mean P.6 mmHg LEOLA(I,D): 3.6 cm2 Ao V2 VTI: 21.2 cm LEOLA(V,D): 3.9 cm2 sev ratio: 0.94 LEOLA indexed to BSA (cm^2/m^2): 1.8 MV E max ector: 67.7 cm/sec PA V2 max: 84.2 cm/sec MV A max ector: 60.8 cm/sec PA V2 mean: 51.3 cm/sec MV E/A: 1.1 PA mean P.4 mmHg Med Peak E' Ector: 6.4 cm/sec PA pr(Accel): 36.6 mmHg E/E' med: 10.5 Lat Peak E' Ector: 8.8 cm/sec E/E' lat: 7.7 E/e' average: 9.1 MV dec time: 0.19 sec MV P1/2t: 55.9 msec MV P1/2t max ector: 67.9 cm/sec MVA(P1/2t): 3.9 cm2 Reading Physician:FRANTZ
[2018-04-12] MEDS: DOCUSATE 100 MG CAPSULE PO ×2 (09:01→20:37)
[2018-04-12] MEDS: ENOXAPARIN 40 MG/0.4 ML SYRINGE SUBCUT (09:01)
[2018-04-12] MEDS: SODIUM CHLORIDE 0.9% FLUSH 10 ML IV (09:01)
--- NOTE | 2018-04-12 10:01 | PT.IPTN ---
Current Diagnoses Cerebral infarction, unspecified (04/10/18) Physical Therapy Treatment Note M2 PT-IP Current Condition Start: 04/11/18 07:37 Freq: NEEDED Status: Active Protocol: Document 04/11/18 09:12 RS (Rec: 04/11/18 09:29 RS [id number]) Physical Therapy Current Condition Current Condition Evaluation Date 04/11/18 Treatment Diagnosis L hemiparesis, impaired mobility Onset Date 04/10/18 M3 PT-IP Subjective Start: 04/11/18 07:37 Freq: NEEDED Status: Active Protocol: Document 04/12/18 10:01 MDD (Rec: 04/12/18 12:04 MDD [id number]) Subjective Physical Therapy Visit Type Type Treatment Note Visit Start Time 09:40 Visit Stop Time 10:01 Total Visit Minutes 21 Notes Performed as co-treatment with OT today. 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 Reports he feels like he can move his left leg a little better today. Therapy Pain Assessment Pain Present Pain Present Denied Pain M4 PT-IP Mobility and Gait Start: 04/11/18 07:37 Freq: NEEDED Status: Active Protocol: Document 04/12/18 10:01 MDD (Rec: 04/12/18 12:04 MDD [id number]) PT-Bed Mobility Assessment Rolling Type of Rolling Roll to Left Level of Assist Maximal Assistance Supine to Sit Supine to Sit Maximum Assistance 2 Person Assistance Head of Bed Elevated Scooting Scooting to Edge of Bed Minimal Assistance PT-Transfer Assessment Sit to and From Stand Sit to and from Stand Maximum Assistance 2 Person Assistance Equipment Transfer Assistive Device Gait Belt Transfers Transfer Destination Chair Transfer Technique Squat Pivot Comments Mobility Comments Pt able to assist with R UE and LE's, but unable to stand upright and put any weight on L LE. Performed squat pivot with max A x2, reaching with R UE to opposite chair arm. Gait Assessment Comments Gait Comments Gait not appropriate at this time. PT-Balance Assessment Sitting Balance and Reactions Static Sitting Balance Ability Fair Dynamic Sitting Balance Ability Poor Comments Other Balance Tests/Deviations/Treatment Pt required constant cues to : maintain balance in sitting. Able to hold for a few seconds with cueing but unable to maintain. Pt demo's significant forward head posture, with R cervical rotation and SB, able to correct with cueing but unable to maintain. M5 PT-IP Objective Assessments Start: 04/11/18 07:37 Freq: NEEDED Status: Active Protocol: Document 04/11/18 09:12 RS (Rec: 04/11/18 09:29 RS [id number]) Orientation Orientation/Cognition Level of Alertness Alert Language Function Ability Hard of Hearing Gross Range of Motion Lower Extremity ROM Assessment Within Functional Limits Strength Lower Extremity Strength Assessment Left Impaired Comments Strength Comments LLE not formally tested in full as pt needing to get to the C right away. Pt does have some voluntary movement in the LLE, grossly thought 2- /5. Muscle Tone Muscle Tone WNL Yes Muscle Tone Location Left Lower Extremity Type of Tone Hypotonicity Severity of Tone Moderate M6 PT-IP Treatment Start: 04/11/18 07:37 Freq: NEEDED Status: Active Protocol: Document 04/12/18 10:01 MDD (Rec: 04/12/18 12:04 MDD [id number]) Physical Therapy Treatment Education Education Provided Safety M7 PT-IP Assessment and Plan Start: 04/11/18 07:37 Freq: NEEDED Status: Active Protocol: Document 04/12/18 10:01 MDD (Rec: 04/12/18 12:04 MDD [id number]) PT Summary Assessment and Plan Potential Rehabilitation Potential Fair Status of Condition at Evaluation Evolving Summary Impairments Strength Balance Coordination Cognition Bed Mobility Transfers Gait Activity Tolerance Progress Towards Goals Slow Progress due to Medical Issues Assessment Summary Pt seems to have declined a bit this am. He reports he can move his L LE better today , but only able to extend knee slightly against gravity. No foot/ankle movement noted. Required max A x2 for squat pivot transfer today. Goals Bed Mobility Goal Minimal Assistance Transfer Goal Minimal Assistance Days to Meet Goals 5 Frequency of Treatment Frequency Of Treatment Twice a Day Treatment Plan Physical Therapy Treatment Plan Bed Mobility Training Transfer Training Gait Training Therapeutic Exercise Balance Retraining Discharge Planning Neuromuscular Re-ed Other Recommendations and Next Treatment sitting balance, standing Focus balance, transfers Recommendations To Nursing Amount of Assist Needed PT/OT Assist Only Mechanical Lift Discharge Recommendations PT Discharge Recommendations SNF Rehab Acute Rehab
--- NOTE | 2018-04-12 10:23 | OT.IP.TRT ---
Current Diagnoses Cerebral infarction, unspecified (04/10/18) Occupational Therapy Treatment Note M2 OT-IP Current Condition Start: 04/11/18 09:43 Freq: Status: Active Protocol: Document 04/11/18 15:36 [facility] (Rec: 04/11/18 15:44 [facility] [id number]) Occupational Therapy Current Condition Current Condition Evaluation Date 04/11/18 Treatment Diagnosis Left sided weakness Diagnosis Onset Date 04/10/18 M3 OT- IP Subjective and Pain Start: 04/11/18 09:43 Freq: Status: Active Protocol: Document 04/12/18 10:07 [facility] (Rec: 04/12/18 10:23 [facility] [id number]) OT- Subjective Occupational Therapy Visit Type Type Treatment Note Visit Start Time 09:37 Visit Stop Time 10:03 Total Visit Minutes 26 Occupational Therapy Visit Comments Patient Comments Pt just waking up and agreeable to get up to the recliner. OT Pain Assessment Pain When Pain Assessed At Rest Pain Present Pain Present Denied Pain OT-Instrumental Activities of Daily Living Home Safety Awareness Awareness of Need for Assistance at Home Decreased Awareness Ability to Problem Solve Emergency Unable to Problem Solve Situations Medication Management Medication Management Caregiver Administers Money Management Money Management Caregiver Provides Assistance Meal Preparation Meal Preparation Caregiver Provides Assist Seafood Process Worker Seafood Process Worker Caregiver Provides Assist Driving Driving Caregiver Provides Assist M6 OT- IP Functional Cognition Start: 04/11/18 09:43 Freq: Status: Active Protocol: Document 04/12/18 10:07 [facility] (Rec: 04/12/18 10:23 [facility] [id number]) Cognitive Factors Limiting Selfcare Function Cognitive Ability Level of Alertness Drowsy Patient Orientation Name Attention Span Ability Capable of Focused Attention Unable to Sustain Attention Ability to Follow Commands Able to Follow One Step Commands with Increased Time Able to Follow One Step Commands with Repetition Memory Description Short 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 Working Impaired Safety Awareness Underestimates Need for Assistance Problem Solving Ability Needs Assist to Identify Solutions M7 OT- IP Mobility and Balance Start: 04/11/18 09:43 Freq: Status: Active Protocol: Document 04/12/18 10:07 [facility] (Rec: 04/12/18 10:23 [facility] [id number]) OT- Bed Mobility Assessment Supine to Sit Supine to Sit Assist Moderate Assistance 2 Person Assistance Head of Bed Elevated OT-Transfer Assessment Transfers Transfer Ability Maximum Assistance 2 Person Assistance Technique Transfer Destination Chair Transfer Technique Squat Pivot Devices Transfer Assistive Devices Gait Belt Comments Mobility Comments Pt able to assist to scoot forward but needing MAX A to stabilize left hand on the bed . Pt unable to stand upright with 2 person assist and needing to place recliner to the right angled so pt able to reach armrest with right hand and MAX A x2 to help squat pivot pt over to the chair. OT- Balance Assessment Sitting Balance and Reactions Static Sitting Balance Ability Poor Dynamic Sitting Balance Ability Poor Standing Balance and Reactions Static Standing Balance Ability Poor Dynamic Standing Balance Ability Poor Comments Other Balance Tests/Deviations/Treatment Decreased sitting balance and : due decreased use of left arm today with strength and movement. Pt not able to sit up on his own today even after set-up on the edge of the bed . Pt tends to lean to the left and noted increased neck flexion laterally and to the right. Noted Increased flexed posture as well. M8 OT- IP Objective Assessments Start: 04/11/18 09:43 Freq: Status: Active Protocol: Document 04/11/18 09:43 [facility] (Rec: 04/11/18 10:19 [facility] [id number]) OT Gross Range of Motion Upper Extremity Range of Motion Assessment Left Impaired ROM Impairments WFL for PROM for LUE, AROM impaired due to weakness and unable to lift arm against gravity at this time. OT Strength Comments Strength Comments LUE 2-/5 to 3-/5 from proximal to distal. RUE intact and WFL OT-Muscle Tone Assessment Muscle Tone WNL No Muscle Tone Location Left Lower Extremity Type of Tone Hypotonicity Severity of Tone Moderate OT Sensation Assessment Comments Summary Comments Decreased for sensation light touch for localization for forearm to fingertips. Decreased proprioception for LUE and noted neglect as well. M9 OT- IP Assessment and Plan Start: 04/11/18 09:43 Freq: Status: Active Protocol: Document 04/12/18 10:07 [facility] (Rec: 04/12/18 10:23 [facility] [id number]) OT Summary Assessment and Plan Potential Rehabilitation Potential Fair Analytic Complexity at Evaluation Moderate Summary OT Impairments Range of Motion Strength Balance Coordination Tone Functional Cognition Functional Mobility Grooming Dressing Toileting Bathing Toilet Transfers Shower Transfers Progress Towards Goals Slow Progress due to Medical Issues Slow Progress due to Activity Tolerance Slow Progress due to Cognition Assessment Summary Noted overall decreased strength and movement noted for left side today, more neglect for left side as well. Pt will need extensive skilled rehab when medically stable. Goals Grooming Goal Minimal Assistance Dressing Goal Moderate Assistance Toileting Goal Moderate Assistance Bathing Goal Moderate Assistance Toilet Transfer Goal Moderate Assistance Shower Transfer Goal Moderate Assistance Patient/Caregiver Education Goal Caregiver Independent Assisting Patient Days to Meet Goals 7 Frequency of Treatment Frequency Of Treatment Once a Day Treatment Plan OT Treatment Plan ADL Training Functional Cognition Training Functional Mobility Neuromuscular Re-education Patient/Family Education Discharge Planning Other Treatment Recommendations and Next Incorporation of RUE for ADL's Treatment Focus . Discharge Recommendations OT Discharge Recommendations SNF Rehab Other Discharge Recommendations At this time pt would not have the activity tolerance to do acute inpt rehab at this time.
[2018-04-12 12:31] LABS: Hemoglobin A1C% w Est Avg Glu 5.7 % (4.0-6.0)
--- NOTE | 2018-04-12 13:32 | PT.IPTN ---
Current Diagnoses Cerebral infarction, unspecified (04/10/18) Physical Therapy Treatment Note M2 PT-IP Current Condition Start: 04/11/18 07:37 Freq: NEEDED Status: Active Protocol: Document 04/11/18 09:12 RS (Rec: 04/11/18 09:29 RS [id number]) Physical Therapy Current Condition Current Condition Evaluation Date 04/11/18 Treatment Diagnosis L hemiparesis, impaired mobility Onset Date 04/10/18 M3 PT-IP Subjective Start: 04/11/18 07:37 Freq: NEEDED Status: Active Protocol: Document 04/12/18 13:32 MDD (Rec: 04/12/18 15:23 [facility] [id number]) Subjective Physical Therapy Visit Type Type Treatment Note Visit Start Time 13:18 Visit Stop Time 13:32 Total Visit Minutes 14 Notes and son present in the room. 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 Therapy Pain Assessment Pain Present Pain Present Denied Pain M4 PT-IP Mobility and Gait Start: 04/11/18 07:37 Freq: NEEDED Status: Active Protocol: Document 04/12/18 13:32 MDD (Rec: 04/12/18 15:23 [facility] [id number]) PT-Bed Mobility Assessment Sit to Supine Sit to Supine Maximum Assistance 2 Person Assistance Scooting Scooting to Edge of Bed Minimal Assistance PT-Transfer Assessment Sit to and From Stand Sit to and from Stand Maximum Assistance 2 Person Assistance Equipment Transfer Assistive Device Gait Belt Transfers Transfer Destination Chair Transfer Technique Stand Pivot Transfer Ability Level of Assist Moderate Assistance Maximum Assistance 2 Person Assistance Comments Mobility Comments Pt requires max A for blocking L LE and positioning hips once standing. Gait Assessment Comments Gait Comments Gait not appropriate at this time. PT-Balance Assessment Sitting Balance and Reactions Static Sitting Balance Ability Fair Dynamic Sitting Balance Ability Poor Standing Balance and Reactions Static Standing Balance Ability Poor Dynamic Standing Balance Ability Poor Comments Other Balance Tests/Deviations/Treatment Pt only able to maintain : upright today by holding onto armrest with R UE. M5 PT-IP Objective Assessments Start: 04/11/18 07:37 Freq: NEEDED Status: Active Protocol: Document 04/11/18 09:12 RS (Rec: 04/11/18 09:29 RS [id number]) Orientation Orientation/Cognition Level of Alertness Alert Language Function Ability Hard of Hearing Gross Range of Motion Lower Extremity ROM Assessment Within Functional Limits Strength Lower Extremity Strength Assessment Left Impaired Comments Strength Comments LLE not formally tested in full as pt needing to get to the [facility] right away. Pt does have some voluntary movement in the LLE, grossly thought 2- /5. Muscle Tone Muscle Tone WNL Yes Muscle Tone Location Left Lower Extremity Type of Tone Hypotonicity Severity of Tone Moderate M6 PT-IP Treatment Start: 04/11/18 07:37 Freq: NEEDED Status: Active Protocol: Document 04/12/18 13:32 MDD (Rec: 04/12/18 15:23 MDD [id number]) Physical Therapy Treatment Education Education Provided Safety M7 PT-IP Assessment and Plan Start: 04/11/18 07:37 Freq: NEEDED Status: Active Protocol: Document 04/12/18 13:32 MDD (Rec: 04/12/18 15:23 MDD [id number]) PT Summary Assessment and Plan Potential Rehabilitation Potential Fair Status of Condition at Evaluation Evolving Summary Impairments Strength Balance Coordination Cognition Bed Mobility Transfers Gait Activity Tolerance Progress Towards Goals Slow Progress due to Medical Issues Assessment Summary Pt continues to be very limited in his ability to use L LE. Requires significant blocking and max A x2 for stand pivot transfer. Goals Bed Mobility Goal Minimal Assistance Transfer Goal Minimal Assistance Days to Meet Goals 5 Frequency of Treatment Frequency Of Treatment Twice a Day Treatment Plan Physical Therapy Treatment Plan Bed Mobility Training Transfer Training Gait Training Therapeutic Exercise Balance Retraining Discharge Planning Neuromuscular Re-ed Other Recommendations and Next Treatment sitting balance, standing Focus balance, transfers Recommendations To Nursing Amount of Assist Needed PT/OT Assist Only Mechanical Lift Discharge Recommendations PT Discharge Recommendations SNF Rehab Acute Rehab
--- NOTE | 2018-04-12 19:24 | PC.NURSE ---
Addendum entered by Stephanie Faria R.N. 04/12/18 22:14: Pt resting quietly at this time. Relatively uneventful evening. Denies discomfort. Call light w/in reach, Bed alarm on for pt safety. Continue w/plan of care. Original Note: Pt watching TV. Denies discomfort. HL RAC intact/patent. Left arm, hand, leg remain flaccid. Pt unable to move on own. Tele in place, NSR per ICU staff. Call light w/in reach, bed alarm on for pt safety.
[2018-04-12] MEDS: ASPIRIN EC 325 MG TABLET PO (20:37)
[2018-04-12] MEDS: ATORVASTATIN 20 MG TABLET 80 MG PO (20:37)
[2018-04-12] MEDS: DONEPEZIL 5 MG TABLET 10 MG PO (20:38)
[2018-04-12] MEDS: LISINOPRIL 10 MG TABLET PO (20:38)
[2018-04-12] MEDS: MULTIVITAMIN 1 TABLET 1 TAB PO (20:39)
[2018-04-12] MEDS: SENNOSIDES 8.6 MG TABLET 17.2 MG PO (20:39)
[2018-04-12] MEDS: LORATADINE 10 MG TABLET PO (20:39)
[2018-04-12] MEDS: SERTRALINE 50 MG TABLET PO (20:41)
--- NOTE | 2018-04-12 23:28 | PM.PN.1 ---
Subjective Date Patient Seen: 04/12/18 Time Patient Seen: 07:28 Interval history: FOLLOW-UP ON PATIENT WITH ACUTE RIGHT PONTINE STROKE WITH LEFT HEMIPARESIS REVIEW OF SYSTEMS PATIENT NOTES THE WEAKNESS HAS WORSENED SINCE YESTERDAY. ARM AND HAND ARE MORE FLACCID. NO CHEST PAIN OR SHORTNESS OF BREATH NO NAUSEA NO PALPITATIONS Exam Vital Signs (past 8 hours): - 04/12/18 16:50 04/12/18 19:35 Temperature 98.2 F 97.6 F Pulse Rate 72 78 Respiratory Rate 18 20 Blood Pressure 142/93 H 146/86 H Pulse Oximetry 95 92 Oxygen Delivery Method Room Air Oxygen Flow Rate 0 Narrative Exam Narrative: GENERAL APPEARANCE PATIENT IS AWAKE AND ALERT PATIENT IS STRESSED REGARDING THE WORSENING OF LIMB MOTION. AFFECT IS APPROPRIATE PSYCHIATRIC PATIENT IS ORIENTED TO SELF ONLY PLEASANTLY CONFUSED COOPERATIVE FOLLOWS COMMANDS SKIN NO RASHES OR LESIONS NON JAUNDICED TURGOR NORMAL RESPIRATORY CLEAR TO AUSCULTATION WITH NO WHEEZES NO CRACKLES CARDIOVASCULAR REGULAR RATE RHYTHM NO MURMUR RUBS OR GALLOPS PMI NONDISPLACED GASTROINTESTINAL SOFT NONTENDER POSITIVE BOWEL SOUNDS NO MASSES NO BRUITS NEUROLOGIC LEFT HEMIPARESIS IS NOTED AND CLOSER TO BEING FLACCID. PATIENT'S MILD DYSARTHRIA STILL NOTED Objective Labs Result Diagrams: 04/10/18 14:12 04/10/18 14:12 Labs: Laboratory Results - last 24 hr 04/12/18 12:10 Hemoglobin A1c 5.7 Assessment & Plan Plan: Assessment/Plan Narrative: 1. 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 Aspirin started 325 mg daily and Lipitor 80 mg daily Permissive hypertension provided first 24 hours since stroke symptoms first noted. . Note the lisinopril was discontinued initially and resumed in a.m. /. The initial CT of the head was negative for stroke. MRI reports acute right pontine stroke. Awaiting for placement to senior living facility which is likely to occur tomorrow 2. History of remote seizures and brain tumor with craniectomy Continued patient's home medications as tolerated. Time Spent With Patient Time with patient: 25 - 35 minutes (30 min) Quality VTE Deep Vein Thrombosis/Pulmonary Embolism Present on Admission: No
[2018-04-13] VITALS (9 sets, daily range): BP systolic 114–146; BP diastolic 81–87; PULSE 76–81; RESP 16–20; TEMP 36.6–37; O2SAT 93–96
[2018-04-13] MEDS: PANTOPRAZOLE 40 MG TABLET PO (05:48)
--- NOTE | 2018-04-13 08:14 | CM.DPC ---
DCP Cont: Continued work on this DCP throughout the day yesterday: Therapy team and Hospitalist agree inpt rehab would benefit this pt for expedited recovery from his confirmed (by MRI) acute stroke. Placed call to Maria M Acevedo w/the [facility]; had to . received msg back explaining that pt was 70% service connected, [facility] would not pay for [facility] or [facility] Inpt rehab but [facility] should be contacted. Discussed DC options w/pt, spouse and dtr at bedside. All agreeable to Inpt Rehab at [facility]. B/u choices are 1. [facility] 2. [facility] Faxed clinical packet to [facility] at F# [phone] Attn: Jamel Purvis (per Maria M Acevedo's guidance). Received asking for family to contact Santino Boyle at P# [phone] to get additional clarifying information. Then placed call to Santino at [facility], Inpt Rehab, this morning and asking for update. Following closely. SHEILA Barboza
[2018-04-13] MEDS: ASPIRIN EC 325 MG TABLET PO (09:32)
[2018-04-13] MEDS: ENOXAPARIN 40 MG/0.4 ML SYRINGE SUBCUT (09:32)
[2018-04-13] MEDS: DOCUSATE 100 MG CAPSULE PO ×2 (09:32→20:34)
[2018-04-13] MEDS: SODIUM CHLORIDE 0.9% FLUSH 10 ML IV ×2 (09:33→20:36)
--- NOTE | 2018-04-13 09:53 | ST.IPTN ---
Care Team Visit Care Team Role Provider Type Reanna Mcclure DO Emergency Provider Physician Address: [address] [place] [address], [id number] Manish Simons MD Admit Provider Physician Attending Provider Address: [address] [place] [address], [id number] MANAGER CARD Treatment Note MANAGER CARD Treatment Note Start: 04/12/18 13:55 Freq: Status: Active Protocol: Document 04/13/18 09:39 [facility] (Rec: 04/13/18 09:53 [facility] [id number]) Speech Pathology Treatment Note Session Time Total Visit Minutes 15 Setting Treatment Setting Acute Care Visit Type Note Type Treatment Note Subjective Identification Type Name Observations/Patient Presentation Patient sitting up in bed. No family members present. Patient oriented to self and place, but not date or time.He did not remember my name despite two previous visits. Rehab Expectation/Goals: Patient Goals Improve short term memory Objective Treatment Activities Reviewed dysarthria speaking strategies with patient. Patient read aloud multi- syllabic words using strategies with 100% intelligibility. Patient has met goal for using strategies to promote speech intelligibility. Mild dysarthria is resolved and speech is 100% intelligible. Left lingual deviation and mild left labial droop upon retraction persists, but does not appear to have an affect on speech or swallowing. In terms of cognition, patient presents with moderate impairments which affect his interpersonal relationships. He admits to having most difficulty with short term memory and states this is something he would like to work on. He has not held a job since his brain tumor in the 70s. He does not drive, and is not in charge of errands or finances for his family, though reports he does enjoy getting out of the house and joining his on grocery store outings. He watches tv and enjoys playing games. Assessment Patient Response to Treatment Good Impairments Identified Cognitive-Linguistic Skills Dementia Memory - Short Term Assessment of Improvement Dysarthria has resolved. No acute changes in cognition; however, patient does have cognitive impairments which he would like to receive therapy for. D/c from ST at this time ; however, recommend cognitive evaluation and treatment as appropriate upon d/c to SNF facility. Plan Therapy Recommendations Discharge from Speech Therapy
--- NOTE | 2018-04-13 10:25 | PT.IPTN ---
Current Diagnoses Cerebral infarction, unspecified (04/10/18) Physical Therapy Treatment Note M2 PT-IP Current Condition Start: 04/11/18 07:37 Freq: NEEDED Status: Active Protocol: Document 04/11/18 09:12 RS (Rec: 04/11/18 09:29 RS [id number]) Physical Therapy Current Condition Current Condition Evaluation Date 04/11/18 Treatment Diagnosis L hemiparesis, impaired mobility Onset Date 04/10/18 M3 PT-IP Subjective Start: 04/11/18 07:37 Freq: NEEDED Status: Active Protocol: Document 04/13/18 10:25 MDD (Rec: 04/13/18 12:30 MDD [id number]) Subjective Physical Therapy Visit Type Type Treatment Note Visit Start Time 09:30 Visit Stop Time 10:25 Total Visit Minutes 55 Notes Performed as co-treatment with OT today. Number of JEWELRY CUTTER Visits 0 Physical Therapy Visit Comments Patient Comments Pt very motivated to work with therapy today. Reports he has been trying to move his L arm and L leg frequently while in bed. Therapy Pain Assessment Pain When Pain Assessed At Rest Pain Present Pain Present Denied Pain M4 PT-IP Mobility and Gait Start: 04/11/18 07:37 Freq: NEEDED Status: Active Protocol: Document 04/13/18 10:25 MDD (Rec: 04/13/18 12:30 MDD [id number]) PT-Bed Mobility Assessment Rolling Type of Rolling Roll to Right Level of Assist Moderate Assistance Maximal Assistance 2 Person Assistance Supine to Sit Supine to Sit Moderate Assistance 2 Person Assistance Scooting Scooting to Edge of Bed Moderate Assistance PT-Transfer Assessment Sit to and From Stand Sit to and from Stand Moderate Assistance Maximum Assistance 2 Person Assistance Equipment Transfer Assistive Device Gait Belt Dre Walker Transfers Transfer Destination Chair Transfer Technique Stand Step Pivot Transfer Ability Level of Assist Moderate Assistance Maximum Assistance 2 Person Assistance Comments Mobility Comments Pt demonstrates improved ability to WB on L LE, but requires blocking at L knee to maintain standing and mod-max A x2 to stay upright. Pt unable to take steps today, max A x2 for transfers. Gait Assessment Comments Gait Comments Not appropriate today. PT-Balance Assessment Sitting Balance and Reactions Static Sitting Balance Ability Fair Dynamic Sitting Balance Ability Poor Standing Balance and Reactions Static Standing Balance Ability Poor Dynamic Standing Balance Ability Poor M5 PT-IP Objective Assessments Start: 04/11/18 07:37 Freq: NEEDED Status: Active Protocol: Document 04/11/18 09:12 RS (Rec: 04/11/18 09:29 RS [id number]) Orientation Orientation/Cognition Level of Alertness Alert Language Function Ability Hard of Hearing Gross Range of Motion Lower Extremity ROM Assessment Within Functional Limits Strength Lower Extremity Strength Assessment Left Impaired Comments Strength Comments LLE not formally tested in full as pt needing to get to the BSC right away. Pt does have some voluntary movement in the LLE, grossly thought 2- /5. Muscle Tone Muscle Tone WNL Yes Muscle Tone Location Left Lower Extremity Type of Tone Hypotonicity Severity of Tone Moderate M6 PT-IP Treatment Start: 04/11/18 07:37 Freq: NEEDED Status: Active Protocol: Document 04/13/18 10:25 MDD (Rec: 04/13/18 12:30 [facility] [id number]) Physical Therapy Treatment Education Education Provided Safety Other Treatments Other Treatment Performed Practiced bed mobility with blocking L knee in hooklying, performed 10 bridges with tactile cues at L gluteals. Pt also performed static sitting balance at EOB. Requires min A to avoid leaning L. Max A x2 for stand pivot transfer from recliner to commode. Pt requires pillows/blocking and min A for maintaining upright on the commode. M7 PT-IP Assessment and Plan Start: 04/11/18 07:37 Freq: NEEDED Status: Active Protocol: Document 04/13/18 10:25 MDD (Rec: 04/13/18 12:30 [facility] [id number]) PT Summary Assessment and Plan Potential Rehabilitation Potential Fair Status of Condition at Evaluation Evolving Summary Impairments ROM Strength Coordination Cognition Bed Mobility Transfers Gait Activity Tolerance Progress Towards Goals Slow Progress due to Medical Issues Assessment Summary Pt continues to be very limited in his ability to use L LE. Requires significant blocking and max A x2 for stand pivot transfer. Goals Bed Mobility Goal Minimal Assistance Transfer Goal Minimal Assistance Days to Meet Goals 5 Frequency of Treatment Frequency Of Treatment Twice a Day Treatment Plan Physical Therapy Treatment Plan Bed Mobility Training Transfer Training Gait Training Therapeutic Exercise Balance Retraining Discharge Planning Neuromuscular Re-ed Other Recommendations and Next Treatment sitting balance, standing Focus balance, transfers Recommendations To Nursing Amount of Assist Needed PT/OT Assist Only Mechanical Lift Discharge Recommendations PT Discharge Recommendations SNF Rehab Acute Rehab
--- NOTE | 2018-04-13 15:39 | PC.NURSE ---
Pt up to chair with PT and OT. Nursing to use reid lift only. Pt denies pain. Arrangements continue with facilities planner for rehab services. Spouse present most of day assisting with cares.
--- NOTE | 2018-04-13 15:41 | PT.IPTN ---
Current Diagnoses Cerebral infarction, unspecified (04/10/18) Physical Therapy Treatment Note M2 PT-IP Current Condition Start: 04/11/18 07:37 Freq: NEEDED Status: Active Protocol: Document 04/11/18 09:12 RS (Rec: 04/11/18 09:29 RS [id number]) Physical Therapy Current Condition Current Condition Evaluation Date 04/11/18 Treatment Diagnosis L hemiparesis, impaired mobility Onset Date 04/10/18 M3 PT-IP Subjective Start: 04/11/18 07:37 Freq: NEEDED Status: Active Protocol: Document 04/13/18 15:34 GGD (Rec: 04/13/18 15:41 GGD [email or web address]) Subjective Physical Therapy Visit Type Type Treatment Note Visit Start Time 15:05 Visit Stop Time 15:20 Total Visit Minutes 15 Number of MANAGER CRISIS Visits 1 Physical Therapy Visit Comments Patient Comments Pt willing to try to sit on EOB. M4 PT-IP Mobility and Gait Start: 04/11/18 07:37 Freq: NEEDED Status: Active Protocol: Document 04/13/18 15:34 GGD (Rec: 04/13/18 15:41 GGD [email or web address]) PT-Bed Mobility Assessment Rolling Type of Rolling Roll to Right Level of Assist Minimal Assistance 1 Person Assistance Supine to Sit Supine to Sit Maximum Assistance 1 Person Assistance Bedrails Sit to Supine Sit to Supine Moderate Assistance 2 Person Assistance Bedrails Scooting Scooting to Edge of Bed Minimal Assistance Moderate Assistance Scooting Up and Down in Bed Maximum Assistance PT-Transfer Assessment Comments Mobility Comments Pt needed L LE support for bridging for scooting to EOB. CGA to Mod A for sitting on EOB. Sitting on EOB x 2 min before return to bed. Pt need to use bed ibrahim. M5 PT-IP Objective Assessments Start: 04/11/18 07:37 Freq: NEEDED Status: Active Protocol: Document 04/11/18 09:12 RS (Rec: 04/11/18 09:29 RS [id number]) Orientation Orientation/Cognition Level of Alertness Alert Language Function Ability Hard of Hearing Gross Range of Motion Lower Extremity ROM Assessment Within Functional Limits Strength Lower Extremity Strength Assessment Left Impaired Comments Strength Comments LLE not formally tested in full as pt needing to get to the BSC right away. Pt does have some voluntary movement in the LLE, grossly thought 2- /5. Muscle Tone Muscle Tone WNL Yes Muscle Tone Location Left Lower Extremity Type of Tone Hypotonicity Severity of Tone Moderate M6 PT-IP Treatment Start: 04/11/18 07:37 Freq: NEEDED Status: Active Protocol: Document 04/13/18 15:34 GGD (Rec: 04/13/18 15:41 GGD [email or web address]) Physical Therapy Treatment Education Education Provided Safety Other Treatments Other Treatment Performed bridging in bed with blocking L knee for bed mobility. M7 PT-IP Assessment and Plan Start: 04/11/18 07:37 Freq: NEEDED Status: Active Protocol: Document 04/13/18 15:34 GGD (Rec: 04/13/18 15:41 GGD [email or web address]) PT Summary Assessment and Plan Summary Assessment Summary Pt improved with rolling and bridging in bed. He was a max a for sit to stand. He need mod a to CGA for EOB sitting. Frequency of Treatment Frequency Of Treatment Twice a Day Treatment Plan Other Recommendations and Next Treatment sitting balance, standing Focus balance, transfers Recommendations To Nursing Amount of Assist Needed PT/OT Assist Only Mechanical Lift Discharge Recommendations PT Discharge Recommendations SNF Rehab Acute Rehab
--- NOTE | 2018-04-13 15:41 | OT.IP.TRT ---
Current Diagnoses Cerebral infarction, unspecified (04/10/18) Occupational Therapy Treatment Note M2 OT-IP Current Condition Start: 04/11/18 09:43 Freq: Status: Active Protocol: Document 04/11/18 15:36 [facility] (Rec: 04/11/18 15:44 [facility] [id number]) Occupational Therapy Current Condition Current Condition Evaluation Date 04/11/18 Treatment Diagnosis Left sided weakness Diagnosis Onset Date 04/10/18 M3 OT- IP Subjective and Pain Start: 04/11/18 09:43 Freq: Status: Active Protocol: Document 04/13/18 15:27 [facility] (Rec: 04/13/18 15:41 [facility] [id number]) OT- Subjective Occupational Therapy Visit Type Type Treatment Note Visit Start Time 09:30 Visit Stop Time 10:25 Total Visit Minutes 70 Notes Able to see pt again with BIRD KEEPER 1210 to 1225PM to assess bed mobility and assist for toileting needs. Occupational Therapy Visit Comments Patient Comments Pt agreeable to try to get up for BSC. OT Pain Assessment Pain When Pain Assessed At Rest Pain Present Pain Present Denied Pain M4 OT- IP ADL's Start: 04/11/18 09:43 Freq: Status: Active Protocol: Document 04/13/18 15:27 [facility] (Rec: 04/13/18 15:41 [facility] [id number]) OT ADL-Dressing General Eval Lower Body Dressing Ability Maximum Assistance Areas Needing Assistance Retrieving/Set-up of Clothing Underpants/Brief Socks Comments OT Dressing Comments Due to poor control and decreased functional use of left arm, pt needing MAXA for LB dressing needs at this time . OT ADL-Toileting General Evaluation Toileting Ability Total Assistance Areas Needing Assistance Manage Clothing Perform Perineal Hygiene Devices Toileting Assistive Devices Commode Comments OT Toileting Comments MAX A x 2 to stand/squat pivot to the BSC and then needing sling for support due to poor trunk control. In PM decided best to have pt in bed with bed ibrahim due to more support and able to relax more to have a bowel movement . M5 OT- IP IADL's Start: 04/11/18 09:43 Freq: Status: Active Protocol: Document 04/11/18 09:43 [facility] (Rec: 04/11/18 10:19 [facility] [email or web address]) OT-Instrumental Activities of Daily Living Home Safety Awareness Awareness of Need for Assistance at Home Decreased Awareness Ability to Problem Solve Emergency Unable to Problem Solve Situations Medication Management Medication Management Caregiver Administers Money Management Money Management Caregiver Provides Assistance Meal Preparation Meal Preparation Caregiver Provides Assist Workforce Development Vice President Workforce Development Vice President Caregiver Provides Assist Driving Driving Caregiver Provides Assist M6 OT- IP Functional Cognition Start: 04/11/18 09:43 Freq: Status: Active Protocol: Document 04/13/18 15:27 [facility] (Rec: 04/13/18 15:41 [facility] [id number]) Cognitive Factors Limiting Selfcare Function Cognitive Ability Level of Alertness Alert Patient Orientation Name Attention Span Ability Capable of Focused Attention Unable to Sustain Attention Ability to Follow Commands Able to Follow One Step Commands with Increased Time Able to Follow One Step Commands with Repetition Memory Description Short Term Impaired Senior Living Impaired Working Impaired Safety Awareness Underestimates Need for Assistance Problem Solving Ability Needs Assist to Identify Solutions OT- Vision and Hearing OT- Hearing Assessment OT- Hearing Assessment Use of Hearing Aids M7 OT- IP Mobility and Balance Start: 04/11/18 09:43 Freq: Status: Active Protocol: Document 04/13/18 15:27 [facility] (Rec: 04/13/18 15:41 [facility] [id number]) OT- Bed Mobility Assessment Rolling Type of Rolling Roll to Left Level of Assistance Minimal Assistance Supine to Sit Supine to Sit Assist Maximum Assistance 2 Person Assistance Bedrails Sit to Supine Sit to Supine Assist Maximum Assistance 2 Person Assistance OT-Transfer Assessment Transfers Transfer Ability Maximum Assistance 2 Person Assistance Technique Transfer Destination Chair Transfer Technique Squat Pivot Devices Transfer Assistive Devices Gait Belt Comments Mobility Comments Pt able to stand with MAX A X 2 with hemiwalker and able to pviot to BSC , unable to take a step. Pt doing better with bridging of hip in PM versus AM to help get brief,bed ibrahim, and protective sheets in place . OT- Balance Assessment Sitting Balance and Reactions Static Sitting Balance Ability Fair Dynamic Sitting Balance Ability Poor Standing Balance and Reactions Static Standing Balance Ability Poor Dynamic Standing Balance Ability Poor M8 OT- IP Objective Assessments Start: 04/11/18 09:43 Freq: Status: Active Protocol: Document 04/11/18 09:43 [facility] (Rec: 04/11/18 10:19 [facility] [id number]) OT Gross Range of Motion Upper Extremity Range of Motion Assessment Left Impaired ROM Impairments WFL for PROM for LUE, AROM impaired due to weakness and unable to lift arm against gravity at this time. OT Strength Comments Strength Comments LUE trace movements. RUE intact and WFL OT-Muscle Tone Assessment Muscle Tone WNL No Muscle Tone Location Left Lower Extremity Type of Tone Hypotonicity Severity of Tone Moderate OT Sensation Assessment Comments Summary Comments Decreased for sensation light touch for localization for forearm to fingertips. Decreased proprioception for LUE and noted neglect as well. M9 OT- IP Assessment and Plan Start: 04/11/18 09:43 Freq: Status: Active Protocol: Document 04/13/18 15:27 [facility] (Rec: 04/13/18 15:41 [facility] [id number]) OT Summary Assessment and Plan Goals Days to Meet Goals 7 Frequency of Treatment Frequency Of Treatment Once a Day Treatment Plan OT Treatment Plan ADL Training Functional Cognition Training Functional Mobility Neuromuscular Re-education Patient/Family Education Discharge Planning Other Treatment Recommendations and Next Incorporation of RUE for ADL's Treatment Focus . Discharge Recommendations OT Discharge Recommendations SNF Rehab
--- NOTE | 2018-04-13 15:49 | CM.DPC ---
DCP Cont: Updated DCP: Pt no longer meets criteria for Inpt Rehab at [facility], he can no longer tolerate the three daily therapy hours. Went over this w/pt's spouse and dtr, also w/Dr Simons, to make sure all on the same page. Pt's spouse agreeable to SNF rather than Inpt Rehab. They prefer [facility] in [place], P# [phone] (admissions, [facility]). [facility] is the b/u choice. TC placed to Deborah at [facility]; discussed referral and requested that it administrative assistant Vinita nance clinical packet for her review. Then placed call to [facility] Maria M Acevedo P# [phone]; explained above. Maria M sees Medicare A on pt's file and encourages another conversation w/spouse about Medicare A coverage at SNF vs [facility] coverage. Maria M further explains that IF pt has Medicare A and good secondary coverage that can pay for any co-pay, pt could DC to any SNF. IF he does not have Medicare A and/or does not have good secondary coverage he would benefit from a [place] contract paying for [facility] or [facility]. Then spoke w/ Santino at the [facility] inpt Rehab unit P# [phone]; clinically, pt had been accepted there. Updated w/pt's current limitations. Santino hopes to stay involved w/pt's POC in case he can qualify for transition from SNF to Inpt Rehab once he has improved functionally. F/U needed w/pt's spouse Yaima; does pt have Medicare A ? If yes, does she still want [facility] or would she prefer a closer SNF ? Follow closely. PASSR still needed. SHEILA Barboza
[2018-04-13 18:48] LABS: Bacteria Urine None Seen; Culture Indicated Urine Cult Not Indicated; RBC Urine None Seen (0-5/HPF); WBC Urine 1-5/HPF (0-5/HPF)
--- NOTE | 2018-04-13 20:22 | PM.PN.1 ---
Subjective Date Patient Seen: 04/13/18 Time Patient Seen: 06:24 Interval history: FOLLOW-UP ON PATIENT WITH NEW RIGHT ACUTE PONTINE STROKE. PATIENT WITH A LEFT HEMIPARESIS THAT EVOLVED FROM A FUMBLING TO MORE OF A PARALYSIS. NOTE WHEN NOT BE UNUSUAL EVENT WITH THIS CLEAR TYPE STROKE. APPLICATION PACKAGING SPECIALIST ARE WORKING OUT THE DETAILS FOR PATIENT TO BE ALLOWED DISCHARGE TO A DETENTION FACILITY CONTRACTED WITH THE [facility]. PATIENT IS 100% SERVICE-CONNECTED. Exam Vital Signs (past 8 hours): - 04/13/18 15:00 04/13/18 16:27 Temperature 97.8 F Pulse Rate 80 Respiratory Rate 16 Blood Pressure 138/87 Pulse Oximetry 95 95 Oxygen Delivery Method Room Air Oxygen Flow Rate 0 Narrative Exam Narrative: GENERAL APPEARANCE PATIENT IS AWAKE AND ALERT PATIENT IS STRESSED REGARDING THE WORSENING OF LIMB MOTION. AFFECT IS APPROPRIATE PSYCHIATRIC PATIENT IS ORIENTED TO SELF ONLY PLEASANTLY CONFUSED COOPERATIVE FOLLOWS COMMANDS SKIN NO RASHES OR LESIONS NON JAUNDICED TURGOR NORMAL RESPIRATORY CLEAR TO AUSCULTATION WITH NO WHEEZES NO CRACKLES CARDIOVASCULAR REGULAR RATE RHYTHM NO MURMUR RUBS OR GALLOPS PMI NONDISPLACED GASTROINTESTINAL SOFT NONTENDER POSITIVE BOWEL SOUNDS NO MASSES NO BRUITS NEUROLOGIC LEFT HEMIPARESIS IS NOTED AND CLOSER TO BEING FLACCID. PATIENT'S MILD DYSARTHRIA STILL NOTED Objective Labs Result Diagrams: 04/10/18 14:12 04/10/18 14:12 Labs: Laboratory Results - last 24 hr 04/13/18 18:20 Urine RBC None seen Urine WBC 1-5/hpf Urine Bacteria None seen Ur Culture Indicated? Cult not indicated Micro UA Comment Not Reportable Assessment & Plan Plan: Assessment/Plan Narrative: 1. 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 Aspirin started 325 mg daily and Lipitor 80 mg daily Permissive hypertension provided first 24 hours since stroke symptoms first noted. . Note the lisinopril discontinued initially and THEN resumed in a.m. 9/4. The initial CT of the head was negative for stroke. MRI reports acute right pontine stroke. Awaiting for placement to group home facility which is likely to occur tomorrow 2. History of remote seizures and brain tumor with craniectomy Continue patient's home medications as tolerated. Time Spent With Patient Time with patient: 25 - 35 minutes (25 MIN) Quality VTE Deep Vein Thrombosis/Pulmonary Embolism Present on Admission: No
[2018-04-13] MEDS: LORATADINE 10 MG TABLET PO (20:34)
[2018-04-13] MEDS: MULTIVITAMIN 1 TABLET 1 TAB PO (20:34)
[2018-04-13] MEDS: SENNOSIDES 8.6 MG TABLET 17.2 MG PO (20:34)
[2018-04-13] MEDS: LISINOPRIL 10 MG TABLET PO (20:34)
[2018-04-13] MEDS: ATORVASTATIN 20 MG TABLET 80 MG PO (20:36)
[2018-04-13] MEDS: SERTRALINE 50 MG TABLET PO (20:36)
[2018-04-13] MEDS: DONEPEZIL 5 MG TABLET 10 MG PO (20:36)
[2018-04-14] VITALS (9 sets, daily range): BP systolic 137–150; BP diastolic 79–94; PULSE 73–84; RESP 14–20; TEMP 36.5–37.3; O2SAT 92–95
[2018-04-14] MEDS: PANTOPRAZOLE 40 MG TABLET PO (06:19)
[2018-04-14] MEDS: DOCUSATE 100 MG CAPSULE PO ×2 (08:42→20:24)
[2018-04-14] MEDS: ENOXAPARIN 40 MG/0.4 ML SYRINGE SUBCUT (08:42)
[2018-04-14] MEDS: ASPIRIN EC 325 MG TABLET PO (08:42)
--- NOTE | 2018-04-14 10:40 | PM.PN.1 ---
Subjective Interval history: The bed new problems no new events in the past 24 hr patient denies chest pain shortness of breath palpitations headache. He still has inability to use left side of his body Exam Vital Signs (past 8 hours): - 04/14/18 04:15 04/14/18 08:00 04/14/18 09:54 Temperature 99.1 F 98.4 F Pulse Rate 73 Respiratory Rate 18 16 Blood Pressure 139/92 H Pulse Oximetry 93 93 Oxygen Delivery Method Room Air Oxygen Flow Rate 0 Narrative Exam Narrative: General NAD HEENT normocephalic atraumatic extraocular movement is intact pupils equal round reactive fundi not visualized oropharynx is clear Neck is supple without thyromegaly bruits or jugular venous distension Heart regular rhythm S1-S2 was normal there are no listhesis rubs murmurs gallops present Lungs Clear to auscultation Abdomen benign Extremities no clubbing demons cyanosis pulses 2+ equal active Neurologic left hemiparesis left facial droop Skin no acute changes Objective Labs Result Diagrams: 04/10/18 14:12 04/10/18 14:12 Labs: Laboratory Results - last 24 hr 04/13/18 18:20 Urine RBC None seen Urine WBC 1-5/hpf Urine Bacteria None seen Ur Culture Indicated? Cult not indicated Micro UA Comment Not Reportable Assessment & Plan Plan: Assessment/Plan Narrative: 1. 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 Aspirin started 325 mg daily and Lipitor 80 mg daily Permissive hypertension provided first 24 hours since stroke symptoms first noted. . Note the lisinopril discontinued initially and THEN resumed in a.m. /4. The initial CT of the head was negative for stroke. MRI reports acute right pontine stroke. Awaiting for placement to long term facility 2. History of remote seizures and brain tumor with craniectomy Continue patient's home medications as tolerated. Quality VTE Deep Vein Thrombosis/Pulmonary Embolism Present on Admission: No
--- NOTE | 2018-04-14 12:15 | PT.IPTN ---
Current Diagnoses Cerebral infarction, unspecified (04/10/18) Physical Therapy Treatment Note M2 PT-IP Current Condition Start: 04/11/18 07:37 Freq: NEEDED Status: Active Protocol: Document 04/11/18 09:12 RS (Rec: 04/11/18 09:29 RS [id number]) Physical Therapy Current Condition Current Condition Evaluation Date 04/11/18 Treatment Diagnosis L hemiparesis, impaired mobility Onset Date 04/10/18 M3 PT-IP Subjective Start: 04/11/18 07:37 Freq: NEEDED Status: Active Protocol: Document 04/14/18 12:15 GGD (Rec: 04/14/18 12:53 GGD [email or web address]) Subjective Physical Therapy Visit Type Type Treatment Note Visit Start Time 11:45 Visit Stop Time 12:15 Total Visit Minutes 30 Number of LIQUOR GALLERY OPERATOR Visits 2 Physical Therapy Visit Comments Patient Comments Pt states he needs to have a BM. M4 PT-IP Mobility and Gait Start: 04/11/18 07:37 Freq: NEEDED Status: Active Protocol: Document 04/14/18 12:15 GGD (Rec: 04/14/18 12:53 GGD [id number]) PT-Bed Mobility Assessment Rolling Type of Rolling Roll to Right Level of Assist Moderate Assistance 1 Person Assistance Supine to Sit Supine to Sit Maximum Assistance 2 Person Assistance Bedrails Scooting Scooting to Edge of Bed Minimal Assistance PT-Transfer Assessment Sit to and From Stand Sit to and from Stand Moderate Assistance 2 Person Assistance Equipment Transfer Assistive Device Gait Belt Transfers Transfer Destination Chair Bedside Commode Transfer Technique Stand Step Pivot Transfer Ability Level of Assist Moderate Assistance 2 Person Assistance Comments Mobility Comments Pt needed blocking of L LE with bridging, standing and transfers. He was Min to [facility] for sitting balance. M5 PT-IP Objective Assessments Start: 04/11/18 07:37 Freq: NEEDED Status: Active Protocol: Document 04/11/18 09:12 RS (Rec: 04/11/18 09:29 RS [id number]) Orientation Orientation/Cognition Level of Alertness Alert Language Function Ability Hard of Hearing Gross Range of Motion Lower Extremity ROM Assessment Within Functional Limits Strength Lower Extremity Strength Assessment Left Impaired Comments Strength Comments LLE not formally tested in full as pt needing to get to the BSC right away. Pt does have some voluntary movement in the LLE, grossly thought 2- /5. Muscle Tone Muscle Tone WNL Yes Muscle Tone Location Left Lower Extremity Type of Tone Hypotonicity Severity of Tone Moderate M6 PT-IP Treatment Start: 04/11/18 07:37 Freq: NEEDED Status: Active Protocol: Document 04/14/18 12:15 GGD (Rec: 04/14/18 12:53 GGD [email or web address]) Physical Therapy Treatment Exercises Exercises Quad Sets Seated Knee Flexion/Extension Other Treatments Other Treatment Performed Standing small knee bends with mod a and cues. M7 PT-IP Assessment and Plan Start: 04/11/18 07:37 Freq: NEEDED Status: Active Protocol: Document 04/14/18 12:15 GGD (Rec: 04/14/18 12:53 GGD [email or web address]) PT Summary Assessment and Plan Summary Assessment Summary Pt improving with sitting balance. He needs mod to max cues for mobility. He did improve with standing balance. He was able to transfer with 2 person assist. Frequency of Treatment Frequency Of Treatment Twice a Day Treatment Plan Other Recommendations and Next Treatment sitting balance, standing Focus balance, transfers Recommendations To Nursing Amount of Assist Needed PT/OT Assist Only Mechanical Lift Discharge Recommendations PT Discharge Recommendations SNF Rehab
--- NOTE | 2018-04-14 12:30 | OT.IP.TRT ---
Current Diagnoses Cerebral infarction, unspecified (04/10/18) Occupational Therapy Treatment Note M2 OT-IP Current Condition Start: 04/11/18 09:43 Freq: Status: Active Protocol: Document 04/11/18 15:36 [facility] (Rec: 04/11/18 15:44 [facility] [id number]) Occupational Therapy Current Condition Current Condition Evaluation Date 04/11/18 Treatment Diagnosis Left sided weakness Diagnosis Onset Date 04/10/18 M3 OT- IP Subjective and Pain Start: 04/11/18 09:43 Freq: Status: Active Protocol: Document 04/14/18 12:21 [facility] (Rec: 04/14/18 12:30 [facility] [id number]) OT- Subjective Occupational Therapy Visit Type Type Treatment Note Visit Start Time 12:15 Visit Stop Time 12:45 Total Visit Minutes 30 Occupational Therapy Visit Comments Patient Comments Pt needing to use the BSC. OT Pain Assessment Pain When Pain Assessed At Rest Pain Present Pain Present Denied Pain M4 OT- IP ADL's Start: 04/11/18 09:43 Freq: Status: Active Protocol: Document 04/14/18 12:21 [facility] (Rec: 04/14/18 12:30 [facility] [id number]) OT ADL-Dressing General Eval Lower Body Dressing Ability Maximum Assistance Areas Needing Assistance Retrieving/Set-up of Clothing Socks Comments OT Dressing Comments Due to poor control and decreased functional use of left arm, pt needing MAXa for LB dressing needs at this time . OT ADL-Toileting General Evaluation Toileting Ability Total Assistance Areas Needing Assistance Manage Clothing Perform Perineal Hygiene Devices Toileting Assistive Devices Commode Comments OT Toileting Comments MAX A x 2 to stand/squat pivot to the BSC and also with use of sling for LUE. MAX A X2 to transfer from [facility] to recliner as well. Third person needed for safety and to hygiene after bowel movement. M5 OT- IP IADL's Start: 04/11/18 09:43 Freq: Status: Active Protocol: Document 04/11/18 09:43 [facility] (Rec: 04/11/18 10:19 [facility] [id number]) OT-Instrumental Activities of Daily Living Home Safety Awareness Awareness of Need for Assistance at Home Decreased Awareness Ability to Problem Solve Emergency Unable to Problem Solve Situations Medication Management Medication Management Caregiver Administers Money Management Money Management Caregiver Provides Assistance Meal Preparation Meal Preparation Caregiver Provides Assist Industrial Sales Engineer Industrial Sales Engineer Caregiver Provides Assist Driving Driving Caregiver Provides Assist M6 OT- IP Functional Cognition Start: 04/11/18 09:43 Freq: Status: Active Protocol: Document 04/14/18 12:21 [facility] (Rec: 04/14/18 12:30 [facility] [id number]) Cognitive Factors Limiting Selfcare Function Cognitive Ability Level of Alertness Alert Patient Orientation Name Attention Span Ability Capable of Focused Attention Capable of Sustained Attention Ability to Follow Commands Able to Follow One Step Commands with Increased Time Able to Follow One Step Commands with Repetition Memory Description Short Term 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 Impaired Working Impaired Safety Awareness Underestimates Need for Assistance Problem Solving Ability Needs Assist to Identify Solutions M7 OT- IP Mobility and Balance Start: 04/11/18 09:43 Freq: Status: Active Protocol: Document 04/14/18 12:21 [facility] (Rec: 04/14/18 12:30 [facility] [id number]) OT- Bed Mobility Assessment Rolling Type of Rolling Roll to Left Level of Assistance Minimal Assistance Supine to Sit Supine to Sit Assist Maximum Assistance 2 Person Assistance Bedrails Sit to Supine Sit to Supine Assist Maximum Assistance 2 Person Assistance OT-Transfer Assessment Sit to and From Stand Sit to and from Stand Maximum Assistance 2 Person Assistance Transfers Transfer Ability Maximum Assistance 2 Person Assistance Technique Transfer Destination Bedside Commode Chair Transfer Technique Stand Pivot Devices Transfer Assistive Devices Gait Belt Comments Mobility Comments Noted increased control for LLE but still needing to block LLE to transfer to [facility] and recliner. Today after set-up , pt able to sit to edge of bed with SBA noted increased tone for LUE -triceps during weight bearing. However when pt trying to move needing LAVINIA to maintain balance. Pt continues to laterally lean to the right. OT- Balance Assessment Sitting Balance and Reactions Static Sitting Balance Ability Fair Dynamic Sitting Balance Ability Poor Standing Balance and Reactions Static Standing Balance Ability Poor Dynamic Standing Balance Ability Poor M8 OT- IP Objective Assessments Start: 04/11/18 09:43 Freq: Status: Active Protocol: Document 04/11/18 09:43 [facility] (Rec: 04/11/18 10:19 [facility] [id number]) OT Gross Range of Motion Upper Extremity Range of Motion Assessment Left Impaired ROM Impairments WFL for PROM for LUE, AROM impaired due to weakness and unable to lift arm against gravity at this time. OT Strength Comments Strength Comments LUE 2-/5 to 3-/5 from proximal to distal. RUE intact and WFL OT-Muscle Tone Assessment Muscle Tone WNL No Muscle Tone Location Left Lower Extremity Type of Tone Hypotonicity Severity of Tone Moderate OT Sensation Assessment Comments Summary Comments Decreased for sensation light touch for localization for forearm to fingertips. Decreased proprioception for LUE and noted neglect as well. M9 OT- IP Assessment and Plan Start: 04/11/18 09:43 Freq: Status: Active Protocol: Document 04/14/18 12:21 [facility] (Rec: 04/14/18 12:30 [facility] [id number]) OT Summary Assessment and Plan Potential Rehabilitation Potential Good Analytic Complexity at Evaluation Moderate Summary OT Impairments Range of Motion Strength Balance Coordination Tone Functional Cognition Functional Mobility Grooming Dressing Toileting Bathing Toilet Transfers Shower Transfers Progress Towards Goals Slow Progress due to Medical Issues Slow Progress due to Activity Tolerance Slow Progress due to Cognition Assessment Summary Noted increased strength for L side and increased trunk control but still needing extensive assist for all ADl and functional mobility needs. Still recommend SNF. Goals Days to Meet Goals 7 Frequency of Treatment Frequency Of Treatment Once a Day Treatment Plan OT Treatment Plan ADL Training Functional Cognition Training Functional Mobility Neuromuscular Re-education Patient/Family Education Discharge Planning Other Treatment Recommendations and Next Incorporation of RUE for ADL's Treatment Focus . Discharge Recommendations OT Discharge Recommendations SNF Rehab
--- NOTE | 2018-04-14 13:00 | CM.DPC ---
Addendum entered by SHEILA Avitia 04/14/18 15:58: Called from [facility]: they are unable to meet patient's needs. Called Minerva Flannery: Still reviewing. Spoke with spouse/Yaima: updated on SNF. Requested they review Medicare Choice list for other options. If patients needs become barrier for SNFs, possible LTAC? Family would like to be closer. [facility] CATHY/Natali [phone] called: they would like to be involved in discharge planning. Natali stated his job was to get nd patients moved to the nd hospital but can also assist with placement needs if needed. Original Note: SNF cont: Admissions was able to verify patient does have Medicare part A. Met with spouse and patient: discharged Medicare SNF guidelines and provided Medicare choice list. [facility]. When SW returned to office spouse was with daughter/Juan Alberto: they changed their mind and only want facilities in [place] 1- [facility] 2-[facility]. CATHY/[place] faxed referral to both faciliies. SW called [facility]/Nicole ([phone])who verified they received referral and will review for acceptance. Plan: Patient is stable to discharge to SNF if CM is able to secure placement.
--- NOTE | 2018-04-14 15:00 | PT.IPTN ---
Current Diagnoses Cerebral infarction, unspecified (04/10/18) Physical Therapy Treatment Note M2 PT-IP Current Condition Start: 04/11/18 07:37 Freq: NEEDED Status: Active Protocol: Document 04/11/18 09:12 [facility] (Rec: 04/11/18 09:29 [facility] [id number]) Physical Therapy Current Condition Current Condition Evaluation Date 04/11/18 Treatment Diagnosis L hemiparesis, impaired mobility Onset Date 04/10/18 M3 PT-IP Subjective Start: 04/11/18 07:37 Freq: NEEDED Status: Active Protocol: Document 04/14/18 15:00 [facility] (Rec: 04/14/18 15:59 [facility] [email or web address]) Subjective Physical Therapy Visit Type Type Treatment Note Visit Start Time 14:30 Visit Stop Time 15:00 Total Visit Minutes 30 Number of VISION IMPAIRED TEACHER Visits 3 Physical Therapy Visit Comments Patient Comments Pt ready to take a nap. M4 PT-IP Mobility and Gait Start: 04/11/18 07:37 Freq: NEEDED Status: Active Protocol: Document 04/14/18 15:00 [facility] (Rec: 04/14/18 15:59 [facility] [id number]) PT-Bed Mobility Assessment Sit to Supine Sit to Supine Moderate Assistance 2 Person Assistance Bedrails Scooting Scooting to Edge of Bed Minimal Assistance PT-Transfer Assessment Sit to and From Stand Sit to and from Stand Moderate Assistance Maximum Assistance 2 Person Assistance Equipment Transfer Assistive Device Gait Belt Transfers Transfer Destination Bed Transfer Technique Stand Step Pivot Transfer Ability Level of Assist Moderate Assistance 2 Person Assistance Comments Mobility Comments Pt needs blocking of L LE with sit to stand. Attempted weight shifting in standing. M5 PT-IP Objective Assessments Start: 04/11/18 07:37 Freq: NEEDED Status: Active Protocol: Document 04/11/18 09:12 [facility] (Rec: 04/11/18 09:29 [facility] [id number]) Orientation Orientation/Cognition Level of Alertness Alert Language Function Ability Hard of Hearing Gross Range of Motion Lower Extremity ROM Assessment Within Functional Limits Strength Lower Extremity Strength Assessment Left Impaired Comments Strength Comments LLE not formally tested in full as pt needing to get to the BSC right away. Pt does have some voluntary movement in the LLE, grossly thought 2- /5. Muscle Tone Muscle Tone WNL Yes Muscle Tone Location Left Lower Extremity Type of Tone Hypotonicity Severity of Tone Moderate M6 PT-IP Treatment Start: 04/11/18 07:37 Freq: NEEDED Status: Active Protocol: Document 04/14/18 15:00 [facility] (Rec: 04/14/18 15:59 [facility] [id number]) Physical Therapy Treatment Exercises Exercises Gluteal Sets Quad Sets Seated Knee Flexion/Extension Other Treatments Other Treatment Performed Sit to stand from height bed x 2, 1 min each time with yvette walker. Standing small knee bends. M7 PT-IP Assessment and Plan Start: 04/11/18 07:37 Freq: NEEDED Status: Active Protocol: Document 04/14/18 15:00 [facility] (Rec: 04/14/18 15:59 [facility] [id number]) PT Summary Assessment and Plan Summary Assessment Summary Pt improved with standing balance and quad activation. He was unable to weight shift in standing. He did have improved sitting balance, but fatigues quickly. He needed less assist for standing from higher surface. Frequency of Treatment Frequency Of Treatment Twice a Day Treatment Plan Other Recommendations and Next Treatment sitting balance, standing Focus balance, transfers Recommendations To Nursing Amount of Assist Needed PT/OT Assist Only Mechanical Lift Discharge Recommendations PT Discharge Recommendations SNF Rehab
[2018-04-14] MEDS: ACETAMINOPHEN 325 MG TABLET 650 MG PO (20:23)
[2018-04-14] MEDS: ATORVASTATIN 20 MG TABLET 80 MG PO (20:23)
[2018-04-14] MEDS: DONEPEZIL 5 MG TABLET 10 MG PO (20:25)
[2018-04-14] MEDS: LISINOPRIL 10 MG TABLET PO (20:25)
[2018-04-14] MEDS: MULTIVITAMIN 1 TABLET 1 TAB PO (20:26)
[2018-04-14] MEDS: LORATADINE 10 MG TABLET PO (20:26)
[2018-04-14] MEDS: SERTRALINE 50 MG TABLET PO (20:28)
[2018-04-15] VITALS (8 sets, daily range): BP systolic 119–151; BP diastolic 66–95; PULSE 79–97; RESP 14–18; TEMP 36.1–36.7; O2SAT 93–97
--- NOTE | 2018-04-15 03:12 | PC.NURSE ---
Addendum entered by Diane Christopher R.N. 04/15/18 06:30: Complains of upset stomach; medicated with Zofran ODT first and then given scheduled Protonix. Original Note: Patient is alert. Is EGEGIK; currently not wearing hearing aids. Is oriented to self, place, situation, birthdate and month but did not know age, date, day of week or year. 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 Speech is clear although somewhat slow. Left facial droop noted. Left extremities flaccid at this time but at start of shift was lifting left leg up off bed (currently unable to do that). NIH score is 13 which is consistent with previous scores. Breath sounds CTA with RA sat of 93. HRR. Denies nausea. BT present and had medium loose brown stool on bedpan. Continent of urine and denies dysuria, frequency or urgency. Is able to turn himself to left but not to right side so staff is assisting him q2h to prevent skin breakdown; currently no open/red areas noted. Denies pain. Fall risk score is medium but bed alarm is on for safety although doubtful that patient would attempt to get up by himself.
[2018-04-15] MEDS: ONDANSETRON 4 MG ODT PO (06:26)
[2018-04-15] MEDS: PANTOPRAZOLE 40 MG TABLET PO (06:26)
[2018-04-15] MEDS: DOCUSATE 100 MG CAPSULE PO ×2 (08:26→20:56)
[2018-04-15] MEDS: ASPIRIN EC 325 MG TABLET PO (08:26)
[2018-04-15] MEDS: ENOXAPARIN 40 MG/0.4 ML SYRINGE SUBCUT (08:26)
--- NOTE | 2018-04-15 10:06 | P.PN_ITS ---
Subjective Interval history: The bed new problems no new events in the past 24 hr patient denies chest pain shortness of breath palpitations headache. He still has inability to use left side of his body Exam Vital Signs (past 8 hours): - 04/15/18 05:00 04/15/18 08:30 04/15/18 08:52 Temperature 97.8 F 97.0 F L Pulse Rate 82 97 H Respiratory Rate 14 18 Blood Pressure 151/88 H 150/95 H Pulse Oximetry 97 97 95 Oxygen Delivery Method Room Air Oxygen Flow Rate 0 Narrative Exam Narrative: General NAD HEENT normocephalic atraumatic extraocular movement is intact pupils equal round reactive fundi not visualized oropharynx is clear Neck is supple without thyromegaly bruits or jugular venous distension Heart regular rhythm S1-S2 was normal there are no listhesis rubs murmurs gallops present Lungs Clear to auscultation Abdomen benign Extremities no clubbing demons cyanosis pulses 2+ equal active Neurologic left hemiparesis left facial droop Skin no acute changes Objective Labs Result Diagrams: 04/10/18 14:12 04/10/18 14:12 Assessment & Plan Plan: Assessment/Plan Narrative: 1. 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 Aspirin started 325 mg daily and Lipitor 80 mg daily Permissive hypertension provided first 24 hours since stroke symptoms first noted. . Note the lisinopril discontinued initially and THEN resumed in a.m. 9/4. The initial CT of the head was negative for stroke. MRI reports acute right pontine stroke. Awaiting for placement to intermediate facility 2. History of remote seizures and brain tumor with craniectomy Continue patient's home medications as tolerated. Disposition Awaiting placement to skilled facility for ongoing rehab Quality VTE Deep Vein Thrombosis/Pulmonary Embolism Present on Admission: No
--- NOTE | 2018-04-15 11:05 | PT.IPTN ---
Current Diagnoses Cerebral infarction, unspecified (04/10/18) Physical Therapy Treatment Note M2 PT-IP Current Condition Start: 04/11/18 07:37 Freq: NEEDED Status: Active Protocol: Document 04/15/18 11:05 [facility] (Rec: 04/15/18 11:24 [facility] [id number]) Physical Therapy Current Condition Current Condition Evaluation Date 04/11/18 Treatment Diagnosis L hemiparesis, impaired mobility Onset Date 04/10/18 M3 PT-IP Subjective Start: 04/11/18 07:37 Freq: NEEDED Status: Active Protocol: Document 04/15/18 11:05 [facility] (Rec: 04/15/18 11:24 [facility] [id number]) Subjective Physical Therapy Visit Type Type Treatment Note Visit Start Time 10:35 Visit Stop Time 11:05 Total Visit Minutes 30 Notes joint session with OT Number of IN FLIGHT REFUELING SYSTEM REPAIRER Visits 0 Physical Therapy Visit Comments Patient Comments Pt notes that he feels some more movement in the LLE, and is able to slightly move his fingers. M4 PT-IP Mobility and Gait Start: 04/11/18 07:37 Freq: NEEDED Status: Active Protocol: Document 04/15/18 11:05 [facility] (Rec: 04/15/18 11:24 [facility] [id number]) PT-Bed Mobility Assessment Rolling Type of Rolling Log Rolling Level of Assist Moderate Assistance Maximal Assistance 2 Person Assistance Supine to Sit Supine to Sit Moderate Assistance 2 Person Assistance Scooting Scooting to Edge of Bed Maximum Assistance PT-Transfer Assessment Sit to and From Stand Sit to and from Stand Moderate Assistance 2 Person Assistance Equipment Transfer Assistive Device Gait Belt Transfers Transfer Destination Chair Transfer Technique Squat Pivot Transfer Ability Level of Assist Maximum Assistance 2 Person Assistance Comments Mobility Comments sit<->stand x1 with PT manually assisting/input to LUE. Transfer was completed with LUE in sling. Required blocking of LLE with PT in front of pt due to weakness. Gait Assessment Comments Gait Comments unable M5 PT-IP Objective Assessments Start: 04/11/18 07:37 Freq: NEEDED Status: Active Protocol: Document 04/11/18 09:12 RS (Rec: 04/11/18 09:29 RS [id number]) Orientation Orientation/Cognition Level of Alertness Alert Language Function Ability Hard of Hearing Gross Range of Motion Lower Extremity ROM Assessment Within Functional Limits Strength Lower Extremity Strength Assessment Left Impaired Comments Strength Comments LLE not formally tested in full as pt needing to get to the BS right away. Pt does have some voluntary movement in the LLE, grossly thought 2- /5. Muscle Tone Muscle Tone WNL Yes Muscle Tone Location Left Lower Extremity Type of Tone Hypotonicity Severity of Tone Moderate M6 PT-IP Treatment Start: 04/11/18 07:37 Freq: NEEDED Status: Active Protocol: Document 04/15/18 11:05 [facility] (Rec: 04/15/18 11:24 [facility] [id number]) Physical Therapy Treatment Exercises Exercises Gluteal Sets Quad Sets Seated Knee Flexion/Extension Other Treatments Other Treatment Performed bridging x4, hooklying hip adduction M7 PT-IP Assessment and Plan Start: 04/11/18 07:37 Freq: NEEDED Status: Active Protocol: Document 04/15/18 11:05 [facility] (Rec: 04/15/18 11:24 [facility] [id number]) PT Summary Assessment and Plan Summary Assessment Summary Pt with improved quadriceps activation in supine and sitting, but still lacks appropriate strength to manage and stabilize the L knee in standing. Pt still unable to control LLE when attempting weight shifting, therefore not appropriate for gait at this time. Goals Bed Mobility Goal Minimal Assistance Transfer Goal Minimal Assistance Days to Meet Goals 5 Frequency of Treatment Frequency Of Treatment Twice a Day Treatment Plan Other Recommendations and Next Treatment standing balance->weight Focus shifting, ambulation trail when able. Recommendations To Nursing Amount of Assist Needed PT/OT Assist Only Mechanical Lift Discharge Recommendations PT Discharge Recommendations SNF Rehab
--- NOTE | 2018-04-15 11:59 | CM.DPC ---
DCP SNF Planning Per MD, pt could be medically stable for SNF this weekend. SW called [facility] admissions and they confirmed that they are still reviewing clinicals and then called SW back after review and stated that they can tentatively accept the pt pending a check of pt's MCR benefits to confirm he has not used up his SNF benefit for this year (pt and spouse deny any SNF rehab since the 1969's). [facility] states they may not have an opening until Tuesday but request SW call tomorrow (Tuesday) to confirm. LUCÍA completed PASRR. SW met bedside with pt and spouse and explained role and updated white board and updated them on the above information and pt and spouse still agreeable with [facility] SN[facility] rehab at d/c as this is their SNF preference. LUCÍA updated RN. Plan: SW to follow tomorrow (Tue) with [facility] admissions to confirm if they can accept the pt tomorrow or have to wait until Tuesday for availability but will push for Tuesday. PASRR complete. SHEILA Gomez
--- NOTE | 2018-04-15 12:34 | OT.IP.TRT ---
Current Diagnoses Cerebral infarction, unspecified (04/10/18) Occupational Therapy Treatment Note M2 OT-IP Current Condition Start: 04/11/18 09:43 Freq: Status: Active Protocol: Document 04/11/18 15:36 [facility] (Rec: 04/11/18 15:44 [facility] [id number]) Occupational Therapy Current Condition Current Condition Evaluation Date 04/11/18 Treatment Diagnosis Left sided weakness Diagnosis Onset Date 04/10/18 M3 OT- IP Subjective and Pain Start: 04/11/18 09:43 Freq: Status: Active Protocol: Document 04/15/18 12:29 [facility] (Rec: 04/15/18 12:34 [facility] [id number]) OT- Subjective Occupational Therapy Visit Type Type Treatment Note Visit Start Time 10:35 Visit Stop Time 11:10 Total Visit Minutes 35 OT Pain Assessment Pain When Pain Assessed At Rest Pain Present Pain Present Denied Pain M4 OT- IP ADL's Start: 04/11/18 09:43 Freq: Status: Active Protocol: Document 04/14/18 12:21 [facility] (Rec: 04/14/18 12:30 [facility] [id number]) OT ADL-Dressing General Eval Lower Body Dressing Ability Maximum Assistance Areas Needing Assistance Retrieving/Set-up of Clothing Socks Comments OT Dressing Comments Due to poor control and decreased functional use of left arm, pt needing MAXa for LB dressing needs at this time . OT ADL-Toileting General Evaluation Toileting Ability Total Assistance Areas Needing Assistance Manage Clothing Perform Perineal Hygiene Devices Toileting Assistive Devices Commode Comments OT Toileting Comments MAX A x 2 to stand/squat pivot to the [facility] and also with use of sling for LUE. MAX A X2 to transfer from [facility] to recliner as well. Third person needed for safety and to hygiene after bowel movement. M5 OT- IP IADL's Start: 04/11/18 09:43 Freq: Status: Active Protocol: Document 04/11/18 09:43 [facility] (Rec: 04/11/18 10:19 [facility] [id number]) OT-Instrumental Activities of Daily Living Home Safety Awareness Awareness of Need for Assistance at Home Decreased Awareness Ability to Problem Solve Emergency Unable to Problem Solve Situations Medication Management Medication Management Caregiver Administers Money Management Money Management Caregiver Provides Assistance Meal Preparation Meal Preparation Caregiver Provides Assist Lens Silverer Lens Silverer Caregiver Provides Assist Driving Driving Caregiver Provides Assist M6 OT- IP Functional Cognition Start: 04/11/18 09:43 Freq: Status: Active Protocol: Document 04/15/18 12:29 [facility] (Rec: 04/15/18 12:34 [facility] [id number]) Cognitive Factors Limiting Selfcare Function Cognitive Ability Level of Alertness Alert Patient Orientation Name Attention Span Ability Capable of Focused Attention Unable to Sustain Attention Ability to Follow Commands Able to Follow One Step Commands with Increased Time Able to Follow One Step Commands with Repetition Memory Description Immediate Impaired Short Term Impaired Safety Awareness Underestimates Need for Assistance Problem Solving Ability Needs Assist to Identify Solutions M7 OT- IP Mobility and Balance Start: 04/11/18 09:43 Freq: Status: Active Protocol: Document 04/15/18 12:29 [facility] (Rec: 04/15/18 12:34 [facility] [id number]) OT- Bed Mobility Assessment Rolling Type of Rolling Roll to Left Level of Assistance Moderate Assistance Maximum Assistance 2 Person Assistance Supine to Sit Supine to Sit Assist Moderate Assistance 1 Person Assistance OT-Transfer Assessment Sit to and From Stand Sit to and from Stand Moderate Assistance 2 Person Assistance Transfers Transfer Ability Maximum Assistance 2 Person Assistance Technique Transfer Destination Chair Devices Transfer Assistive Devices Gait Belt Comments Mobility Comments Joint session with PT, noted more control with LLE and LUE for sitting at edge of the bed and able to sit after set-up with SBA to [place], better awarness of midline today. Transsfer use of sling for LUE and PT to block left knee and help along with OT for squat transfer to recliner. Pt able to hold urinal in place and do pericare needs after set-up while sitting in recliner. OT- Balance Assessment Sitting Balance and Reactions Static Sitting Balance Ability Fair Dynamic Sitting Balance Ability Poor Standing Balance and Reactions Static Standing Balance Ability Poor Dynamic Standing Balance Ability Poor M8 OT- IP Objective Assessments Start: 04/11/18 09:43 Freq: Status: Active Protocol: Document 04/11/18 09:43 [facility] (Rec: 04/11/18 10:19 [facility] [id number]) OT Gross Range of Motion Upper Extremity Range of Motion Assessment Left Impaired ROM Impairments WFL for PROM for LUE, AROM impaired due to weakness and unable to lift arm against gravity at this time. OT Strength Comments Strength Comments LUE 2-/5 to 3-/5 from proximal to distal. RUE intact and WFL OT-Muscle Tone Assessment Muscle Tone WNL No Muscle Tone Location Left Lower Extremity Type of Tone Hypotonicity Severity of Tone Moderate OT Sensation Assessment Comments Summary Comments Decreased for sensation light touch for localization for forearm to fingertips. Decreased proprioception for LUE and noted neglect as well. M9 OT- IP Assessment and Plan Start: 04/11/18 09:43 Freq: Status: Active Protocol: Document 04/15/18 12:29 [facility] (Rec: 04/15/18 12:34 [facility] [id number]) OT Summary Assessment and Plan Potential Rehabilitation Potential Good Analytic Complexity at Evaluation Moderate Goals Days to Meet Goals 7 Frequency of Treatment Frequency Of Treatment Once a Day Treatment Plan OT Treatment Plan ADL Training Functional Cognition Training Functional Mobility Neuromuscular Re-education Patient/Family Education Discharge Planning Other Treatment Recommendations and Next Incorporation of RUE for ADL's Treatment Focus . Discharge Recommendations OT Discharge Recommendations SNF Rehab
--- NOTE | 2018-04-15 16:57 | PT.IPTN ---
Current Diagnoses Cerebral infarction, unspecified (04/10/18) Physical Therapy Treatment Note M2 PT-IP Current Condition Start: 04/11/18 07:37 Freq: NEEDED Status: Active Protocol: Document 04/15/18 16:57 [facility] (Rec: 04/15/18 17:04 [facility] [email or web address]) Physical Therapy Current Condition Current Condition Evaluation Date 04/11/18 Treatment Diagnosis L hemiparesis, impaired mobility Onset Date 04/10/18 M3 PT-IP Subjective Start: 04/11/18 07:37 Freq: NEEDED Status: Active Protocol: Document 04/15/18 16:57 [facility] (Rec: 04/15/18 17:04 [facility] [id number]) Subjective Physical Therapy Visit Type Type Treatment Note Visit Start Time 16:30 Visit Stop Time 16:57 Total Visit Minutes 27 Notes Eugenie RESIDENTIAL INTERIOR DESIGNER assisted with session Number of RESIDENTIAL INTERIOR DESIGNER Visits 0 Physical Therapy Visit Comments Patient Comments Pt wants to get better, he states he is trying hard. M4 PT-IP Mobility and Gait Start: 04/11/18 07:37 Freq: NEEDED Status: Active Protocol: Document 04/15/18 16:57 [facility] (Rec: 04/15/18 17:04 [facility] [id number]) PT-Bed Mobility Assessment Rolling Type of Rolling Log Rolling Roll to Left Level of Assist Maximal Assistance 1 Person Assistance Supine to Sit Supine to Sit Maximum Assistance 1 Person Assistance Scooting Scooting to Edge of Bed Maximum Assistance PT-Transfer Assessment Sit to and From Stand Sit to and from Stand Maximum Assistance 2 Person Assistance Equipment Transfer Assistive Device Gait Belt Transfers Transfer Destination Chair Transfer Technique Squat Pivot Transfer Ability Level of Assist Maximum Assistance 2 Person Assistance Comments Mobility Comments sling LUE, PT blocking L knee. Able to take 1 step with RLE x2 toward chair- L knee hyperextension. PT-Balance Assessment Sitting Balance and Reactions Static Sitting Balance Ability Fair Dynamic Sitting Balance Ability Poor Standing Balance and Reactions Static Standing Balance Ability Poor Dynamic Standing Balance Ability Poor M5 PT-IP Objective Assessments Start: 04/11/18 07:37 Freq: NEEDED Status: Active Protocol: Document 04/15/18 16:57 [facility] (Rec: 04/15/18 17:04 [facility] [id number]) Muscle Tone Muscle Tone Location Left Lower Extremity Type of Tone Hypotonicity M6 PT-IP Treatment Start: 04/11/18 07:37 Freq: NEEDED Status: Active Protocol: Document 04/15/18 16:57 [facility] (Rec: 04/15/18 17:04 [facility] [email or web address]) Physical Therapy Treatment Exercises Exercises Gluteal Sets Heel Slides Short Arc Quads Other Treatments Other Treatment Performed assist with all exercises; also performed bridging x6 with LLE assistance in WB M7 PT-IP Assessment and Plan Start: 04/11/18 07:37 Freq: NEEDED Status: Active Protocol: Document 04/15/18 16:57 [facility] (Rec: 04/15/18 17:04 [facility] [id number]) PT Summary Assessment and Plan Summary Assessment Summary Pt requires continuous cuing for midline awareness and achievement, along with manual assistance with all mobility. Pt was able to step x2 with RLE for approach to chair, but demonstrates severe L knee hyperextension and buckling in WB. Goals Bed Mobility Goal Minimal Assistance Transfer Goal Minimal Assistance Days to Meet Goals 5 Frequency of Treatment Frequency Of Treatment Twice a Day Treatment Plan Other Recommendations and Next Treatment prog. standing, WB/weight Focus shifting, gait when able. Recommendations To Nursing Amount of Assist Needed Mechanical Lift Discharge Recommendations PT Discharge Recommendations SNF Rehab
[2018-04-15] MEDS: ATORVASTATIN 20 MG TABLET 80 MG PO (20:55)
[2018-04-15] MEDS: LISINOPRIL 10 MG TABLET PO (20:56)
[2018-04-15] MEDS: DONEPEZIL 5 MG TABLET 10 MG PO (20:56)
[2018-04-15] MEDS: SENNOSIDES 8.6 MG TABLET 17.2 MG PO (20:57)
[2018-04-15] MEDS: MULTIVITAMIN 1 TABLET 1 TAB PO (20:57)
[2018-04-15] MEDS: SERTRALINE 50 MG TABLET PO (20:57)
[2018-04-15] MEDS: LORATADINE 10 MG TABLET PO (20:57)
[2018-04-16] VITALS (9 sets, daily range): BP systolic 108–142; BP diastolic 70–85; PULSE 75–93; RESP 15–18; TEMP 36.4–37; O2SAT 93–97
--- NOTE | 2018-04-16 00:43 | PC.NURSE ---
Addendum entered by Diane Christopher R.N. 04/16/18 06:12: Slept most of shift. Denies pain. Original Note: Patient is alert and oriented to self, birthdate, place and month. Was incorrect as to age and did not know date, day of week or year. Cannot remember staff names even after just a few minutes. [place]; wears hearing aids during the day. 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 Left facial droop. Left UE remains flaccid. Was able to, again, lift left leg/foot off bed a few inches but unable to move foot. NIH score is 10. Breath sounds CTA with RA sat of 96%. HRR. Denies nausea. BT present and abdomen is soft. Continent of urine; uses urinal. Assisted to reposition in bed; can help turn to left side but not to right side. Denies pain. Fall risk score is medium; bed alarm is activated.
[2018-04-16] MEDS: PANTOPRAZOLE 40 MG TABLET PO (06:10)
--- NOTE | 2018-04-16 08:19 | CM.DPNOTE ---
Addendum entered by SHEILA Avitia 04/16/18 15:50: Spoke with spouse, daughter and additional family members: remain agreeable to discharge SNF/[facility] and believe patient will require BLS transport. Per PT: patient would require BLS transportation. SW called [facility] and scheduled BLS for 1030. Family and RN aware. Plan: patient to discharge to SNF/[facility] at 1030 tuesday morning via BLS transport. Original Note: Called [facility] [phone]: They do not have any male beds today but are able to accept patient tomorrow, Tuesday. Would like SW to set up transportation leaving no later than 11. Plan: discharge to SNF/[facility] Tuesday. SW to coordinate transportation. PASRR completed.
[2018-04-16] MEDS: ASPIRIN EC 325 MG TABLET PO (09:39)
[2018-04-16] MEDS: ENOXAPARIN 40 MG/0.4 ML SYRINGE SUBCUT (09:39)
[2018-04-16] MEDS: DOCUSATE 100 MG CAPSULE PO ×2 (09:39→20:45)
--- NOTE | 2018-04-16 10:07 | PM.PN.1 ---
Subjective Interval history: NO NEW PROBLEMS NO NEW EVENTS IN THE PRIOR 24 HR Exam Vital Signs (past 8 hours): - 04/16/18 04:00 04/16/18 08:31 Temperature 98.6 F 97.6 F Pulse Rate 86 93 H Respiratory Rate 18 18 Blood Pressure 139/84 134/72 Pulse Oximetry 93 96 Oxygen Delivery Method Room Air Oxygen Flow Rate 0 Narrative Exam Narrative: General NAD HEENT normocephalic atraumatic extraocular movement is intact pupils equal round reactive fundi not visualized oropharynx is clear Neck is supple without thyromegaly bruits or jugular venous distension Heart regular rhythm S1-S2 was normal there are no lifts, heaves, rubs murmurs gallops present Lungs Clear to auscultation Abdomen benign; bowel sounds present Extremities no clubbing edema, cyanosis pulses 2+ equal active Neurologic left hemiparesis left facial droop Skin no acute changes Objective Labs Result Diagrams: 04/10/18 14:12 04/10/18 14:12 Assessment & Plan Plan: Assessment/Plan Narrative: 1. 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 He is on Aspirin started 325 mg daily, lisinopril 10 mg p.o. daily, and Lipitor [address] of the head was negative for stroke. MRI revealed acute right pontine stroke. 2. History of remote seizures and brain tumor with craniectomy Continue patient's home medications as tolerated. DISPOSITION Awaiting placement to skilled facility for ongoing rehab Quality VTE Deep Vein Thrombosis/Pulmonary Embolism Present on Admission: No
--- NOTE | 2018-04-16 14:16 | PT.IPTN ---
Current Diagnoses Cerebral infarction, unspecified (04/10/18) Physical Therapy Treatment Note M2 PT-IP Current Condition Start: 04/11/18 07:37 Freq: NEEDED Status: Active Protocol: Document 04/16/18 14:16 [facility] (Rec: 04/16/18 15:28 [facility] [id number]) Physical Therapy Current Condition Current Condition Evaluation Date 04/11/18 Treatment Diagnosis L hemiparesis, impaired mobility Onset Date 04/10/18 M3 PT-IP Subjective Start: 04/11/18 07:37 Freq: NEEDED Status: Active Protocol: Document 04/16/18 14:16 [facility] (Rec: 04/16/18 15:28 [facility] [id number]) Subjective Physical Therapy Visit Type Type Treatment Note Visit Start Time 13:55 Visit Stop Time 14:16 Total Visit Minutes 21 Number of FRINGE KNOTTER Visits 0 Physical Therapy Visit Comments Patient Comments pt needs to get to BSC. Therapy Pain Assessment Pain Present Pain Present Denied Pain M4 PT-IP Mobility and Gait Start: 04/11/18 07:37 Freq: NEEDED Status: Active Protocol: Document 04/16/18 14:16 [facility] (Rec: 04/16/18 15:28 [facility] [id number]) PT-Bed Mobility Assessment Rolling Type of Rolling Roll to Left Level of Assist Maximal Assistance 1 Person Assistance Supine to Sit Supine to Sit Maximum Assistance 1 Person Assistance Scooting Scooting to Edge of Bed Maximum Assistance PT-Transfer Assessment Comments Mobility Comments transfer to BSC with mechanical lift due to difficulty of transfer and fatigue of transfer to BSC, sitting, then to the chair. Gait Assessment Comments Gait Comments unable PT-Balance Assessment Sitting Balance and Reactions Static Sitting Balance Ability Poor Dynamic Sitting Balance Ability Poor Comments Other Balance Tests/Deviations/Treatment poor sitting balance- Mod/Max : A x2- one to manage LUE in WB and another to prevent falling posteriorly. Listing to the L . M5 PT-IP Objective Assessments Start: 04/11/18 07:37 Freq: NEEDED Status: Active Protocol: Document 04/15/18 16:57 [facility] (Rec: 04/15/18 17:04 [facility] [id number]) Muscle Tone Muscle Tone Location Left Lower Extremity Type of Tone Hypotonicity M6 PT-IP Treatment Start: 04/11/18 07:37 Freq: NEEDED Status: Active Protocol: Document 04/16/18 14:16 [facility] (Rec: 04/16/18 15:28 [facility] [id number]) Physical Therapy Treatment Other Treatments Other Treatment Performed Ankle PF vs PT's resistance, quad sets in supine M7 PT-IP Assessment and Plan Start: 04/11/18 07:37 Freq: NEEDED Status: Active Protocol: Document 04/16/18 14:16 [facility] (Rec: 04/16/18 15:28 [facility] [id number]) PT Summary Assessment and Plan Summary Progress Towards Goals Slow Progress due to Medical Issues Assessment Summary Pt still requires assistance for all mobility- including assistance for sitting on EOB. Pt demonstrates impaired trunk control, and unable to sit upright without manual assistance. He lists to the affected side when sitting in a supportive chair and BSC, requiring the use of pillows and manual adjustments to maintain appropriate posture. Pt would not tolerate sitting in a w/c for transport at this time, and required the use of a mechanical lift to transfer due to impaired activity tolerance. Goals Bed Mobility Goal Minimal Assistance Transfer Goal Minimal Assistance Days to Meet Goals 5 Frequency of Treatment Frequency Of Treatment Twice a Day Treatment Plan Other Recommendations and Next Treatment progress transfers- 2 assist Focus required for manual transfer, continue to advance strengthening (AROM and AAROM) for affected L side. Recommendations To Nursing Amount of Assist Needed PT/OT Assist Only Mechanical Lift Discharge Recommendations PT Discharge Recommendations SNF Rehab
--- NOTE | 2018-04-16 14:24 | PC.NURSE ---
Pt is a&ox2. He does have some memory loss and ask the same questions as he forgets. He is unable to lift up his left leg and cannot wiggle his toes today. 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 Pt has peripheral issues with vision from his craniotomy surgery. He was able to answer all questions and describe things in detail when doing the NIH Stroke Scale-Picture description and Naming list. Pt is continent of both bladder and bowel. He worked with pt and is now up in the chair sitting. He denies pain. He does have some discomfort when his l.arm is moved. Visiting with his family at this time.
--- NOTE | 2018-04-16 16:27 | P.DS_ITS ---
History of Present Illness <Phill Worthy MD - Last Filed: 04/16/18 16:33> Chief complaint: L sided weakness. Discharge Providers <Phill Worthy MD - Last Filed: 04/16/18 16:33> Date of admission: 04/10/18 15:57 Consults: 04/10/18 16:40 Consult to Occupational Therapy Evaluate & Treat Comment: Physician Instructions: Evaluate and treat 04/10/18 17:24 Consult to Dedicated Owner Operator Routine Comment: 04/11/18 07:29 Consult to Physical Therapy Evaluate & Treat Comment: Physician Instructions: Evaluate and Treat 04/11/18 12:36 Consult to Speech Therapy Evaluate & Treat Comment: Physician Instructions: Evaluate and treat 04/11/18 12:59 Consult to Speech Therapy Evaluate & Treat Comment: Physician Instructions: Evaluate and treat Discharge provider: Phill Worthy MD Summary <Phill Worthy MD - Last Filed: 04/16/18 16:33> Discharge Diagnosis: 1. Right CVA with residual left hemiparesis 2. History of remote seizures and brain tumor with craniectom CONSULTATIONS None PROCEDURES CT head--no acute intracranial pathology. Right posterior parietal encephalomalacia with stable postsurgical changes CTA head/neck--intracranial circulation normal. Bilateral neck arteries without hemodynamically significant stenosis. Stable craniotomy changes MRI brain--acute or subacute right pontine infarct; old right pre told- occipital infarct with encephalomalacia Echocardiogram--EF 60-65%. No focal wall motion abnormalities. Normal diastolic function. No shunt demonstrated with injection of contrast Hospital Course: 1. Right CVA with residual left hemiparesis and mild expressive dysarthria Patient presented on admission having awakened from sleep with new left-sided hemiparesis and slurring of his speech. Upon presentation to the ED he was noted to have left-sided hemiparesis. CT of the head did not reveal any acute changes but his clinical findings were that of acute stroke. MRI I have the brain confirmed an acute stroke in right pontine location. Further evaluations such as vascular eval with CTA of the neck and brain did not reveal any vascular abnormalities. He has been seen by PT OT and is felt that he would benefit by detention for ongoing rehab He is on Aspirin 325 mg daily, lisinopril 10 mg p.o. daily, and Lipitor 80 mg daily 2. 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 He is status post craniotomy of the median removal of tumor. 3. Remote history of seizures He has had no recent seizures. He is not on any anti epileptic drug therapy. CONDITION AT DISCHARGE HE IS HEMODYNAMICALLY STABLE. AFEBRILE. CLINICAL CONDITION IS STABLE. HE IS FELT READY FOR DISCHARGE TO SNF FOR ONGOING REHAB Status at Discharge Cognitive/behavioral status at discharge: Cognition is intact with the patient being awake oriented x3 throughout hospitalization Functional status at discharge: uses cane/walker Overall status at discharge: patient is not back to baseline Exam <Phill Worthy MD - Last Filed: 04/16/18 16:33> Vital Signs (past 8 hours): - 04/16/18 08:31 04/16/18 12:00 Temperature 97.6 F 97.8 F Pulse Rate 93 H 83 Respiratory Rate 18 18 Blood Pressure 134/72 119/84 Pulse Oximetry 96 97 Oxygen Delivery Method Room Air Oxygen Flow Rate 0 Narrative Exam Narrative: General NAD HEENT normocephalic atraumatic extraocular movement is intact pupils equal round reactive fundi not visualized oropharynx is clear Neck is supple without thyromegaly bruits or jugular venous distension Heart regular rhythm S1-S2 was normal there are no lifts, heaves, rubs murmurs gallops present Lungs Clear to auscultation Abdomen benign; bowel sounds present Extremities no clubbing edema, cyanosis pulses 2+ equal active Neurologic left hemiparesis left facial droop Skin no acute changes Objective <Phill Worthy MD - Last Filed: 04/16/18 16:33> Labs Result Diagrams: 04/10/18 14:12 04/10/18 14:12 Labs: ECHOCARDIOGRAM Interpretation Summary 1. The left ventricle is normal in size. The left ventricular ejection fraction is normal. The ejection fraction is estimated to be 60-65%. There are no focal wall motion abnormalities. Assessment of diastolic parameters indicates normal left ventricular diastolic function and normal filling pressures. 2. The right ventricle is normal in size and function. Pulmonary artery pressures cannot be estimated because of the lack of a measurable TR jet velocity. 3. The left atrium is borderline dilated. The right atrium is mildly dilated. Injection of contrast documented no interatrial shunt. 4. There is no significant valvular heart disease. 5. The aortic arch is at the upper limits of normal in size. CTA HEAD/NECK IMPRESSION: 1. No hemodynamically significant stenosis or aneurysm is seen in the visualized intracranial circulation. 2. No hemodynamically significant stenosis is seen in bilateral neck arteries. 3. Stable post craniotomy changes in right posterior temporal parietal region, unchanged from previous study. No area of abnormal contrast enhancement is seen. MRI BRAIN IMPRESSION: 1. Acute or subacute right pontine infarct. 2. 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 3. Generalized cerebral volume loss. 4. Periventricular white matter chronic small vessel ischemic changes. CT HEAD IMPRESSION: No CT evidence of acute intracranial pathology. No significant changes from 11/22/17 study. Right posterior parietal encephalomalacia with stable post surgical changes. Discharge Plan Discharge Plan Discharge Problem: CVA (cerebral vascular accident) Patient Disposition: SNF Other facility: FACILITY FOR SNF Transportation: Ambulance Discharge comment: Patient is ready for discharge I certify the postop hospital detention care is medically necessary on a continuing basis for any conditions for which he/ she received care during this hospitalization.: Yes The receiving facility has agreed to accept transfer and provide medical treatment.: Yes Discharge Med Rec/Prescriptions Prescriptions: New acetaminophen 325 mg Tablet 650 mg PO Q6HR PRN (Reason: As Needed For Fever/Mild Pain) Qty: 30 RF: 0 magnesium hydroxide [Milk of Magnesia] 400 mg/5 mL Suspension 30 ml PO DAILY PRN (Reason: Constipation) Qty: 480 RF: 0 aspirin 325 mg Tablet,Delayed Release (Dr/Ec) 325 mg PO DAILY Qty: 30 RF: 0 bisacodyl 10 mg Suppository 10 mg [place] DAILY PRN (Reason: Constipation) Qty: 30 RF: 0 docusate sodium 100 mg Capsule 100 mg PO BID Qty: 30 RF: 0 ondansetron 4 mg Tablet,Disintegrating 4 mg PO Q8HR PRN (Reason: Nausea And Vomiting) Qty: 30 RF: 0 Continue donepezil 10 MG tablet 10 mg PO BEDTIME Qty: 0 RF: 0 lisinopril 10 MG tablet 10 mg PO BEDTIME Qty: 0 RF: 0 cholecalciferol (vitamin D3) [Vitamin D3] 2,000 unit Tablet 1,000 unit PO BEDTIME Qty: 0 RF: 0 atorvastatin 80 mg Tablet 80 mg PO BEDTIME RF: 0 ibuprofen 800 mg Tablet 800 mg PO QID PRN (Reason: Pain (Scale Score 1-3)) RF: 0 ranitidine HCl 150 mg Tablet 150 mg PO BID PRN (Reason: gerd) RF: 0 loratadine 10 mg Tablet 10 mg PO BEDTIME RF: 0 multivitamin Tablet,Chewable 1 tab PO BEDTIME RF: 0 Discharge Health Status Brief summary of current health status: Please see dictated discharge summary Provider Discharge Instructions Diet: Diet as Tolerated and Low-cholesterol Liquid consistency: Normal/Thin Food texture: Regular [facility] Rehabilitation Services Reason for rehabilitation: Therapy following stroke Rehab type: Physical therapy, Occupational therapy and Speech therapy Discharge Data Attending Provider: Manish Simons Admit Date/Time: 04/10/18 15:57 Quality <Phill Worthy MD - Last Filed: 04/16/18 16:33> VTE Deep Vein Thrombosis/Pulmonary Embolism Present on Admission: No
[2018-04-16] MEDS: MULTIVITAMIN 1 TABLET 1 TAB PO (20:45)
[2018-04-16] MEDS: LORATADINE 10 MG TABLET PO (20:45)
[2018-04-16] MEDS: SERTRALINE 50 MG TABLET PO (20:45)
[2018-04-16] MEDS: DONEPEZIL 5 MG TABLET 10 MG PO (20:45)
[2018-04-16] MEDS: LISINOPRIL 10 MG TABLET PO (20:45)
[2018-04-16] MEDS: SENNOSIDES 8.6 MG TABLET 17.2 MG PO (20:45)
[2018-04-16] MEDS: ATORVASTATIN 20 MG TABLET 80 MG PO (20:45)
--- NOTE | 2018-04-17 01:22 | PC.NURSE ---
Alert/oriented. denies pain. repositioned q 2 hours. Left arm/leg flaccid. Speech slurred. Bed alarm set and call light within reach.
[2018-04-17 03:38] VITALS: BP 126/74; PULSE 90; RESP 16; TEMP 36.6; O2SAT 94
[2018-04-17] MEDS: PANTOPRAZOLE 40 MG TABLET PO (06:33)
[2018-04-17 08:00] VITALS: BP 124/91; PULSE 85; RESP 18; TEMP 36.3; O2SAT 99
[2018-04-17] MEDS: ASPIRIN EC 325 MG TABLET PO (08:47)
[2018-04-17] MEDS: ENOXAPARIN 40 MG/0.4 ML SYRINGE SUBCUT (08:47)
[2018-04-17] MEDS: DOCUSATE 100 MG CAPSULE PO (08:47)
--- NOTE | 2018-04-17 09:55 | P.DS_ITS ---
History of Present Illness Chief complaint: L sided weakness. Discharge Providers Date of admission: 04/10/18 15:57 Consults: 04/10/18 16:40 Consult to Occupational Therapy Evaluate & Treat Comment: Physician Instructions: Evaluate and treat 04/10/18 17:24 Consult to Glass Bulb Machine Adjuster Routine Comment: 04/11/18 07:29 Consult to Physical Therapy Evaluate & Treat Comment: Physician Instructions: Evaluate and Treat 04/11/18 12:36 Consult to Speech Therapy Evaluate & Treat Comment: Physician Instructions: Evaluate and treat 04/11/18 12:59 Consult to Speech Therapy Evaluate & Treat Comment: Physician Instructions: Evaluate and treat Discharge provider: Lucie Avina MD Summary Discharge Diagnosis: Acute Right Pontine CVA Seizure disorder History of Astrocytoma Remote history of Craniotomy Hospital Course: Patient admitted for evaluation of abrupt onset left sided weakness. Extensive work up including CT/MRI/Echo confirmed a right pontine CVA. Patient continued to have left sided weakness. Plans were made for discharge to a SNF for ongoing care. Status at Discharge Overall status at discharge: patient is not back to baseline Time Spent with Patient Less than 30 minutes Exam Vital Signs (past 8 hours): - 04/17/18 03:38 04/17/18 08:00 Temperature 97.9 F 97.4 F L Pulse Rate 90 85 Respiratory Rate 16 18 Blood Pressure 126/74 124/91 H Pulse Oximetry 94 99 Oxygen Delivery Method Room Air Oxygen Flow Rate 0 Narrative Exam Narrative: Lungs: Clear to auscultation CV: RRR nl Sl S2 Abd: soft/non tender non distended Ext: no edema Neuro: unchanged from yesterday Objective Labs Result Diagrams: 04/10/18 14:12 04/10/18 14:12 Discharge Plan Discharge Plan Patient Disposition: SNF Other facility: FACILITY FOR SNF Transportation: Ambulance Discharge comment: Patient is ready for discharge I certify the postop hospital nursing home care is medically necessary on a continuing basis for any conditions for which he/ she received care during this hospitalization.: Yes The receiving facility has agreed to accept transfer and provide medical treatment.: Yes Discharge Med Rec/Prescriptions Prescriptions: New acetaminophen 325 mg Tablet 650 mg PO Q6HR PRN (Reason: As Needed For Fever/Mild Pain) Qty: 30 RF: 0 magnesium hydroxide [Milk of Magnesia] 400 mg/5 mL Suspension 30 ml PO DAILY PRN (Reason: Constipation) Qty: 480 RF: 0 aspirin 325 mg Tablet,Delayed Release (Dr/Ec) 325 mg PO DAILY Qty: 30 RF: 0 bisacodyl 10 mg Suppository 10 mg [place] DAILY PRN (Reason: Constipation) Qty: 30 RF: 0 docusate sodium 100 mg Capsule 100 mg PO BID Qty: 30 RF: 0 ondansetron 4 mg Tablet,Disintegrating 4 mg PO Q8HR PRN (Reason: Nausea And Vomiting) Qty: 30 RF: 0 Continue donepezil 10 MG tablet 10 mg PO BEDTIME Qty: 0 RF: 0 lisinopril 10 MG tablet 10 mg PO BEDTIME Qty: 0 RF: 0 cholecalciferol (vitamin D3) [Vitamin D3] 2,000 unit Tablet 1,000 unit PO BEDTIME Qty: 0 RF: 0 atorvastatin 80 mg Tablet 80 mg PO BEDTIME RF: 0 ibuprofen 800 mg Tablet 800 mg PO QID PRN (Reason: Pain (Scale Score 1-3)) RF: 0 ranitidine HCl 150 mg Tablet 150 mg PO BID PRN (Reason: gerd) RF: 0 loratadine 10 mg Tablet 10 mg PO BEDTIME RF: 0 multivitamin Tablet,Chewable 1 tab PO BEDTIME RF: 0 Discharge Health Status Brief summary of current health status: Please see dictated discharge summary Provider Discharge Instructions Diet: Diet as Tolerated and Low-cholesterol Liquid consistency: Normal/Thin Food texture: Regular [facility] Reason for rehabilitation: Therapy following stroke Rehab type: Physical therapy, Occupational therapy and Speech therapy Discharge Data Attending Provider: Manish Simons Admit Date/Time: 04/10/18 15:57 Quality VTE Deep Vein Thrombosis/Pulmonary Embolism Present on Admission: No
--- NOTE | 2018-04-17 10:29 | CM.DPNOTE ---
DCP Met with patient and spouse: remain agreeable to discharge to SNF/[facility]. [facility] to spanish moss picker at 1030. CM/Chavo to fax [facility] and d/c clinicals to [facility]. Plan: Discharge to [facility] today via [facility].
--- NOTE | 2018-04-17 10:33 | PT.IPTN ---
Current Diagnoses Cerebral infarction, unspecified (04/10/18) Physical Therapy Treatment Note Physical Therapy Current Condition Current Condition Evaluation Date 04/11/18 Treatment Diagnosis L hemiparesis, impaired mobility Onset Date 04/10/18 Subjective Physical Therapy Visit Type Type Treatment Note Visit Start Time 08:00 Visit Stop Time 08:25 Total Visit Minutes 25 Number of CENTER MGR Visits 0 Physical Therapy Visit Comments Patient Comments Pt motivated, looking forward to going to rehab to get stronger. Therapy Pain Assessment Pain Present Pain Present Denied Pain PT-Bed Mobility Assessment Rolling Type of Rolling Roll to Left Level of Assist Maximal Assistance 1 Person Assistance Supine to Sit Supine to Sit Maximum Assistance 1 Person Assistance Sit to Supine Sit to Supine Maximum Assistance 1 Person Assistance Scooting Scooting to Edge of Bed Maximum Assistance PT-Transfer Assessment Sit to and From Stand Sit to and from Stand Maximum Assistance 2 Person Assistance Equipment Transfer Assistive Device Gait Belt Gait Assessment Comments Gait Comments not able to perform Stair Climbing Assessment Comments Stair Climbing Comments not able to perform Physical Therapy Treatment Exercises Exercises Ankle Pumps Heel Slides Supine Hip Abduction Short Arc Quads PT Summary Assessment and Plan Potential Rehabilitation Potential Good Status of Condition at Evaluation Stable Summary Progress Towards Goals Slow Progress due to Medical Issues Assessment Summary Pt continues to present with L hemiparesis and requires significant assist for all mobility. This remains well below pt's reported functional baseline. Pt does still have good potential for functional improvement, therefore, continued to recommend pt transition to SNF rehab once medically ready. Pt is discharging to [facility] today. Frequency of Treatment Frequency Of Treatment Discharge
--- NOTE | 2018-04-17 11:16 | PC.NURSE ---
REPORT GIVEN TO JOCELINE AT [facility]. ALL QUESTIONS ANSWERED TO SATISFACTION.
== END 2018-04-17 11:00 | DRG 65 ==
LOC: ED 13:26 → AC 15:57
PROVIDERS: Admitting Provider Internal Medicine; Emergency Provider Emergency Medicine; Visit Provider Internal Medicine
DX: I63.9 Cerebral infarction, unspecified (principal); G81.94 Hemiplegia, unspecified affecting left nondominant side; R47.81 Slurred speech; I10 Essential (primary) hypertension; E78.5 Hyperlipidemia, unspecified; Z85.841 Personal history of malignant neoplasm of brain
CPT/HCPCS: 36591; 70450; 70496; 70498; 70553; 71045; 80053; 81003; 81015; 82550; 82553; 83036; 83690; 84484; 85025; 85610; 85730; 92507; 92522; 93005; 93010; 93306; 97110; 97162; 97166; 97530; 97535; 99284; 99285; A9579; J1650; Q9967

== ENCOUNTER 2020-05-26 18:02 | Inpatient (IN) | payer OTHER, SELFPAY ==
[2018-04-10 17:01] VITALS: BMI 34.0
[2020-05-26] VITALS (18 sets, daily range): BP systolic 159–194; BP diastolic 74–93; PULSE 64–82; RESP 13–23; TEMP 36.8–37; O2SAT 93–98; BMI 29.5
--- NOTE | 2020-05-26 18:11 | DI.CT.S_ITS ---
PROCEDURE: CT HEAD/BRAIN WO CON INDICATIONS: altered mental status, slurring speech, weak NO TPA TECHNIQUE: Noncontrast 4.5 mm thick angled axial sections acquired from the foramen magnum to the vertex, with coronal and sagittal reformats. For radiation dose reduction, the following was used: automated exposure control, adjustment of mA and/or kV according to patient size. COMPARISON: [facility], CT, CT HEAD/BRAIN WO CON, 04/10/2018, 13:28. FINDINGS: Image quality: Excellent. CSF spaces: Basal cisterns are patent. No extra-axial fluid collections. The ventricles are symmetric in size and shape. Brain: Again noted is large right posterior parietal encephalomalacia with areas of dystrophic calcifications not significantly changed in appearance and size from 2018 study. No intracranial bleeds or masses. There is cerebral volume loss for age, with resultant ventricular and sulcal prominence. There are periventricular and deep white matter chronic small vessel ischemic changes. There is intracranial internal carotid artery atherosclerosis. Skull and face: Prior right posterior temporal parietal craniotomy is again seen unchanged from prior study. Sinuses: Visualized sinuses and mastoids are clear. IMPRESSION: 1. No significant changes from previous study. No CT evidence of acute intracranial pathology. 2. Ventricle sizes are not significantly changed from prior study. 3. Stable postsurgical changes from prior right posterior temporal parietal craniotomy with large area of right posterior temporal parietal encephalomalacia. Dictated by: Bassam Ceron M.D. on 05/26/2020 at 18:00 Approved by: Bassam Ceron M.D. on 05/26/2020 at 18:03
--- NOTE | 2020-05-26 18:11 | DI.RAD.S_ITS ---
PROCEDURE: XR CHEST 1V INDICATIONS: weakness TECHNIQUE: One view of the chest was acquired. COMPARISON: [facility], CR, XR CHEST 1V, 04/10/2018, 13:30 FINDINGS: Surgical changes and devices: None. Lungs and pleura: There is pulmonary vascular congestion. No definite focal infiltrate. No pleural effusions or pneumothorax. Mediastinum: Mediastinal contours appear normal. Heart size is enlarged. Bones and chest wall: No suspicious bony lesions. Overlying soft tissues appear unremarkable. IMPRESSION: Cardiomegaly and pulmonary vascular congestion. No focal infiltrate, pleural effusion or pneumothorax. Dictated by: Bassam Ceron M.D. on 05/26/2020 at 17:57 Approved by: Bassam Ceron M.D. on 05/26/2020 at 17:57
--- NOTE | 2020-05-26 18:15 | ED.AMS ---
HPI - Altered Mental Status General Chief Complaint: Neuro Symptoms/Deficit Stated Complaint: SLUR SPEACH WEAKNESS Time Seen by Provider: 05/26/20 18:06 Source: patient and family Mode of arrival: Wheelchair Limitations: altered mental status History of Present Illness HPI narrative: 65M nonsmoker with history of HTN, hyperlipidemia and prior CVA presents with his whom has concern about a possible stroke. He went to bed last night and normal state of health and woke up today at about 1:00 p.m. (which is apparently normal frame) and she noted him to be profoundly weak in both of his lower extremities, confused and was slurring his speech. He does not take any blood thinners, has had no injury and was at baseline when he went to bed. He denies runny nose, sore throat or cough. He has had no chest pain or shortness of breath. He denies any fever chills. He denies nausea, vomiting or diarrhea. He denies any change in medications or diet. MD complaint: altered mental status, confusion and weakness Onset (ago): hour(s) Timing confirmed by: family member Severity: moderate Consistency of symptoms: constant Related Data Home Medications Medication Instructions Recorded Confirmed donepezil 10 mg PO BEDTIME #0 04/30/16 05/26/20 lisinopril 20 mg PO BEDTIME #0 11/22/17 05/26/20 loratadine 10 mg PO BEDTIME 04/10/18 05/26/20 multivitamin 1 tab PO BEDTIME 04/10/18 05/26/20 metoprolol tartrate 25 mg DAILY 05/26/20 05/26/20 Previous Rx's Medication Instructions Recorded acetaminophen 650 mg PO Q6HR PRN #30 tab 04/16/18 Allergies Allergy/AdvReac Type Severity Reaction Status Date / Time No Known Drug Allergies Allergy Verified 05/26/20 18:23 Review of Systems Review of Systems ROS Unobtainable: Unobtainable due to mental status/LOC Patient History Medical History Hyperlipemia (Acute) Hypertension (Acute) Surgical History H/O craniotomy (Acute) Social History household members: spouse Smoking Status: Never smoker alcohol intake: never Smoking Status: Never smoker Substance Use Type: does not use Exam Narrative Exam Narrative: GENERAL: [65] year old patient appears older than stated age. Chronic illness, acutely distressed, weakness requiring 3 of us to get him from the wheelchair and he normally walks on his own. GCS 14 HEAD: Atraumatic. Normocephalic. EYES: Pupils equal round and reactive. Extraocular motions intact. No scleral icterus. No injection or drainage. ENT: Nose without bleeding, purulent drainage. Throat without erythema, tonsillar hypertrophy or exudate. Airway patent. NECK: Trachea midline. Non tender CARDIOVASCULAR: Regular rate and rhythm without murmurs, gallops, or rubs. RESPIRATORY: Clear to auscultation. Breath sounds equal bilaterally. No wheezes, rales, or rhonchi. GASTROINTESTINAL: Abdomen soft, non-tender, nondistended. EXTREMITIES: No edema or joint tenderness. BACK: Nontender without deformity or crepitance. No flank tenderness. NEURO: Awake, alert, confused about date. Residual left sided weakness noted. d SKIN: No rash or erythema of visible areas Initial Vital Signs Initial Vital Signs: Vital Signs Pulse Rate 71 05/26/20 18:12 Pulse Oximetry 96 05/26/20 18:12 Scores NIH Stroke Scale Level of Conciousness: Alert, keenly responsive Ask month/age: Answers one question correctly, intubated follow commands Open/close eyes, close hand: Performs both tasks correctly Best gaze horizontal: Normal Visual talley: No visual loss Facial palsy: Normal symetrical movement Left arm drift: Some effort against gravity, cannot maintain, drifts down to bed Right arm drift: No drift for full 10 sec Left leg drift: Some effort against gravity, cannot maintain, drifts down to bed Right leg drift: Drifts down, not to bed Limb ataxia: Absent Sensory on face/arms/legs: Normal, no sensory loss Best language: No aphasia, normal Dysarthria: Mild to mod,some slurring Extinction or inattention: No abnormality Total NIH Stroke scale score: 7 Course Orders Ordered: ED Orders 05/26/20 18:11 CT head/brain wo con Stat XR chest 1V Stat EKG-12 Lead Stat 05/26/20 18:20 Acetaminophen Stat Complete Blood Count AUTO DIFF Stat Comprehensive Metabolic Panel Stat Ethanol (ETOH) Stat Lactate (Lactic Acid) Stat NT-proBNP (BNP-Adult 18+) Stat Partial Thromboplastin Time Stat Procalcitonin Stat Prolactin Stat Prothrombin Time INR Stat Salicylate Stat Thyroid Stimulating Hormone Stat Troponin & CK Cardiac Panel Stat 05/26/20 18:33 Ammonia (NH3) Stat 05/26/20 19:40 Blood Culture Stat 05/26/20 19:45 Urinalysis and Microscopic Stat Urine Drug Screen, Rapid Stat 05/26/20 21:15 COVID19 -ED/INPAT/OR/L&D Stat Acetaminophen (Tylenol) 650 mg PO Q6HR PRN PRN Reason: Fever/Mild Pain (1-3) Aspirin (Aspirin Ec) 325 mg PO DAILY MIGUEL Atorvastatin Calcium (Lipitor) 40 mg PO BEDTIME MIGUEL Atorvastatin Calcium (Lipitor) 80 mg PO BEDTIME MIGUEL Docusate Sodium (Colace) 100 mg PO BID MIGUEL Last Admin: 05/26/20 22:56 Dose: 100 mg Documented by: PATRICK Donepezil HCl (Aricept) 10 mg PO BEDTIME MIGUEL Sodium Chloride (Normal Saline 0.9%) 1,000 mls @ 150 mls/hr IV CONT MIGUEL Last Infusion: 05/26/20 22:05 Dose: 0 mls/hr Documented by: Infusion: 05/26/20 19:37 Dose: 350 mls/hr Documented by: Admin: 05/26/20 19:28 Dose: 150 mls/hr Documented by: MONA Sodium Chloride (Normal Saline 0.9%) 1,000 mls @ 100 mls/hr IV CONT MIGUEL Last Admin: 05/26/20 22:55 Dose: 100 mls/hr Documented by: PATRICK Lisinopril (Zestril) 10 mg PO BEDTIME MIGUEL Last Admin: 05/26/20 22:56 Dose: 10 mg Documented by: PATRICK Ondansetron HCl (Zofran) 4 mg IV Q8HR PRN PRN Reason: Nausea And Vomiting Discontinued Medications Ceftriaxone Sodium/Dextrose (Rocephin) 1 gm in 50 mls @ 100 mls/hr IV NOW ONE Stop: 05/26/20 19:54 Last Infusion: 05/26/20 21:03 Dose: 0 mls/hr Documented by: Admin: 10/19/20 19:37 Dose: 100 mls/hr Documented by: MONA Labetalol HCl (Trandate) 5 mg IV NOW ONE Stop: 05/26/20 21:59 Last Admin: 05/26/20 22:57 Dose: 5 mg Documented by: PATRICK Vital Signs Vital signs: Vital Signs - 8 hr 05/26/20 18:12 05/26/20 18:16 05/26/20 18:20 Temperature 98.6 F Pulse Rate 71 67 67 Respiratory Rate 13 18 Blood Pressure 189/93 H 189/93 H Pulse Oximetry 96 97 98 05/26/20 18:43 05/26/20 18:45 05/26/20 19:00 Temperature Pulse Rate 70 67 69 Respiratory Rate 18 20 Blood Pressure 184/87 H 194/74 H Pulse Oximetry 96 97 96 05/26/20 19:30 05/26/20 19:31 05/26/20 20:00 Temperature Pulse Rate 71 68 68 Respiratory Rate 23 16 16 Blood Pressure 180/86 H Pulse Oximetry 94 96 97 05/26/20 20:01 05/26/20 20:30 05/26/20 20:31 Temperature Pulse Rate 68 64 65 Respiratory Rate 17 19 16 Blood Pressure 172/86 H 172/88 H Pulse Oximetry 96 96 97 05/26/20 21:00 05/26/20 21:30 Temperature Pulse Rate 65 67 Respiratory Rate 16 19 Blood Pressure 180/92 H 188/91 H Pulse Oximetry 98 98 MDM - Altered Mental Status Lab Data Result diagrams: 05/26/20 18:20 05/26/20 18:20 Labs: Lab Results 05/26/20 05/26/20 05/26/20 Range/Units 18:20 18:20 18:20 WBC 9.5 (4.5-11.0) X10^3/uL RBC 4.90 (4.5-5.9) X10^6/uL Hgb 15.4 (13.5-17.5) g/dL Hct 45.2 (41-53) % MCV 92.3 (80-100) fL MCH 31.4 (26-34) PG MCHC 34.0 (30-36) % RDW 13.4 (11.6-14.8) % Plt Count 314 (150-400) X10^3/uL Neut % (Auto) 63.9 (50-75) % Lymph % (Auto) 27.1 (25-40) % Stanton % (Auto) 6.5 (3-14) % Eos % (Auto) 1.8 L (2-4) % Baso % (Auto) 0.7 (0-2) % Neut # (Auto) 6100 (0587-1899) /uL Lymph # (Auto) 2600 (1560-6592) /uL Stanton # (Auto) 600 (0-900) /uL Eos # (Auto) 200 (0-450) /uL Baso # (Auto) 100 (0-100) /uL PT (10.1-12.7) SECONDS INR (0.9-1.3) APTT (26.4-36.2) SECONDS Sodium (137-145) mmol/L Potassium (3.4-5.1) mmol/L Chloride (98-107) mmol/L Carbon Dioxide (22-32) mmol/L BUN (9-20) mg/dL Creatinine (0.66-1.25) mg/dL Estimated GFR (>60) mL/min BUN/Creatinine Ratio (6-22) Glucose (80-110) mg/dL Lactate (0.7-2.1) mmol/L Calcium (8.4-10.2) mg/dL Total Bilirubin (0.2-1.3) mg/dL AST (17-59) IU/L ALT (<50) IU/L Alkaline Phosphatase (38-126) U/L Ammonia (9-30) umol/L Total Creatine Kinase 47 L (55-170) U/L CK-MB (CK-2) TNP CK-MB (CK-2) Rel Index TNP Troponin I < 0.012 (0.01-0.034) ng/mL NT-Pro-B Natriuret Pep (<125) pg/mL Total Protein (6.3-8.2) g/dL Albumin (3.5-5.0) g/dL Globulin (1.7-4.1) g/dL Albumin/Globulin Ratio (1.0-2.8) Procalcitonin < 0.05 (<0.5) ng/mL TSH (0.47-4.68) uIU/mL Prolactin (3.7-17.9) ng/mL Urine Color Urine Appearance Urine pH (4.5-8.0) Ur Specific [place] (1.000-1.035) Urine Protein (Negative) Urine Glucose (UA) (Negative) g/dL Urine Ketones (NEGATIVE) Urine Occult Blood (Negative) Urine Nitrate (Negative) Urine Bilirubin (NEGATIVE) Urine Urobilinogen (0.2) E.U./dL Ur Leukocyte Esterase (NEGATIVE) Urine RBC (0-5/HPF) Urine WBC (0-5/HPF) Other Crystals Urine Bacteria (None) Ur Culture Indicated? Salicylates (<20) mg/dL U Opiates 300ng/mL cut (Negative) Ur Oxycodone Screen (Negative) Urine Methadone Screen (Negative) Acetaminophen (10-30) ug/mL Ur Barbiturates Screen (Negative) U Tricyclic Antidepress (Negative) Ur Phencyclidine Scrn (Negative) Ur Amphetamines Screen (Negative) U Methamphetamines Scrn (Negative) Ur MDMA Scrn (Ecstasy) (Negative) U Benzodiazepines Scrn (Negative) Urine Cocaine Screen (Negative) U Marijuana (THC) Screen (Negative) Ethyl Alcohol ( - 10) mg/dL COVID-19 PCR (Negative) 05/26/20 05/26/20 05/26/20 Range/Units 18:20 18:20 18:20 WBC (4.5-11.0) X10^3/uL RBC (4.5-5.9) X10^6/uL Hgb (13.5-17.5) g/dL Hct (41-53) % MCV (80-100) fL MCH (26-34) PG MCHC (30-36) % RDW (11.6-14.8) % Plt Count (150-400) X10^3/uL Neut % (Auto) (50-75) % Lymph % (Auto) (25-40) % Stanton % (Auto) (3-14) % Eos % (Auto) (2-4) % Baso % (Auto) (0-2) % Neut # (Auto) (6581-4032) /uL Lymph # (Auto) (3145-3750) /uL Stanton # (Auto) (0-900) /uL Eos # (Auto) (0-450) /uL Baso # (Auto) (0-100) /uL PT 11.2 (10.1-12.7) SECONDS INR 1.0 (0.9-1.3) APTT 40 H D (26.4-36.2) SECONDS Sodium 141 (137-145) mmol/L Potassium 4.1 (3.4-5.1) mmol/L Chloride 101 (98-107) mmol/L Carbon Dioxide 32 (22-32) mmol/L BUN 18 (9-20) mg/dL Creatinine 0.96 (0.66-1.25) mg/dL Estimated GFR > 60.0 (>60) mL/min BUN/Creatinine Ratio 18.8 (6-22) Glucose 114 H (80-110) mg/dL Lactate 2.2 H (0.7-2.1) mmol/L Calcium 9.6 (8.4-10.2) mg/dL Total Bilirubin 0.4 (0.2-1.3) mg/dL AST 34 (17-59) IU/L ALT 36 (<50) IU/L Alkaline Phosphatase 76 (38-126) U/L Ammonia (9-30) umol/L Total Creatine Kinase (55-170) U/L CK-MB (CK-2) CK-MB (CK-2) Rel Index Troponin I (0.01-0.034) ng/mL NT-Pro-B Natriuret Pep (<125) pg/mL Total Protein 8.5 H (6.3-8.2) g/dL Albumin 4.6 (3.5-5.0) g/dL Globulin 3.9 (1.7-4.1) g/dL Albumin/Globulin Ratio 1.2 (1.0-2.8) Procalcitonin (<0.5) ng/mL TSH (0.47-4.68) uIU/mL Prolactin 11.5 (3.7-17.9) ng/mL Urine Color Urine Appearance Urine pH (4.5-8.0) Ur Specific [place] (1.000-1.035) Urine Protein (Negative) Urine Glucose (UA) (Negative) g/dL Urine Ketones (NEGATIVE) Urine Occult Blood (Negative) Urine Nitrate (Negative) Urine Bilirubin (NEGATIVE) Urine Urobilinogen (0.2) E.U./dL Ur Leukocyte Esterase (NEGATIVE) Urine RBC (0-5/HPF) Urine WBC (0-5/HPF) Other Crystals Urine Bacteria (None) Ur Culture Indicated? Salicylates < 1.0 (<20) mg/dL U Opiates 300ng/mL cut (Negative) Ur Oxycodone Screen (Negative) Urine Methadone Screen (Negative) Acetaminophen < 10 L (10-30) ug/mL Ur Barbiturates Screen (Negative) U Tricyclic Antidepress (Negative) Ur Phencyclidine Scrn (Negative) Ur Amphetamines Screen (Negative) U Methamphetamines Scrn (Negative) Ur MDMA Scrn (Ecstasy) (Negative) U Benzodiazepines Scrn (Negative) Urine Cocaine Screen (Negative) U Marijuana (THC) Screen (Negative) Ethyl Alcohol < 10 ( - 10) mg/dL COVID-19 PCR (Negative) 05/26/20 05/26/20 05/26/20 Range/Units 18:20 18:20 18:33 WBC (4.5-11.0) X10^3/uL RBC (4.5-5.9) X10^6/uL Hgb (13.5-17.5) g/dL Hct (41-53) % MCV (80-100) fL MCH (26-34) PG MCHC (30-36) % RDW (11.6-14.8) % Plt Count (150-400) X10^3/uL Neut % (Auto) (50-75) % Lymph % (Auto) (25-40) % Stanton % (Auto) (3-14) % Eos % (Auto) (2-4) % Baso % (Auto) (0-2) % Neut # (Auto) (5664-9683) /uL Lymph # (Auto) (3528-4125) /uL Stanton # (Auto) (0-900) /uL Eos # (Auto) (0-450) /uL Baso # (Auto) (0-100) /uL PT (10.1-12.7) SECONDS INR (0.9-1.3) APTT (26.4-36.2) SECONDS Sodium (137-145) mmol/L Potassium (3.4-5.1) mmol/L Chloride (98-107) mmol/L Carbon Dioxide (22-32) mmol/L BUN (9-20) mg/dL Creatinine (0.66-1.25) mg/dL Estimated GFR (>60) mL/min BUN/Creatinine Ratio (6-22) Glucose (80-110) mg/dL Lactate (0.7-2.1) mmol/L Calcium (8.4-10.2) mg/dL Total Bilirubin (0.2-1.3) mg/dL AST (17-59) IU/L ALT (<50) IU/L Alkaline Phosphatase (38-126) U/L Ammonia 17 (9-30) umol/L Total Creatine Kinase (55-170) U/L CK-MB (CK-2) CK-MB (CK-2) Rel Index Troponin I (0.01-0.034) ng/mL NT-Pro-B Natriuret Pep 28 (<125) pg/mL Total Protein (6.3-8.2) g/dL Albumin (3.5-5.0) g/dL Globulin (1.7-4.1) g/dL Albumin/Globulin Ratio (1.0-2.8) Procalcitonin (<0.5) ng/mL TSH 1.87 (0.47-4.68) uIU/mL Prolactin (3.7-17.9) ng/mL Urine Color Urine Appearance Urine pH (4.5-8.0) Ur Specific [place] (1.000-1.035) Urine Protein (Negative) Urine Glucose (UA) (Negative) g/dL Urine Ketones (NEGATIVE) Urine Occult Blood (Negative) Urine Nitrate (Negative) Urine Bilirubin (NEGATIVE) Urine Urobilinogen (0.2) E.U./dL Ur Leukocyte Esterase (NEGATIVE) Urine RBC (0-5/HPF) Urine WBC (0-5/HPF) Other Crystals Urine Bacteria (None) Ur Culture Indicated? Salicylates (<20) mg/dL U Opiates 300ng/mL cut (Negative) Ur Oxycodone Screen (Negative) Urine Methadone Screen (Negative) Acetaminophen (10-30) ug/mL Ur Barbiturates Screen (Negative) U Tricyclic Antidepress (Negative) Ur Phencyclidine Scrn (Negative) Ur Amphetamines Screen (Negative) U Methamphetamines Scrn (Negative) Ur MDMA Scrn (Ecstasy) (Negative) U Benzodiazepines Scrn (Negative) Urine Cocaine Screen (Negative) U Marijuana (THC) Screen (Negative) Ethyl Alcohol ( - 10) mg/dL COVID-19 PCR (Negative) 05/26/20 05/26/20 05/26/20 Range/Units 19:45 19:45 20:46 WBC (4.5-11.0) X10^3/uL RBC (4.5-5.9) X10^6/uL Hgb (13.5-17.5) g/dL Hct (41-53) % MCV (80-100) fL MCH (26-34) PG MCHC (30-36) % RDW (11.6-14.8) % Plt Count (150-400) X10^3/uL Neut % (Auto) (50-75) % Lymph % (Auto) (25-40) % Stanton % (Auto) (3-14) % Eos % (Auto) (2-4) % Baso % (Auto) (0-2) % Neut # (Auto) (8719-8939) /uL Lymph # (Auto) (6820-4045) /uL Stanton # (Auto) (0-900) /uL Eos # (Auto) (0-450) /uL Baso # (Auto) (0-100) /uL PT (10.1-12.7) SECONDS INR (0.9-1.3) APTT (26.4-36.2) SECONDS Sodium (137-145) mmol/L Potassium (3.4-5.1) mmol/L Chloride (98-107) mmol/L Carbon Dioxide (22-32) mmol/L BUN (9-20) mg/dL Creatinine (0.66-1.25) mg/dL Estimated GFR (>60) mL/min BUN/Creatinine Ratio (6-22) Glucose (80-110) mg/dL Lactate 1.2 (0.7-2.1) mmol/L Calcium (8.4-10.2) mg/dL Total Bilirubin (0.2-1.3) mg/dL AST (17-59) IU/L ALT (<50) IU/L Alkaline Phosphatase (38-126) U/L Ammonia (9-30) umol/L Total Creatine Kinase (55-170) U/L CK-MB (CK-2) CK-MB (CK-2) Rel Index Troponin I (0.01-0.034) ng/mL NT-Pro-B Natriuret Pep (<125) pg/mL Total Protein (6.3-8.2) g/dL Albumin (3.5-5.0) g/dL Globulin (1.7-4.1) g/dL Albumin/Globulin Ratio (1.0-2.8) Procalcitonin (<0.5) ng/mL TSH (0.47-4.68) uIU/mL Prolactin (3.7-17.9) ng/mL Urine Color Yellow Urine Appearance Sl cloudy Urine pH 7.5 (4.5-8.0) Ur Specific [place] 1.015 (1.000-1.035) Urine Protein Negative (Negative) Urine Glucose (UA) Negative (Negative) g/dL Urine Ketones Negative (NEGATIVE) Urine Occult Blood Trace-intact (Negative) Urine Nitrate Negative (Negative) Urine Bilirubin Negative (NEGATIVE) Urine Urobilinogen 0.2 (0.2) E.U./dL Ur Leukocyte Esterase Negative (NEGATIVE) Urine RBC 0-1/hpf (0-5/HPF) Urine WBC 0-1/hpf (0-5/HPF) Other Crystals 1+ amorphous Urine Bacteria None seen (None) Ur Culture Indicated? Cult not indicated Salicylates (<20) mg/dL U Opiates 300ng/mL cut Negative (Negative) Ur Oxycodone Screen Negative (Negative) Urine Methadone Screen Negative (Negative) Acetaminophen (10-30) ug/mL Ur Barbiturates Screen Negative (Negative) U Tricyclic Antidepress Negative (Negative) Ur Phencyclidine Scrn Negative (Negative) Ur Amphetamines Screen Negative (Negative) U Methamphetamines Scrn Negative (Negative) Ur MDMA Scrn (Ecstasy) Negative (Negative) U Benzodiazepines Scrn Negative (Negative) Urine Cocaine Screen Negative (Negative) U Marijuana (THC) Screen Negative (Negative) Ethyl Alcohol ( - 10) mg/dL COVID-19 PCR (Negative) 05/26/20 Range/Units 21:15 WBC (4.5-11.0) X10^3/uL RBC (4.5-5.9) X10^6/uL Hgb (13.5-17.5) g/dL Hct (41-53) % MCV (80-100) fL MCH (26-34) PG MCHC (30-36) % RDW (11.6-14.8) % Plt Count (150-400) X10^3/uL Neut % (Auto) (50-75) % Lymph % (Auto) (25-40) % Stanton % (Auto) (3-14) % Eos % (Auto) (2-4) % Baso % (Auto) (0-2) % Neut # (Auto) (7803-1859) /uL Lymph # (Auto) (0302-4990) /uL Stanton # (Auto) (0-900) /uL Eos # (Auto) (0-450) /uL Baso # (Auto) (0-100) /uL PT (10.1-12.7) SECONDS INR (0.9-1.3) APTT (26.4-36.2) SECONDS Sodium (137-145) mmol/L Potassium (3.4-5.1) mmol/L Chloride (98-107) mmol/L Carbon Dioxide (22-32) mmol/L BUN (9-20) mg/dL Creatinine (0.66-1.25) mg/dL Estimated GFR (>60) mL/min BUN/Creatinine Ratio (6-22) Glucose (80-110) mg/dL Lactate (0.7-2.1) mmol/L Calcium (8.4-10.2) mg/dL Total Bilirubin (0.2-1.3) mg/dL AST (17-59) IU/L ALT (<50) IU/L Alkaline Phosphatase (38-126) U/L Ammonia (9-30) umol/L Total Creatine Kinase (55-170) U/L CK-MB (CK-2) CK-MB (CK-2) Rel Index Troponin I (0.01-0.034) ng/mL NT-Pro-B Natriuret Pep (<125) pg/mL Total Protein (6.3-8.2) g/dL Albumin (3.5-5.0) g/dL Globulin (1.7-4.1) g/dL Albumin/Globulin Ratio (1.0-2.8) Procalcitonin (<0.5) ng/mL TSH (0.47-4.68) uIU/mL Prolactin (3.7-17.9) ng/mL Urine Color Urine Appearance Urine pH (4.5-8.0) Ur Specific [place] (1.000-1.035) Urine Protein (Negative) Urine Glucose (UA) (Negative) g/dL Urine Ketones (NEGATIVE) Urine Occult Blood (Negative) Urine Nitrate (Negative) Urine Bilirubin (NEGATIVE) Urine Urobilinogen (0.2) E.U./dL Ur Leukocyte Esterase (NEGATIVE) Urine RBC (0-5/HPF) Urine WBC (0-5/HPF) Other Crystals Urine Bacteria (None) Ur Culture Indicated? Salicylates (<20) mg/dL U Opiates 300ng/mL cut (Negative) Ur Oxycodone Screen (Negative) Urine Methadone Screen (Negative) Acetaminophen (10-30) ug/mL Ur Barbiturates Screen (Negative) U Tricyclic Antidepress (Negative) Ur Phencyclidine Scrn (Negative) Ur Amphetamines Screen (Negative) U Methamphetamines Scrn (Negative) Ur MDMA Scrn (Ecstasy) (Negative) U Benzodiazepines Scrn (Negative) Urine Cocaine Screen (Negative) U Marijuana (THC) Screen (Negative) Ethyl Alcohol ( - 10) mg/dL COVID-19 PCR Negative (Negative) Point of Care Testing Glucose POC 124 Imaging Data Chest x-ray: Radiologist's Impression: [address] [address] XRay Report Signed Patient: Christine Demarco#: [id number] : 6Acct:[id number] Age/Sex: 65 / MDate of Service: 05/26/20 Loc: ED Accession Number: [id number] Procedure: XR chest 1V Ordering Provider: Kevin Pathak D.O. PROCEDURE: XR CHEST 1V INDICATIONS: weakness TECHNIQUE: One view of the chest was acquired. COMPARISON: [facility], , XR CHEST 1V, 04/10/2018, 13:30 FINDINGS: Surgical changes and devices: None. Lungs and pleura: There is pulmonary vascular congestion. No definite focal infiltrate. No pleural effusions or pneumothorax. Mediastinum: Mediastinal contours appear normal. Heart size is enlarged. Bones and chest wall: No suspicious bony lesions. Overlying soft tissues appear unremarkable. IMPRESSION: Cardiomegaly and pulmonary vascular congestion. No focal infiltrate, pleural effusion or pneumothorax. Dictated by: Bassam Ceron M.D. on 05/26/2020 at 17:57 Approved by: Bassam Ceron M.D. on 05/26/2020 at 17:57 CT scan - head: Radiologist's Impression: Phill Demarco 65 M [address] [address] [address] Scan Report Signed Patient: Phill DemarcoMR#: [id number] : 1955cct:[id number] Age/Sex: 65 / MDate of Service: 05/26/20 Loc: ED Accession Number: [id number] Procedure: CT head/brain wo con Ordering Provider: Kevin Pathak D.O. PROCEDURE: CT HEAD/BRAIN WO CON INDICATIONS: altered mental status, slurring speech, weak NO TPA TECHNIQUE: Noncontrast 4.5 mm thick angled axial sections acquired from the foramen magnum to the vertex, with coronal and sagittal reformats. For radiation dose reduction, the following was used: automated exposure control, adjustment of mA and/or kV according to patient size. COMPARISON: [facility], CT, CT HEAD/BRAIN WO CON, 04/10/2018, 13:28. FINDINGS: Image quality: Excellent. CSF spaces: Basal cisterns are patent. No extra-axial fluid collections. The ventricles are symmetric in size and shape. Brain: Again noted is large right posterior parietal encephalomalacia with areas of dystrophic calcifications not significantly changed in appearance and size from 2018 study. No intracranial bleeds or masses. There is cerebral volume loss for age, with resultant ventricular and sulcal prominence. There are periventricular and deep white matter chronic small vessel ischemic changes. There is intracranial internal carotid artery atherosclerosis. Skull and face: Prior right posterior temporal parietal craniotomy is again seen unchanged from prior study. Sinuses: Visualized sinuses and mastoids are clear. IMPRESSION: 1. No significant changes from previous study. No CT evidence of acute intracranial pathology. 2. Ventricle sizes are not significantly changed from prior study. 3. Stable postsurgical changes from prior right posterior temporal parietal craniotomy with large area of right posterior temporal parietal encephalomalacia. Dictated by: Bassam Ceron M.D. on 05/26/2020 at 18:00 Approved by: Bassam Ceron M.D. on 05/26/2020 at 18:03 [facility] Narrative Medical decision making narrative: Patient went to sleep in normal state of health and awoke with slurring of speech, mild confusion and weakness. Elements of story and exam raise suspicion of stroke, particularly given history of prior CVA. Patient had no fever or specific symptoms to suggest an infectious etiology however elements of exam are more consistent with a more global cause of encephalopathy such as infection, metabolic, etc. He did show some improvement after fluids, but still quite weak. Exam is difficult to to perform and doesn't add much to the story given his prior CVA and residual left sided weakness Discharge Plan Departure Admit Date/Time: 05/26/20 21:49 Admit Provider: Mariangel Alcala
[2020-05-26 18:41] LABS: Add Manual Diff / Slide Review NO; Basophils Absolute Auto 100 /uL (0-100); Basophils Percent Auto 0.7 % (0-2); Eosinophils Absolute Auto 200 /uL (0-450); Eosinophils Percent Auto 1.8 % (2-4); Hematocrit 45.2 % (41-53); Hemoglobin 15.4 g/dL (13.5-17.5); Lymphocytes Absolute Auto 2600 /uL (1100-4500); Lymphocytes Percent Auto 27.1 % (25-40); Mean Corpuscular Hemoglobin 31.4 PG (26-34); Mean Corpuscular Volume 92.3 fL (80-100); Monocytes Absolute Auto 600 /uL (0-900); Monocytes Percent Auto 6.5 % (3-14); Neutrophils Absolute Auto 6100 /uL (1500-7000); Neutrophils Percent Auto 63.9 % (50-75); Platelet Count 314 X10^3/uL (150-400); Red Cell Distribution Width 13.4 % (11.6-14.8); White Blood Cell Count 9.5 X10^3/uL (4.5-11.0)
[2020-05-26 18:44] LABS: Prothrombin Time 11.2 SECONDS (10.1-12.7)
[2020-05-26 18:46] LABS: PTT Partial Thromboplastin Tim 40 SECONDS (26.4-36.2)
[2020-05-26 18:51] LABS: Acetaminophen < 10 ug/mL (10-30); Alanine Aminotransferase 36 IU/L (<50); Albumin 4.6 g/dL (3.5-5.0); Albumin Globulin Ratio 1.2 (1.0-2.8); Alkaline Phosphatase 76 U/L (38-126); Aspartate Aminotransferase 34 IU/L (17-59); BUN Creatinine Ratio 18.8 (6-22); Bilirubin Total 0.4 mg/dL (0.2-1.3); Blood Urea Nitrogen 18 mg/dL (9-20); Calcium 9.6 mg/dL (8.4-10.2); Carbon Dioxide 32 mmol/L (22-32); Chloride 101 mmol/L (98-107); Creatine Kinase 47 U/L (55-170); Estimated Glomerular Filt Rate > 60.0 mL/min (>60); Ethanol (ETOH) < 10 mg/dL; Globulin 3.9 g/dL (1.7-4.1); Glucose 114 mg/dL (80-110); HEMOLYSIS < 15 (0-50); Potassium 4.1 mmol/L (3.4-5.1); Salicylate < 1.0 mg/dL (<20); Sodium 141 mmol/L (137-145); Total Protein 8.5 g/dL (6.3-8.2)
[2020-05-26 18:51] LABS: Ammonia (NH3) 17 umol/L (9-30)
[2020-05-26 18:52] LABS: Lactate (Lactic Acid) 2.2 mmol/L (0.7-2.1)
[2020-05-26 19:02] LABS: Troponin I < 0.012 ng/mL (0.01-0.034)
[2020-05-26 19:07] LABS: Prolactin 11.5 ng/mL (3.7-17.9)
[2020-05-26] MEDS: SODIUM CHLORIDE 0.9% 1,000 ML 150 ML IV (19:28)
[2020-05-26] MEDS: CEFTRIAXONE 1 GM/50 ML FROZ.PIGGY IV (19:37)
[2020-05-26 19:41] LABS: Procalcitonin < 0.05 ng/mL (<0.5)
[2020-05-26 19:58] LABS: Bacteria Urine None Seen
[2020-05-26 20:12] LABS: Appearance Urine UA SL CLOUDY; Bilirubin Urine UA NEGATIVE (NEGATIVE); Color Urine UA YELLOW; Glucose Urine UA NEGATIVE (Negative); Ketones Urine UA NEGATIVE (NEGATIVE); Leukocyte Esterase Urine UA NEGATIVE (NEGATIVE); Nitrite Urine UA NEGATIVE (Negative); Occult Blood Urine UA TRACE-INTACT (Negative); Protein Urine UA NEGATIVE (Negative); Specific Gravity Urine UA 1.015 (1.000-1.035); UR Morphine/Opiate cutoff 300 Negative (Negative); Ur Creatinine Normal (Normal); Ur Specific Gravity Normal (Normal); Urine Amphetamines Negative (Negative); Urine Barbiturates Negative (Negative); Urine Benzodiazepines Negative (Negative); Urine Cocaine Negative (Negative); Urine MDMA Negative (Negative); Urine Methadone Negative (Negative); Urine Methamphetamines Negative (Negative); Urine Oxycodone Negative (Negative); Urine Phencyclidine Negative (Negative); Urine Tetrahydrocannabinol Negative (Negative); Urine Tricyclic Antidepressant Negative (Negative); Urine pH Normal (Normal); Urobilinogen Urine UA 0.2 E.U./dL (0.2); pH Urine UA 7.5 (4.5-8.0)
[2020-05-26 20:23] LABS: Other Crystals Urine 1+ Amorphous; RBC Urine 0-1/HPF (0-5/HPF); WBC Urine 0-1/HPF (0-5/HPF)
[2020-05-26 20:23] LABS: Reflexed Lactate in 2 Hours Y
[2020-05-26 20:24] LABS: Culture Indicated Urine Cult Not Indicated
[2020-05-26 20:27] LABS: Thyroid Stimulating Hormone 1.87 uIU/mL (0.47-4.68)
[2020-05-26 21:06] LABS: Lactate 2HR (Lactic Acid Rflx) 1.2 mmol/L (0.7-2.1)
[2020-05-26 21:15] LABS: NT-proBNP (BNP-Adult 18+) 28 pg/mL (<125)
[2020-05-26 21:44] LABS: COVID19 -Nasal RAPID Negative (Negative)
[2020-05-26] MEDS: SODIUM CHLORIDE 0.9% 1,000 ML 100 ML IV (22:55)
[2020-05-26] MEDS: lisinopriL 10 MG TABLET PO (22:56)
[2020-05-26] MEDS: DOCUSATE 100 MG CAPSULE PO (22:56)
[2020-05-26] MEDS: LABETALOL 20 MG/4 ML SYRINGE 5 MG IV (22:57)
--- NOTE | 2020-05-26 23:21 | PC.NURSE ---
Patient admitted from ER with at bedside. Admission assessment information gathered from who is primary caregiver of patient. Per , patient's symptoms had returned to baseline since admission except for slightly slurred and slow speech. Left sided weakness was observed- patient was able to squeeze left hand and wiggle left toes but to a lesser extent than right side. Patient knows name, birthday, and that he was in a hospital but was otherwise unoriented. Per , patient uses wheelchair at home and she helps him to transfer to and from wheelchair using a walker. Patient is incontinent and wearing a brief. Heart sounds NSR, lungs sound clear Belly is large and round but soft and non-tender. Patient has no complaints of pain. NS is running at 100ml/hr. BP is elevated, IV labetalol was ordered and given as well as PO lisinipril. Bed alarm is on, call light within reach- unsure if patient is able to make needs known using call light. Per , patient no longer takes cholesterol medication due to liver function- I attempted to contact provider Fredrick, and passed information to receiving operations supervisor 2nd shift RN.
[2020-05-27] VITALS (10 sets, daily range): BP systolic 140–159; BP diastolic 77–98; PULSE 63–79; RESP 12–21; TEMP 36.2–36.5; O2SAT 94–96
--- NOTE | 2020-05-27 01:05 | P.HP_ITS ---
History of Present Illness History of Present Illness Date Patient Seen: 05/26/20 Time Patient Seen: 21:00 Chief complaint: Slurred speech, weakness Narrative: Phill Demarco is a 65 male nonsmoker with history of HTN, hyperlipidemia, brain cancer treated with radiation in 1976, dementia and prior left sided CVA with right sided deficits in 2018 presents with his whom has concern about a possible stroke. He went to bed last night and was in his usual state of health and woke up today at about 1300 which is normal for him, and she noted him to be profoundly weak in both of his lower extremities, confused and was slurring his speech. She stated that he had a hard time sitting up and kept falling over either backwards or to his left side. He does not take any blood thinners, has had no injury and was at baseline when he went to bed. He denies runny nose, sore throat or cough. He has had no chest pain or shortness of breath. He denies any fever chills. He denies nausea, vomiting or diarrhea. He denies any change in medications or diet. In 2018, he was admitted for what was eventually diagnosed as a right pontine CVA and has significant left sided deficits. He was discharged to rehab during that admission. At that time his echo indicated a normal EF of 60-65% with no abnormalities. He is afebrile, blood pressure 159/91, heart rate 79, respiratory rate 14, oxygen saturation of 93% on room air, he weighs 90.7 kg with a BMI of 29.5. CBC is essentially within normal limits, BMP is largely within normal limits with exception of a mildly elevated glucose of 114, lactate is negative, liver enzymes are within normal limits and he isn't normal ammonia, troponin was negative does have a mildly elevated of protein at 8.5, TSH is 1.87, UA is negative for a UTI, and on his urine drug screen was negative. COVID-19 PCR is negative. 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 (Acute) History of brain cancer (Acute) Hyperlipemia (Acute) Left pontine cerebrovascular accident (Acute) Surgical History H/O craniotomy (Acute) H/O hernia repair (Acute) Family & Social History Family History Mother Myocardial infarct Father CVA (cerebral vascular accident) Social History: household members spouse Prior Living Arrangements Apartment/Condo Safety & Behavioral: Feels Safe in Current Yes Environment Been Physically Hurt or No Threatened By a Person Tobacco & Substance use: Smoking Status Never smoker alcohol intake never alcohol intake frequency other Substance Use Type does not use Meds Home Medications and Allergies Home Medications Medication Instructions Recorded Confirmed Type donepezil 10 mg PO BEDTIME #0 04/30/16 05/26/20 History lisinopril 20 mg PO BEDTIME #0 11/22/17 05/26/20 History loratadine 10 mg PO BEDTIME 04/10/18 05/26/20 History multivitamin 1 tab PO BEDTIME 04/10/18 05/26/20 History acetaminophen 650 mg PO Q6HR PRN #30 tab 04/16/18 05/26/20 Rx metoprolol tartrate 25 mg DAILY 05/26/20 05/26/20 History Allergies Allergy/AdvReac Type Severity Reaction Status Date / Time No Known Drug Allergies Allergy Verified 05/26/20 18:23 Review of Systems Review of Systems ROS: Yes All systems reviewed with the patient and are negative except as otherwise documented Exam Vital Signs (past 8 hours): - 05/26/20 18:12 05/26/20 18:16 05/26/20 18:20 Temperature 98.6 F Pulse Rate 71 67 67 Respiratory Rate 13 18 Blood Pressure 189/93 H 189/93 H Pulse Oximetry 96 97 98 05/26/20 18:43 05/26/20 18:45 05/26/20 19:00 Temperature Pulse Rate 70 67 69 Respiratory Rate 18 20 Blood Pressure 184/87 H 194/74 H Pulse Oximetry 96 97 96 05/26/20 19:30 05/26/20 19:31 05/26/20 20:00 Temperature Pulse Rate 71 68 68 Respiratory Rate 23 16 16 Blood Pressure 180/86 H Pulse Oximetry 94 96 97 05/26/20 20:01 05/26/20 20:30 05/26/20 20:31 Temperature Pulse Rate 68 64 65 Respiratory Rate 17 19 16 Blood Pressure 172/86 H 172/88 H Pulse Oximetry 96 96 97 05/26/20 21:00 05/26/20 21:30 05/26/20 22:56 Temperature Pulse Rate 65 67 82 Respiratory Rate 16 19 Blood Pressure 180/92 H 188/91 H 182/90 H Pulse Oximetry 98 98 05/26/20 22:57 05/26/20 23:00 05/26/20 23:31 Temperature 98.2 F Pulse Rate 82 79 Respiratory Rate 14 Blood Pressure 182/90 H 159/91 H Pulse Oximetry 93 93 Oxygen Delivery Method Room Air Oxygen Flow Rate 0 Narrative Exam Narrative: Gen: Alert, oriented, ill appearing 65 y.o. 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 Objective Labs Result Diagrams: 05/26/20 18:20 05/26/20 18:20 Labs: Laboratory Results - last 24 hr 05/26/20 05/26/20 05/26/20 18:20 18:20 18:20 WBC 9.5 RBC 4.90 Hgb 15.4 Hct 45.2 MCV 92.3 MCH 31.4 MCHC 34.0 RDW 13.4 Plt Count 314 Neut % (Auto) 63.9 Lymph % (Auto) 27.1 [place] % (Auto) 6.5 Eos % (Auto) 1.8 L Baso % (Auto) 0.7 Neut # (Auto) 6100 Lymph # (Auto) 2600 [place] # (Auto) 600 Eos # (Auto) 200 Baso # (Auto) 100 PT INR APTT Sodium Potassium Chloride Carbon Dioxide BUN Creatinine Estimated GFR BUN/Creatinine Ratio Glucose Lactate Calcium Total Bilirubin AST ALT Alkaline Phosphatase Ammonia Total Creatine Kinase 47 L CK-MB (CK-2) TNP CK-MB (CK-2) Rel Index TNP Troponin I < 0.012 NT-Pro-B Natriuret Pep Total Protein Albumin Globulin Albumin/Globulin Ratio Procalcitonin < 0.05 TSH Prolactin Urine Color Urine Appearance Urine pH Ur Specific [place] Urine Protein Urine Glucose (UA) Urine Ketones Urine Occult Blood Urine Nitrate Urine Bilirubin Urine Urobilinogen Ur Leukocyte Esterase Urine RBC Urine WBC Other Crystals Urine Bacteria Ur Culture Indicated? Salicylates U Opiates 300ng/mL cut Ur Oxycodone Screen Urine Methadone Screen Acetaminophen Ur Barbiturates Screen U Tricyclic Antidepress Ur Phencyclidine Scrn Ur Amphetamines Screen U Methamphetamines Scrn Ur MDMA Scrn (Ecstasy) U Benzodiazepines Scrn Urine Cocaine Screen U Marijuana (THC) Screen Ethyl Alcohol COVID-19 PCR 05/26/20 05/26/20 05/26/20 18:20 18:20 18:20 WBC RBC Hgb Hct MCV MCH MCHC RDW Plt Count Neut % (Auto) Lymph % (Auto) [place] % (Auto) Eos % (Auto) Baso % (Auto) Neut # (Auto) Lymph # (Auto) [place] # (Auto) Eos # (Auto) Baso # (Auto) PT 11.2 INR 1.0 APTT 40 H D Sodium 141 Potassium 4.1 Chloride 101 Carbon Dioxide 32 BUN 18 Creatinine 0.96 Estimated GFR > 60.0 BUN/Creatinine Ratio 18.8 Glucose 114 H Lactate 2.2 H Calcium 9.6 Total Bilirubin 0.4 AST 34 ALT 36 Alkaline Phosphatase 76 Ammonia Total Creatine Kinase CK-MB (CK-2) CK-MB (CK-2) Rel Index Troponin I NT-Pro-B Natriuret Pep Total Protein 8.5 H Albumin 4.6 Globulin 3.9 Albumin/Globulin Ratio 1.2 Procalcitonin TSH Prolactin 11.5 Urine Color Urine Appearance Urine pH Ur Specific [place] Urine Protein Urine Glucose (UA) Urine Ketones Urine Occult Blood Urine Nitrate Urine Bilirubin Urine Urobilinogen Ur Leukocyte Esterase Urine RBC Urine WBC Other Crystals Urine Bacteria Ur Culture Indicated? Salicylates < 1.0 U Opiates 300ng/mL cut Ur Oxycodone Screen Urine Methadone Screen Acetaminophen < 10 L Ur Barbiturates Screen U Tricyclic Antidepress Ur Phencyclidine Scrn Ur Amphetamines Screen U Methamphetamines Scrn Ur MDMA Scrn (Ecstasy) U Benzodiazepines Scrn Urine Cocaine Screen U Marijuana (THC) Screen Ethyl Alcohol < 10 COVID-19 PCR 05/26/20 05/26/20 05/26/20 18:20 18:20 18:33 WBC RBC Hgb Hct MCV MCH MCHC RDW Plt Count Neut % (Auto) Lymph % (Auto) [place] % (Auto) Eos % (Auto) Baso % (Auto) Neut # (Auto) Lymph # (Auto) [place] # (Auto) Eos # (Auto) Baso # (Auto) PT INR APTT Sodium Potassium Chloride Carbon Dioxide BUN Creatinine Estimated GFR BUN/Creatinine Ratio Glucose Lactate Calcium Total Bilirubin AST ALT Alkaline Phosphatase Ammonia 17 Total Creatine Kinase CK-MB (CK-2) CK-MB (CK-2) Rel Index Troponin I NT-Pro-B Natriuret Pep 28 Total Protein Albumin Globulin Albumin/Globulin Ratio Procalcitonin TSH 1.87 Prolactin Urine Color Urine Appearance Urine pH Ur Specific [place] Urine Protein Urine Glucose (UA) Urine Ketones Urine Occult Blood Urine Nitrate Urine Bilirubin Urine Urobilinogen Ur Leukocyte Esterase Urine RBC Urine WBC Other Crystals Urine Bacteria Ur Culture Indicated? Salicylates U Opiates 300ng/mL cut Ur Oxycodone Screen Urine Methadone Screen Acetaminophen Ur Barbiturates Screen U Tricyclic Antidepress Ur Phencyclidine Scrn Ur Amphetamines Screen U Methamphetamines Scrn Ur MDMA Scrn (Ecstasy) U Benzodiazepines Scrn Urine Cocaine Screen U Marijuana (THC) Screen Ethyl Alcohol COVID-19 PCR 05/26/20 05/26/20 05/26/20 19:45 19:45 20:46 WBC RBC Hgb Hct MCV MCH MCHC RDW Plt Count Neut % (Auto) Lymph % (Auto) [place] % (Auto) Eos % (Auto) Baso % (Auto) Neut # (Auto) Lymph # (Auto) [place] # (Auto) Eos # (Auto) Baso # (Auto) PT INR APTT Sodium Potassium Chloride Carbon Dioxide BUN Creatinine Estimated GFR BUN/Creatinine Ratio Glucose Lactate 1.2 Calcium Total Bilirubin AST ALT Alkaline Phosphatase Ammonia Total Creatine Kinase CK-MB (CK-2) CK-MB (CK-2) Rel Index Troponin I NT-Pro-B Natriuret Pep Total Protein Albumin Globulin Albumin/Globulin Ratio Procalcitonin TSH Prolactin Urine Color Yellow Urine Appearance Sl cloudy Urine pH 7.5 Ur Specific [place] 1.015 Urine Protein Negative Urine Glucose (UA) Negative Urine Ketones Negative Urine Occult Blood Trace-intact Urine Nitrate Negative Urine Bilirubin Negative Urine Urobilinogen 0.2 Ur Leukocyte Esterase Negative Urine RBC 0-1/hpf Urine WBC 0-1/hpf Other Crystals 1+ amorphous Urine Bacteria None seen Ur Culture Indicated? Cult not indicated Salicylates U Opiates 300ng/mL cut Negative Ur Oxycodone Screen Negative Urine Methadone Screen Negative Acetaminophen Ur Barbiturates Screen Negative U Tricyclic Antidepress Negative Ur Phencyclidine Scrn Negative Ur Amphetamines Screen Negative U Methamphetamines Scrn Negative Ur MDMA Scrn (Ecstasy) Negative U Benzodiazepines Scrn Negative Urine Cocaine Screen Negative U Marijuana (THC) Screen Negative Ethyl Alcohol COVID-19 PCR 05/26/20 21:15 WBC RBC Hgb Hct MCV MCH MCHC RDW Plt Count Neut % (Auto) Lymph % (Auto) [place] % (Auto) Eos % (Auto) Baso % (Auto) Neut # (Auto) Lymph # (Auto) [place] # (Auto) Eos # (Auto) Baso # (Auto) PT INR APTT Sodium Potassium Chloride Carbon Dioxide BUN Creatinine Estimated GFR BUN/Creatinine Ratio Glucose Lactate Calcium Total Bilirubin AST ALT Alkaline Phosphatase Ammonia Total Creatine Kinase CK-MB (CK-2) CK-MB (CK-2) Rel Index Troponin I NT-Pro-B Natriuret Pep Total Protein Albumin Globulin Albumin/Globulin Ratio Procalcitonin TSH Prolactin Urine Color Urine Appearance Urine pH Ur Specific [place] Urine Protein Urine Glucose (UA) Urine Ketones Urine Occult Blood Urine Nitrate Urine Bilirubin Urine Urobilinogen Ur Leukocyte Esterase Urine RBC Urine WBC Other Crystals Urine Bacteria Ur Culture Indicated? Salicylates U Opiates 300ng/mL cut Ur Oxycodone Screen Urine Methadone Screen Acetaminophen Ur Barbiturates Screen U Tricyclic Antidepress Ur Phencyclidine Scrn Ur Amphetamines Screen U Methamphetamines Scrn Ur MDMA Scrn (Ecstasy) U Benzodiazepines Scrn Urine Cocaine Screen U Marijuana (THC) Screen Ethyl Alcohol COVID-19 PCR Negative Assessment & Plan Assessment & Plan narrative: Suspected CVA, acute, present on admission -Cardiac telemetry -NIH scoring and neuro checks q shift -full strength ASA as per his usual home dose, dual antiplatelet not indicated due high NIH score -MR stroke scheduled for 05/27 -Complete Echo for 05/27 -PT/OT/ST evaluation Hypertension, acute with an admission bp of 189/93, present on admission -Allow for permissive hypertension of 220/110 HR 60 to allow for brain perfusion. He was given a one time dose of labetolol 5 mg IV -Continue home dose of lisinpril 10 mg po and metoprolol tartrate 10 mg po daily HLD, -Lipid panel, pending -Patient's declined medication due to low liver enzymes Dementia, chronic, present on admission -Continue home dose of donepezil 10 mg po at bedtime Risk stratification -Fasting lipid panel pending -A1c pending, last one done in 2018 VTE prophylaxis: Wells risk score: 0 Enoxaparin 40 mg subQ daily Consults: none Patient is admitted under inpatient status with expected length of stay greater than 2 midnights due to severity of presenting symptoms, risk of adverse event, and complexity of treatment plan. FEN: IV saline lock, dysphagea diet, BMP and magnesium in the am. Dispo: unknown at this time Code Status: DNR/DNI as discussed with Yaima, his and surrogate COVID-19 COVID-19 status: Negative Result date/Date tested (Pos, Neg/Pending): 05/26/20 Scores NIHSS Level of Conciousness: Alert, keenly responsive Ask month/age: Answers both questions correctly. Open/close eyes, close hand: Performs both tasks correctly Best gaze horizontal: Partial gaze palsy, can be overcome by finger tracking, head turning Visual talley: No visual loss Facial palsy: Normal symetrical movement Left arm drift: Some effort against gravity, cannot maintain, drifts down to bed Right arm drift: No effort against gravity Left leg drift: Drifts down, not to bed Right leg drift: No movement Limb ataxia: Present in one limb Sensory on face/arms/legs: Normal, no sensory loss Best language: No aphasia, normal Dysarthria: Mild to mod,some slurring Extinction or inattention: No abnormality Total NIH Stroke scale score: 13 Wells' Criteria for PE Clinical signs and symptoms of DVT: No PE is #1 Dx or equally likely: No Heart rate > 100: No Immobilization at least 3 days or surg in previous 4 weeks: No History of PE or DVT: No Hemoptysis: No Malignancy w/Treatment within 6 months or palliative: No Wells' PE Score total: 0 Quality Stroke Contraindication Not Initiating IV-Tpa: Not indicated Onset of Symptoms Date: 05/26/20 Onset of Symptoms Time: 13:00 Symptom Onset Unknown: No Contraindication Antithromb by Day Two: Not indicated Rehab Services Assessed: Rehabilitation therapy VTE Deep Vein Thrombosis/Pulmonary Embolism Present on Admission: No
--- NOTE | 2020-05-27 01:18 | DI.ECHO.S_ITS ---
[place] [facility]---------+ [facility] +---------+ : : [address] : [place] [address] : : : : [id number] : : : : Phone: [phone] Echocardiogram Report + + :Name: DILEEP STEPHENS Study Date: 05/27/2020 Height: 69 in : :[facility] Weight: 200 lb : : Gender: Male BSA: 2.1 m2 : :: 1955 Age: 65 yrs BP: 152/90 mmHg: :Reason For Study: CVA : :Ordering Physician: NIKHIL MIDDLETON : :[employer] Performed By: Zoë Fields : :Referring: NIKHIL MIDDLETON : + + Interpretation Summary The ejection fraction is estimated to be 60-65%. Injection of contrast documented no interatrial shunt. There is no significant valvular heart disease. Procedure: A two-dimensional transthoracic echocardiogram with color flow and Doppler was performed. The study quality was technically adequate. Comparison is made with the echocardiogram of 04/12/2018. The injection was performed through an intravenous line in the right arm. A saline contrast injection was performed to assess for cardiac shunting. Left Ventricle: The left ventricle is normal in size. Proximal septal thickening is noted. The ejection fraction is estimated to be 60-65%. Left ventricular wall motion is normal. Diastolic parameters suggest probable normal left ventricular diastolic function and normal filling pressures. Right Ventricle: The right ventricle is normal in size and function. Atria: Both atria are normal in size. There is no Doppler evidence for an interatrial shunt. Injection of contrast documented no interatrial shunt. Mitral Valve: The mitral valve is normal in structure and function. There is trace mitral regurgitation. Aortic Valve: The aortic valve is trileaflet. The aortic valve opens well. There is no hemodynamically significant valvular aortic stenosis. No aortic regurgitation is present. Tricuspid Valve: The tricuspid valve is not well visualized, but is grossly normal. There is trace tricuspid regurgitation. Pulmonary artery pressures cannot be estimated because of the lack of a measurable TR jet velocity. Pulmonic Valve: The pulmonic valve is not well visualized. There is trace pulmonic regurgitation. Great Vessels: The aortic root is normal size. The dimensions of the ascending aorta are normal. The inferior vena cava was not well visualized. Pericardium/ Pleura There is no pericardial effusion. There is no pleural effusion. MMode/2D Measurements & Calculations LVIDd: 4.8 cm LVOT diam: 2.1 cm LVIDs: 3.5 cm Ao root diam: 3.2 cm FS: 27.7 % asc Aorta Diam: 3.2 cm EPSS: 0.18 cm Ao Arch Diam (Prox Trans): 3.1 cm IVSd: 0.89 cm LVPWd: 0.90 cm LV campos. diameter/BSA (cm/m^2): 2.3 LV sys. diameter/BSA (cm/m^2): 1.7 LA A2 area: 15.4 cm2 RA long axis: 4.1 cm LA A4 area: 12.3 cm2 RA area: 12.3 cm2 LA length (vol): 4.4 cm RA vol: 31.3 ml LA vol: 36.4 ml RA : 15.2 ml/m2 LA vol index: 17.6 ml/m2 RVD1 (basal): 3.2 cm TAPSE: 2.3 cm Doppler Measurements & Calculations Ao V2 max: 100.6 cm/sec LVOT Max Ector: 93.3 cm/sec Ao V2 mean: 77.0 cm/sec LV V1 max P.5 mmHg Ao max P.0 mmHg LV V1 VTI: 20.9 cm Ao mean P.6 mmHg LEOLA(I,D): 3.0 cm2 Ao V2 VTI: 24.6 cm LEOLA(V,D): 3.3 cm2 sev ratio: 0.85 LEOLA indexed to BSA (cm^2/m^2): 1.5 MV E max ector: 71.4 cm/sec PA V2 max: 63.2 cm/sec MV A max ector: 60.2 cm/sec PA V2 mean: 43.0 cm/sec MV E/A: 1.2 PA mean P.86 mmHg Med Peak E' Ector: 6.4 cm/sec PA pr(Accel): 31.0 mmHg E/E' med: 11.1 Lat Peak E' Ector: 8.3 cm/sec E/E' lat: 8.6 E/e' average: 9.9 MV dec time: 0.20 sec SV(LVOT): 74.3 ml Reading Physician:03:35 PM
[2020-05-27 05:19] LABS: Add Manual Diff / Slide Review NO; Basophils Absolute Auto 0 /uL (0-100); Basophils Percent Auto 0.3 % (0-2); Eosinophils Absolute Auto 200 /uL (0-450); Eosinophils Percent Auto 3.2 % (2-4); Hematocrit 40.7 % (41-53); Hemoglobin 13.8 g/dL (13.5-17.5); Lymphocytes Absolute Auto 3500 /uL (1100-4500); Lymphocytes Percent Auto 46.6 % (25-40); Mean Corpuscular Hemoglobin 31.3 PG (26-34); Mean Corpuscular Volume 92.3 fL (80-100); Monocytes Absolute Auto 600 /uL (0-900); Monocytes Percent Auto 7.6 % (3-14); Neutrophils Absolute Auto 3200 /uL (1500-7000); Neutrophils Percent Auto 42.3 % (50-75); Platelet Count 264 X10^3/uL (150-400); Red Blood Cell Count 4.42 X10^6/uL (4.5-5.9); Red Cell Distribution Width 13.5 % (11.6-14.8); White Blood Cell Count 7.5 X10^3/uL (4.5-11.0)
[2020-05-27 05:29] LABS: BUN Creatinine Ratio 16.9 (6-22); Blood Urea Nitrogen 12 mg/dL (9-20); Calcium 8.7 mg/dL (8.4-10.2); Carbon Dioxide 27 mmol/L (22-32); Chloride 106 mmol/L (98-107); Cholesterol 271 mg/dL (140-199); Estimated Glomerular Filt Rate > 60.0 mL/min (>60); Glucose 95 mg/dL (80-110); HDL Cholesterol 35 mg/dL (40-60); HEMOLYSIS < 15 (0-50); LDL Cholesterol Calculated 179 mg/dL (<100); Magnesium 2.1 mg/dL (1.6-2.3); Potassium 3.8 mmol/L (3.4-5.1); Sodium 138 mmol/L (137-145); Triglycerides 283 mg/dL (35-150)
[2020-05-27 05:55] LABS: Hemoglobin A1C% w Est Avg Glu 5.9 % (4.0-6.0)
--- NOTE | 2020-05-27 06:11 | PC.NURSE ---
Addendum entered by Sasha Garcia R.N. 05/27/20 06:14: Patient and his spouse, Yaima, refusing Atorvastatin which has been prescribed. Yaima states patient's liver enzymes were effected by medication when he took it in the past. GRACIELA Smart has been notified and wishes for medication to remain on his eMar at this time. Patient refused last night's dose of Atorvastatin. Original Note: django developer note: Patient with NIH of 7 throughout shift with no neurological changes. Patient with history of previous CVA with left sided weakness. Patient remains weak on left side, see NIH charting. Patient AO x 2, but forgetful. Patient also with history of dementia. Patient with VSS throughout shift, and multiple large incontinent episodes. Patient with very little sleep throughout the night. IV fluids remain infusing. Lungs CTA, patient on RA. Patient turned and repositioned every 2 hours for comfort and to prevent skin breakdown. Currently, patient sleeping. No distress noted. Will continue to monitor.
[2020-05-27] MEDS: SODIUM CHLORIDE 0.9% 1,000 ML 100 ML IV (09:00)
[2020-05-27] MEDS: ENOXAPARIN 40 MG/0.4 ML SYRINGE SUBCUT (09:20)
[2020-05-27] MEDS: METOPROLOL IR 25 MG TABLET PO (09:20)
[2020-05-27] MEDS: DOCUSATE 100 MG CAPSULE PO ×2 (09:20→20:22)
[2020-05-27] MEDS: ASPIRIN EC 325 MG TABLET PO (09:20)
--- NOTE | 2020-05-27 10:58 | ST.IPIE ---
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 Mariangel Alcala Reason for Referral Stroke protocol Setting Assessment Location Acute Care Visit Type Note Type Initial evaluation Next Note Type Next Note Type Treatment Note Patient Information Identification Type Name,ID Card History Per H&P: Phill Demarco is a 65 male nonsmoker with history of HTN, hyperlipidemia, brain cancer treated with radiation in 1976, dementia and prior a right pontine CVA CVA with left sided deficits in 2018 presented with his who had concern about a possible stroke. He went to bed last night and was in his usual state of health and woke up today at about 1300 which is normal for him, and she noted him to be profoundly weak in both of his lower extremities, confused and was slurring his speech. She stated that he had a hard time sitting up and kept falling over either backwards or to his left side. Subjective Observations Prior to TECHNICAL CABLE JOINTER arrival, Nsg woke the pt and positioned him to upright in bed, where he was upon TECHNICAL CABLE JOINTER arrival. The pt was conversant with slow but clear speech. He stated he was not hungry or thirsty and wanted to go back to sleep. He did agree, however, to small amounts of oral trials. Throughout the evaluation, the pt was conversant albeit repetitive and exhibited slow language processing, both expressive and receptive. Speech was slow but 100% intelligible. He asked if he was in [place], and when told he was in [place] and asked if he knew where in [place] he was, he said, Yes, by the truck stop. When asked, Is this place the truck stop?, he responded, No, it's where they fix them. The pt did ask for his by name more than once, and asked the TECHNICAL CABLE JOINTER's name repeatedly, then re- introducing himself as Tony. At times he appears mildly agitated due to a desire to go back to sleep. Reported by Patient Current Diet Dysphagia mechanical,Thin liquids Baseline Feeding Method Needs some assistance Patient Questionnaire No Objective Assessment Mental Status Alert,Responsive,Cooperative, Confused Oral Integrity WFL Dentition Within normal limits Lip Function Within normal limits Observation of Lips at Rest Symmetrical Lip Retraction Left sided weakness/Drooping Tongue Protrusion Deviates to the left Tongue Lateralization Reduced strength Jaw Opening Within normal limits Jaw Closing Within normal limits Observations of Hard/Soft Palate Within normal limits,Reduced strength/ROM of soft palate elevation Nasality Within normal limits Phonation Within normal limits Respiratory Sufficiency Within normal limits Comment Oral Peripheral Exam was limited d/t pt participation. Pt stated, This is a waste of time. Food and Liquid Trials Position During Assessment Upright (90 degrees) Liquids Trialed Thin Solids Trialed Dysphagia Mechanical, Mechanical Soft Administration Type Cup single sip,Cup consecutive sips,Self-feeding Oral Impairment Within functional limits Oral Phase Comments Slowed oral prep phase with mixed mastication (rotary, munching and mashing) with both solids and liquids. Minimal oral residue of scrambled eggs which cleared when pt prompted to perform dry swallow or with liquid wash. Pharyngeal Impairment Within functional limits Pharyngeal Phase Comments No overt s/sx of aspiration were observed with limited trials. Pt declined extensive trials. Comment Unable to fully assess endurance d/t limited participation. Appears to be WFL. Results The pt exhibited no overt s/sx of aspiration with limited trials. He was able to self- feed but will likely require setup assistance, and distant supervision is recommended to ensure consistent self-feeding ability. Speech was slow but 100% intelligible. Language processing appears to be slow but expressive and receptive language skills were mostly appropriate with occasional episodes of confusion and forgetfulness, consistent with dementia diagnosis. Findings Swallowing Function Within functional limits Contributing Factors to Swallow Reduced alertness or attention Impairment ,Reduced oral strength/ coordination/sensation Prognosis Good Based on Cognitive status,Family support,Comorbidities Recommendations Instrumental Assessment No Swallowing Treatment Yes Frequency F/U 1-2x for ongoing assessment Recommended Solids Mechanical Soft Recommended Liquids Thin Safety Precautions/Swallowing 1 to 1 distant supervision, Recommendations Feed only when alert,Reduce distractions,Remain upright ( 90 degrees) during all oral intake,Upright position at least 30 minutes after meals, Small bites and sips when eating,Set-up assistance, Strict oral care after intake Medication Recommendations As Tolerated Discharge Recommendations Home Comments with family support Education Patient/Caregiver Education Described results of evaluation,Patient expressed understanding of evaluation, Patient requires further education/training,Family/ caregivers require further education/training Goals Short-term Goals 1. The pt will participate in further evaluation of swallow safety, as well as speech and language skills, to promote swallow safety and highest level of communication and to guide POC. Long-term Goals 1. The pt will tolerate least restrictive diet to meet his nutrition and hydration needs. 2. The pt will demonstrate speech and language skills sufficient to express his wants and needs and participate in medical decisions.
--- NOTE | 2020-05-27 12:39 | CM.DANOTE ---
DCP Assessment: EMR reviewed: Patient is a 65 yr old male who was admitted for possible CVA- Patient has dementia. CM met with patient at the bed side and attempted to explain role. Patient was agitated with CM and was very forgetful during meeting. patient was alert but not oriented to place or time. patient currently lives with his Yaima who is his primary career guidance counselor and there adult son helps out with patients care as well. patient in completely dependent for all ADLs accept feeding himself. Patients and son provide all the driving and transportation needs. Patient refused MRI, PT and OT today but did participate with Speech. CM called patients Yaima at [phone] and let her know about his refusal. she stated she will becoming in to the hospital around 2:30 and will help with the patient getting the needed tests and therapies. Cm asked patients about D/C planning and patients stated she wants to bring him home and doesn't want him going to a SNF- SNF approval would be challenging with [place] [employer] as primary insurance. patients 's plan is to bring him home at D/C. I: [place] [facility] and self pay Plan: D/C home with and son when medically stable. No Identified D/C planning needs noted at this time but Cm department will follow up after MRI, PT and OT to determine needs if any. Jackelin English RN
--- NOTE | 2020-05-27 12:41 | PT-IP ANOTE ---
checked on pt for PT eval and pt refused. educated on importance, risks/benefits of PT but pt continues to refuse. pt is easily agitated and stated that he moves just fine and does not need PT. will check back later.
--- NOTE | 2020-05-27 13:45 | PT.IIE ---
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 Bed mobility is mod to max a from a hospital bed. Activities of Daily Living and IADL's Pt was dependent for all ADLs. Social History Household Members spouse,children Living Arrangements Apartment/Condo Number of Floors (Floors) One Floor Number of Stairs To Enter/Railing? ramp to enter Home Environment Standard Height Toilet,Tub/ Shower Home Equipment Front Wheel Walker,Manual Wheelchair,Tub Transfer Bench, Hand Held Shower,Hospital Bed, Grab Bars In Shower Employment Status Retired Additional Social History Comment Pt is retired and lives with his and son. M1 PT/OT-IP Prior Functional Status Start: 05/27/20 14:39 Freq: NEEDED Status: Active Protocol: Document 05/27/20 13:45 AB (Rec: 05/27/20 14:56 AB [id number]) Medical Review Prior Functional Status Medical History Reviewed Yes Communication able to make needs known Mobility and Gait spouse stated that pt needs assistance with all mobilities requiring 1-2 person assist. pt is non-ambulatory and usually uses a w/c for mobility but needs assistance with w/c mobility. pt uses a FWW to transfers. Bed mobility: spouse stated that she usually gives her hand/arm to pt and pt pull on her with his LUE and pt sits up. pt usually tends to slide down per spouse Social History Household Members spouse,children Living Arrangements Apartment/Condo Number of Floors (Floors) One Floor Number of Stairs To Enter/Railing? ramp to enter Home Environment Standard Height Toilet,Tub/ Shower Home Equipment Front Wheel Walker,Manual Wheelchair,Tub Transfer Bench, Hand Held Shower,Grab Bars In Shower Additional Social History Comment stated that pt does not use the toilet due to incontinence M2 PT-IP Current Condition Start: 05/27/20 14:39 Freq: NEEDED Status: Active Protocol: Document 05/27/20 13:45 AB (Rec: 05/27/20 14:56 AB [id number]) Physical Therapy Current Condition Current Condition Evaluation Date 05/27/20 Treatment Diagnosis weakness; CVA Onset Date 05/26/20 Precautions Other Precautions falls M3 PT-IP Subjective Start: 05/27/20 14:39 Freq: NEEDED Status: Active Protocol: Document 05/27/20 13:45 AB (Rec: 05/27/20 14:56 AB [id number]) Subjective Physical Therapy Visit Type Type Initial Evaluation Visit Start Time 13:45 Visit Stop Time 14:22 Total Visit Minutes 37 Notes checked on pt earlier today and refused PT. Spouse in room with pt this afternoon and pt agreeable to participate. Number of FINISH MENDER Visits 0 M4 PT-IP Mobility and Gait Start: 05/27/20 14:39 Freq: NEEDED Status: Active Protocol: Document 05/27/20 13:45 AB (Rec: 05/27/20 14:56 AB [id number]) PT-Bed Mobility Assessment Supine to Sit Supine to Sit Maximum Assistance,1 Person Assistance,Bedrails PT-Transfer Assessment Sit to and From Stand Sit to and from Stand Maximum Assistance,2 Person Assistance,Use of Upper Extremities Equipment Transfer Assistive Device Gait Belt,Front Wheeled Walker Orthotic/Prosthetic Devices or Brace: No Transfers Transfer Destination Chair Transfer Technique Stand Pivot Transfer Ability Level of Assist Maximum Assistance,2 Person Assistance,Use of Upper Extremities Comments Mobility Comments completed supine to sit max A with spouse assisting. spouse demonstrated how she usually assists pt with supine to sit. pt requiring min to mod A for sitting balance with increase posterior trunk lean. completed sit to stand max A and max cues and requires max A x 2 for standing balance; increase posterior trunk lean and LE sliding forward despite assistance and cues provided. pt instructed to sit back on chair. Pt has to be cleaned up and change his brief. asked nurse /NAC to assist. completed sit <>stand x 3 reps max A x 2 and max cues for upright posture requiring max A x 2 to maintain stability while NAC assisting with hygiene care and brief change. pt continues to have posterior trunk lean and increase lateral side lean to the L. pt completed pivot transfer to chair max A x 2 using FWW with increase extensor tone and pt requiring max A to move LLE during transfers and for weight shifting. noted increase L knee hyperextension during standing. positioned pt on chair. Left pt with NAC . asked spouse regarding AFO and stated that pt used one before but pt was complaining of pain when using AFO and has not been using it. stated that he only used it when he has to walk but pt has not walked for a while. Gait Assessment Comments Gait Comments unable PT-Balance Assessment Sitting Balance and Reactions Static Sitting Balance Ability Poor Dynamic Sitting Balance Ability Poor Standing Balance and Reactions Static Standing Balance Ability Poor Dynamic Standing Balance Ability Poor Device Used FWW M5 PT-IP Objective Assessments Start: 05/27/20 14:39 Freq: NEEDED Status: Active Protocol: Document 05/27/20 13:45 AB (Rec: 05/27/20 14:56 AB [id number]) Orientation Orientation/Cognition Level of Alertness Alert Orientation Name,Month,Year Language Function Ability Hard of Hearing Safety Awareness Decreased Safety Awareness Memory Description Short Term Impaired Gross Range of Motion Lower Extremity ROM Assessment Within Functional Limits Strength Lower Extremity Strength Assessment Left Impaired Hip 3-/5 Knee 3-/5 Ankle 1/5 Muscle Tone Muscle Tone WNL No Comments Muscle Tone Comments increase extensor tone during standing M6 PT-IP Treatment Start: 05/27/20 14:39 Freq: NEEDED Status: Active Protocol: Document 05/27/20 13:45 AB (Rec: 05/27/20 14:56 AB [id number]) Physical Therapy Treatment Education Education Provided Safety M7 PT-IP Assessment and Plan Start: 05/27/20 14:39 Freq: NEEDED Status: Active Protocol: Document 05/27/20 13:45 AB (Rec: 05/27/20 14:56 AB [id number]) PT Summary Assessment and Plan Potential Rehabilitation Potential Fair Status of Condition at Evaluation Evolving Summary Impairments Pain,ROM,Strength,Balance, Coordination,Sensation,Tone, Cognition,Bed Mobility, Transfers,Gait,Activity Tolerance Assessment Summary pt requiring 2 person max A and max cues with all tasks. spouse in room during mobility and stated that she still wants pt to go home. Caregiver training will be conducted if appropriate and pt will need homehealth PT if he goes home. will continue to assess progress. Goals Bed Mobility Goal Moderate Assistance Transfer Goal Maximal Assistance,Front Wheeled Walker Days to Meet Goals 5 Frequency of Treatment Frequency Of Treatment Once a Day Treatment Plan Physical Therapy Treatment Plan Bed Mobility Training,Transfer Training,Gait Training, Therapeutic Exercise,Balance Retraining,Discharge Planning, Hot or Cold Pack,Neuromuscular Re-ed,Coordination Retraining ,Manual Therapy Recommendations To Nursing Amount of Assist Needed Mechanical Lift Discharge Recommendations PT Discharge Recommendations Home with 28/02 Assist,Home Health,SNF Rehab Transportation Needs at Discharge Wheelchair/Cabulance
--- NOTE | 2020-05-27 14:21 | OT.IP.EVAL ---
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 (Acute) History of brain cancer (Acute) Hyperlipemia (Acute) Left pontine cerebrovascular accident (Acute) Surgical History (Last Reviewed 05/27/20 @ 01:21 by GRACIELA Smart) H/O craniotomy (Acute) H/O hernia repair (Acute) Occupational Therapy Inpatient Evaluation/Re-Eval M1 PT/OT-IP Prior Functional Status Start: 05/27/20 14:23 Freq: NEEDED Status: Active Protocol: Document 05/27/20 14:24 CGR (Rec: 05/27/20 14:49 CGR [id number]) Medical Review Prior Functional Status Medical History Reviewed Yes Communication Pt is an effective verbal communicator but is [place] with hearing aides Mobility and Gait Pt is able to transfer with a FWW and significant 1-2 person assist at home. Bed mobility is mod to max a from a hospital bed. Activities of Daily Living and IADL's Pt was dependent for all ADLs. Social History Household Members spouse,children Living Arrangements Apartment/Condo Number of Floors (Floors) One Floor Number of Stairs To Enter/Railing? ramp to enter Home Environment Standard Height Toilet,Tub/ Shower Home Equipment Front Wheel Walker,Manual Wheelchair,Tub Transfer Bench, Hand Held Shower,Hospital Bed, Grab Bars In Shower Employment Status Retired Additional Social History Comment Pt is retired and lives with his and son. M2 OT-IP Current Condition Start: 05/27/20 14:23 Freq: Status: Active Protocol: Document 05/27/20 14:24 CGR (Rec: 05/27/20 14:49 CGR [id number]) Occupational Therapy Current Condition Current Condition Evaluation Date 05/27/20 Treatment Diagnosis Possible CVA Diagnosis Onset Date 05/26/20 M3 OT- IP Subjective and Pain Start: 05/27/20 14:23 Freq: Status: Active Protocol: Document 05/27/20 14:24 CGR (Rec: 05/27/20 14:49 CGR [id number]) OT- Subjective Occupational Therapy Visit Type Type Initial Evaluation Visit Start Time 13:45 Visit Stop Time 14:21 Total Visit Minutes 36 Notes co-treat with P.T. OT Pain Assessment Pain When Pain Assessed At Rest Pain Present Pain Present Denied Pain M4 OT- IP ADL's Start: 05/27/20 14:23 Freq: Status: Active Protocol: Document 05/27/20 14:24 CGR (Rec: 05/27/20 14:49 CGR [id number]) OT [id number] Comments OT Self-Feeding Comments not meal time OT ADL-Grooming Comments OT Grooming Comments not performed OT ADL-Oral Care Comments Oral Care Comments not performed OT ADL-Dressing General Eval Lower Body Dressing Ability Total Assistance Areas Needing Assistance Socks OT ADL-Toileting General Evaluation Toileting Ability Total Assistance Areas Needing Assistance Manage Clothing,Perform Perineal Hygiene Comments OT Toileting Comments change of brief in standing OT ADL-Bathing Comments OT Bathing Comments not performed M5 OT- IP IADL's Start: 05/27/20 14:23 Freq: Status: Active Protocol: Document 05/27/20 14:24 CGR (Rec: 05/27/20 14:49 CGR [id number]) OT-Instrumental Activities of Daily Living Deficits IADL Deficits Identified Deficits Home Safety Awareness Awareness of Need for Assistance at Home Decreased Awareness Ability to Problem Solve Emergency Unable to Problem Solve Situations Medication Management Medication Management Caregiver Administers Money Management Money Management Caregiver Provides Assistance Meal Preparation Meal Preparation Caregiver Provides Assist Accredited Legal Secretary Accredited Legal Secretary Caregiver Provides Assist Driving Driving Comments Pt does not drive. M6 OT- IP Functional Cognition Start: 05/27/20 14:23 Freq: Status: Active Protocol: Document 05/27/20 14:24 CGR (Rec: 05/27/20 14:49 CGR [id number]) Cognitive Factors Limiting Selfcare Function Cognitive Ability Level of Alertness Alert,Confusional State Patient Orientation Name Attention Span Ability Unable to Focus,Unable to Sustain Attention Ability to Follow Commands Able to Follow One Step Commands with Increased Time, Able to Follow One Step Commands with Repetition Cognitive Comments Cognitive Assessment Comments Pt with clear cognitive deficits. Pt states he is at a gas station. Per , pt is at his baseline for cognition. OT- Vision and Hearing OT- Hearing Assessment OT- Hearing Assessment Hearing Impaired,Use of Hearing Aids OT- Vision Assessment Visual Acuity Glasses All The Time Visual Attentiveness WFL M7 OT- IP Mobility and Balance Start: 05/27/20 14:23 Freq: Status: Active Protocol: Document 05/27/20 14:24 CGR (Rec: 05/27/20 14:49 CGR [id number]) OT- Bed Mobility Assessment Supine to Sit Supine to Sit Assist Maximum Assistance Scooting Scooting to Edge of Bed Maximum Assistance OT-Transfer Assessment Sit to and From Stand Sit to and from Stand Maximum Assistance,2 Person Assistance Transfers Transfer Ability Maximum Assistance,2 Person Assistance Technique Transfer Destination Bed,Chair Transfer Technique Stand Step Pivot Devices Transfer Assistive Devices Gait Belt,Front Wheeled Walker OT- Balance Assessment Sitting Balance and Reactions Static Sitting Balance Ability Poor Dynamic Sitting Balance Ability Poor M8 OT- IP Objective Assessments Start: 05/27/20 14:23 Freq: Status: Active Protocol: Document 05/27/20 14:24 CGR (Rec: 05/27/20 14:49 CGR [id number]) OT Gross Range of Motion Upper Extremity Range of Motion Assessment Left Impaired ROM Impairments L shld and hand with limitation. OT Strength Upper Extremity Strength Assessment Right Impaired Comments Strength Comments Pt demonstrates 3+/5 to the LUE but with uncoordinated movements. RUE 4+/5 OT- Coordination Assessment Upper Extremity Finger to Nose Test Left UE Impaired Finger Tapping Test Left UE Impaired OT-Muscle Tone Assessment Muscle Tone WNL No OT Sensation Assessment Edema Edema Absent M9 OT- IP Assessment and Plan Start: 05/27/20 14:23 Freq: Status: Active Protocol: Document 05/27/20 14:24 CGR (Rec: 05/27/20 14:49 CGR [id number]) OT Summary Assessment and Plan Potential Rehabilitation Potential Fair Analytic Complexity at Evaluation High Summary OT Impairments Range of Motion,Strength, Balance,Coordination,Tone, Functional Cognition, Functional Mobility,Self- Feeding,Grooming,Dressing, Toileting,Bathing,Toilet Transfers,Shower Transfers, Activity Tolerance Progress Towards Goals Goals Met Assessment Summary Pt presents as a high complexity evaluation s/p admit with possible new onset CVA. Pt is dependent for ADLs at baseline and mod to max a for transfers at baseline. Pt is likley at or close to his baseline. No further OT needs at this time. Frequency of Treatment Frequency Of Treatment Discharge Discharge Recommendations OT Discharge Recommendations Home with 28/02 Assist Transportation Needs at Discharge Wheelchair/Cabulance
--- NOTE | 2020-05-27 14:32 | PC.NURSE ---
Transfer Note Pt to room 221 from room 231 at 1425. Transferred after PT/OT via recliner chair. All belongings with pt including hearing aids, glasses, and clothing. Pt's in room for transfer, max 2 person assist by PT/OT, PT recommending Yossi lift for transfers (see their note), pt's (Yaima) reports pt is at baseline for transfers. NIH 8 on AM assessment, no slurred speech noted. Weakness to left extremities, oriented to self only, sometimes to place. Forgetful and requiring frequent reorientation. Pt reporting I just want to be left alone and sleep this AM, refused MRI, refused AM PT/OT, and notified. MRI to be reattempted this afternoon. Chair alarm on and call light within reach.
--- NOTE | 2020-05-27 14:35 | DI.MRI.S_ITS ---
PROCEDURE: MR HEAD/BRAIN WO CON INDICATIONS: r/o stroke TECHNIQUE: Noncontrast axial T1 spin echo, axial T2 fast spin echo, sagittal and axial FLAIR, coronal T2 fast spin echo, axial gradient echo, axial diffusion and ADC through the brain. COMPARISON: [facility], CT, CT HEAD/BRAIN WO CON, 05/26/2020, 18:33. [facility], MR, MR HEAD/BRAIN WO/W CON, 04/11/2018, 16:39. [facility], CT, CT ANGIO HEAD AND NECK, 04/10/2018, 15:06. [facility], MR, BRAIN WITHOUT CONTRAST, 11/23/2017, 11:22. FINDINGS: Image quality: Excellent. The ventricular system and cortical sulci demonstrate atrophy, consistent for the patient's stated age. There are areas of increased T2/FLAIR signal intensity within the periventricular and subcortical white matter. 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 There is no acute intra-or extra axial fluid collection. No acute hemorrhage, mass lesion or midline shift. Brainstem is unremarkable. There is a small focus of restricted diffusion within the left subinsular region. Globes are symmetrical. Sinuses are aerated. Osseous structures are intact. IMPRESSION: 1. Small focus of restricted diffusion within the left subinsular region most suggestive of subacute ischemia. No superimposed hemorrhage. 2. Extensive atrophy and chronic microvascular ischemic change, greater than expected for patient's stated age. Dictated by: Amber Amaya M.D. on 05/27/2020 at 17:01 Approved by: Amber Amaya M.D. on 05/27/2020 at 17:06
--- NOTE | 2020-05-27 16:34 | PC.NURSE ---
Addendum entered by Lane Gayle R.N. 05/27/20 17:01: 1700 back from mri Original Note: 1634 TAKEN TO MRI
[2020-05-27] MEDS: lisinopriL 10 MG TABLET PO (20:22)
[2020-05-27] MEDS: ATORVASTATIN 20 MG TABLET 10 MG PO (20:22)
[2020-05-27] MEDS: DONEPEZIL 5 MG TABLET 10 MG PO (20:27)
[2020-05-28] VITALS (8 sets, daily range): BP systolic 137–183; BP diastolic 89–103; PULSE 72–78; RESP 16–20; TEMP 36.3–37.8; O2SAT 94–96
[2020-05-28 06:35] LABS: Add Manual Diff / Slide Review NO; BUN Creatinine Ratio 9.1 (6-22); Basophils Absolute Auto 0 /uL (0-100); Basophils Percent Auto 0.6 % (0-2); Blood Urea Nitrogen 7 mg/dL (9-20); Calcium 9.1 mg/dL (8.4-10.2); Carbon Dioxide 27 mmol/L (22-32); Chloride 106 mmol/L (98-107); Eosinophils Absolute Auto 300 /uL (0-450); Eosinophils Percent Auto 3.1 % (2-4); Estimated Glomerular Filt Rate > 60.0 mL/min (>60); Glucose 98 mg/dL (80-110); HEMOLYSIS < 15 (0-50); Hematocrit 44.3 % (41-53); Hemoglobin 14.9 g/dL (13.5-17.5); Lymphocytes Absolute Auto 3100 /uL (1100-4500); Lymphocytes Percent Auto 37.4 % (25-40); Magnesium 2.1 mg/dL (1.6-2.3); Mean Corpuscular HGB Conc 33.6 % (30-36); Mean Corpuscular Volume 92.2 fL (80-100); Monocytes Absolute Auto 600 /uL (0-900); Monocytes Percent Auto 6.9 % (3-14); Neutrophils Absolute Auto 4300 /uL (1500-7000); Platelet Count 282 X10^3/uL (150-400); Potassium 3.9 mmol/L (3.4-5.1); Red Cell Distribution Width 13.5 % (11.6-14.8); Sodium 140 mmol/L (137-145); White Blood Cell Count 8.2 X10^3/uL (4.5-11.0)
[2020-05-28] MEDS: METOPROLOL IR 25 MG TABLET PO (09:39)
[2020-05-28] MEDS: DOCUSATE 100 MG CAPSULE PO ×2 (09:39→20:10)
[2020-05-28] MEDS: ASPIRIN EC 325 MG TABLET PO (09:39)
--- NOTE | 2020-05-28 11:03 | ST.IPDYTX ---
Visit Care Team Role Provider Type Kevin Pathak DO Emergency Provider Physician Referring Provider Specialty: Emergency Medicine Address: [address] [place] [address], [id number] Email: [email or web address] Saini Admit Provider Physician Attending Provider Specialty: Internal Medicine Address: [address] [place] [address], [id number] Email: [email or web address] GENERAL CARGO CLERK Dysphagia Treatment GENERAL CARGO CLERK Dysphagia Treatment Start: 05/28/20 10:51 Freq: Status: Active Protocol: Document 05/28/20 10:51 TLC (Rec: 05/28/20 11:01 TLC [email or web address]) Dysphagia Treatment Session Time Total Visit Minutes 35 Setting Assessment Location Acute Care Visit Type Note Type Treatment Note Patient Information Subjective Observations Saw patient on two occasions this AM. Once at 7:30 as patient was just waking up and not maintaining alertness, and again at 10:30 when patient was much more alert and was present in room. Patient's reports patient is not a morning person. Treatment Liquids Trialed Thin Administration Type Dependent Feeding Oral Strategies Upright at 90 degrees, Controlled Bite/Sip Size, Alternate Liquids/Solids Treatment Activities Patient consumed thin liquids from cup without difficulty. Able to self-adminster. Did not observed patient with solid trials today. Per , patient needs set-up assistance and eats a mechanical soft diet at baseline, but has needed increased assistance with feeding over the last few days . Discussed patient's speech which his reports is improving, but still somewhat slurred. Patient has history of dysarthria post-CVA in 2018 for which he received ~3 weeks of home health speech therapy prior to d/c due to improvement. Patient's states she does not feel speech therapy is needed at this time. Patient is communicating wants/needs clearly with slightly slurred, but intelligible speech. Slow reponse time and confusion are consistent with patient's baseline of dementia. Assessment Patient Response to Treatment Good Assessment of Improvement Patient is at baseline level for swallowing and cognition, though speech remains somewhat slurred. Patient appears much more alert and responsive later in the morning compared to when waking up at 7:30 am. Diet Recommendations Recommendations Continue Current Diet Liquids Order Thin Diet Order Dysphagia Mechanical Medication Recommendations As Tolerated Additional Dietary Needs 1:1 Assistance,Encourage to Self-Feed Treatment Plan Placement Recommendation after Discharge Home Appropriate for Continued Therapy No Therapy Recommendations Patient at baseline for cognition and swallowing. Mild dysarthria persists; however, speech is intelligible. Recommend dysarthria speaking strategies (slow rate, over articulation) as needed. Reviewed safe swallowing strategies as posted at bedside with who verbalized understanding.
[2020-05-28] MEDS: ENOXAPARIN 40 MG/0.4 ML SYRINGE SUBCUT (11:34)
--- NOTE | 2020-05-28 11:40 | PT.IPTN ---
Addendum entered and electronically signed by Sofía Chu, GARAGE ATTENDANT 05/28/20 13:41: Pt had chair alarm on before left with all needs and call light in reach. Original Note: Current Diagnoses Cerebral infarction, unspecified (05/26/20) Physical Therapy Treatment Note M2 PT-IP Current Condition Start: 05/27/20 14:39 Freq: NEEDED Status: Active Protocol: Document 05/27/20 13:45 AB (Rec: 05/27/20 14:56 AB [email or web address]) Physical Therapy Current Condition Current Condition Evaluation Date 05/27/20 Treatment Diagnosis weakness; CVA Onset Date 05/26/20 Precautions Other Precautions falls M3 PT-IP Subjective Start: 05/27/20 14:39 Freq: NEEDED Status: Active Protocol: Document 05/28/20 11:14 SP (Rec: 05/28/20 12:24 SP [email or web address]) Subjective Physical Therapy Visit Type Type Treatment Note Visit Start Time 11:14 Visit Stop Time 11:40 Total Visit Minutes 26 Notes in room with MOLDER PIPE COVERING when arrived, she and MOLDER PIPE COVERING provided physical assist during tx needed. Number of GARAGE ATTENDANT Visits 1 Physical Therapy Visit Comments Patient Comments Pt agreeable to working with therapy and getting up in chair. M4 PT-IP Mobility and Gait Start: 05/27/20 14:39 Freq: NEEDED Status: Active Protocol: Document 05/28/20 11:14 SP (Rec: 05/28/20 12:24 SP [email or web address]) PT-Bed Mobility Assessment Rolling Type of Rolling Log Rolling,Bilateral Level of Assist Maximal Assistance,1 Person Assistance Supine to Sit Supine to Sit Maximum Assistance,2 Person Assistance,Bedrails Scooting Scooting to Edge of Bed Moderate Assistance PT-Transfer Assessment Sit to and From Stand Sit to and from Stand Maximum Assistance,2 Person Assistance,Use of Upper Extremities Equipment Transfer Assistive Device Gait Belt,Front Wheeled Walker Orthotic/Prosthetic Devices or Brace: No Transfers Transfer Destination Chair Transfer Technique stand to stand, stand pivot w/ FWW Transfer Ability Level of Assist Moderate Assistance,Maximum Assistance,1 Person Assistance ,2 Person Assistance,Use of Upper Extremities Comments Mobility Comments Pt was in L sidelying with and MOLDER PIPE COVERING assisting with personal hygiene needs when arrived, agreeable to working with therapy, including caregiver training. Supine BLE exercises: min A for LLE heel slide, hip abd, self ankle pumps. Min A x1 for rolling L while using bed rail with RUE and RLE WB on bed, lateral pelvic scoot Max A x1 with cuing and min A LLE bent stationary positioning, Max A for rolling R x1 person, R sidelying to sitting Max A of 2 with support by pull of LUE and GARAGE ATTENDANT at upper trunk Mod A x1 with education provided that LUE not strong, more beneficial support at upper back on R to assist righting trunk, while patient self RUE WB on bed, scoot Mod a for trunk balance, sitting at EOB sBA. Sit<>stand with Max A of 1, Mod A of 1 BUE on FWW and SBA of MOLDER PIPE COVERING for safety (is used to, difficult to change motor plan). Pt able to stand approx 2 min with cuing for maintaining upright posture before seated rest. SPT using fWW Max A of 2 ( front and L side) and Mod A of 3rd person from behind: heavy WB BUE on fWW, RLE scoot reposition, LLE locked and was unable to reposition and staff unable to assist, FWW required Max A to reposition. Max A of 2 to descent in to chair. Pt able to scoot back in chair using RUE and BLE with support at anterior knees and Max cuing lean forward with posterior scoot. Pt was reclind in chair with call light and all needs in reach. Educated recommending further skilled PT and SNF at this time to progress in strength and functional mobility toward PLOF for safety, and patient verbalized understanding. Nurse and in room when left. Gait Assessment Comments Gait Comments unable PT-Balance Assessment Sitting Balance and Reactions Static Sitting Balance Ability Fair Dynamic Sitting Balance Ability Poor Standing Balance and Reactions Static Standing Balance Ability Poor Dynamic Standing Balance Ability Poor Device Used FWW M5 PT-IP Objective Assessments Start: 05/27/20 14:39 Freq: NEEDED Status: Active Protocol: Document 05/27/20 13:45 AB (Rec: 05/27/20 14:56 AB [id number]) Orientation Orientation/Cognition Level of Alertness Alert Orientation Name,Month,Year Language Function Ability Hard of Hearing Safety Awareness Decreased Safety Awareness Memory Description Short Term Impaired Gross Range of Motion Lower Extremity ROM Assessment Within Functional Limits Strength Lower Extremity Strength Assessment Left Impaired Hip 3-/5 Knee 3-/5 Ankle 1/5 Muscle Tone Muscle Tone WNL No Comments Muscle Tone Comments increase extensor tone during standing M6 PT-IP Treatment Start: 05/27/20 14:39 Freq: NEEDED Status: Active Protocol: Document 05/28/20 11:14 SP (Rec: 05/28/20 12:24 SP [email or web address]) Physical Therapy Treatment Exercises Exercises Ankle Pumps,Heel Slides,Supine Hip Abduction,Short Arc Quads Knee ROM Measurement approx 0-110 deg (AAROM, Min A w/stab positioning) Education Education Provided Safety M7 PT-IP Assessment and Plan Start: 05/27/20 14:39 Freq: NEEDED Status: Active Protocol: Document 05/28/20 11:14 SP (Rec: 05/28/20 12:24 SP [email or web address]) PT Summary Assessment and Plan Potential Rehabilitation Potential Fair Status of Condition at Evaluation Evolving Summary Impairments Pain,ROM,Strength,Balance, Coordination,Sensation,Tone, Cognition,Bed Mobility, Transfers,Gait,Activity Tolerance Assessment Summary pt requiring 2 person max A bed mobility and sit to stand using FWW, 3 persons step pivot transferring using FWW and max cues with all tasks. Spouse and MOLDER PIPE COVERING provided physical assist fredis torres GARAGE ATTENDANT educated spouse and patient the amount of assist needed at this time recommending continued skilled therapy to assist progress in strength and functional mobility, with patient and spouse understanding. Will continue to assess progress. At this time recommending nursing transfer using mechanical lift for safety. Goals Bed Mobility Goal Moderate Assistance Transfer Goal Maximal Assistance,Front Wheeled Walker Days to Meet Goals 5 Frequency of Treatment Frequency Of Treatment Once a Day Treatment Plan Physical Therapy Treatment Plan Bed Mobility Training,Transfer Training,Gait Training, Therapeutic Exercise,Balance Retraining,Discharge Planning, Hot or Cold Pack,Neuromuscular Re-ed,Coordination Retraining ,Manual Therapy Other Recommendations and Next Treatment progress transfers- 2 assist Focus required for manual transfer, continue to advance strengthening (AROM and AAROM) for affected L side. Recommendations To Nursing Amount of Assist Needed Mechanical Lift Discharge Recommendations PT Discharge Recommendations SNF Rehab Transportation Needs at Discharge Wheelchair/Cabulance
--- NOTE | 2020-05-28 12:13 | PC.NURSE ---
Addendum entered by Geena Hernandez R.N. 05/28/20 14:54: Patients temp 98.6., bp 130s/.103. is aware of patients blood pressure elevation. Addendum entered by Geena Hernandez R.N. 05/28/20 13:58: Patient is sitting up in chair, at side. He denies pain or discomfort. Patient does lean to the side when he is sitting or lying down, even when propped up with pillows. Resting now. Original Note: Patient agitated this morning, he kept saying that he just wanted to be left alone. Explained to patient that he is in the hospital and we are trying to help and give him good care. He will often apologize after he realizes he is short. He has been heplocked, his is here now and she is his caregiver at home. He is a 3 max assist to get up into chair at this time. Staff will use reid lift if needed. Patient has some aphagia when speaking, his smile is symmetrical. He has left arm drift and left leg drift. He is unable to keep his l.leg or l.arm up for any length of time. He scored a 9 on his NIH stroke scale. Patient did not know where he was when asked this morning. Took medications whole with water. He is on a mechanical soft diet with thin liquids and has been tolerating this well. His is helping him with lunch now.
--- NOTE | 2020-05-28 12:19 | DIET.PN ---
Dietary Progress Note Assessment: 65y M admitted for suspected CVA c pMhx of brain cancer and previous CVA referred to nutrition for weight loss and reduced appetite. Per pts , pt began gaining weight after first stroke in 2018, got up to 260# and has lost 60# unintentionally since Aug 27 (23% in 10mo, severe). She says he has been eating about 40% of his usual food amount since that time. Pt eats large breakfast but not much more throughout the day. Usual breakfast is [employer] c scrambled eggs and sellers. Pt currently being seen by speech therapy and assigned [facility] soft/thin which is his baseline since last stroke. 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 Pts continues to offer small meals and snacks throughout the day and has water or other beverages within reach at all times. HT: 175.2cm WT: 90.7kg UBW: 118kg BMI: 29.5 Labs: A1c 5.9 preDM, TC 271 H, LDL 179 H, HDL 35 L, TG 283 H MNA: 7 malnourished Abran: 16 at risk for skin breakdown Nutrition Diagnosis: Severe Chronic PCM r/t reduced appetite aeb pts reports intake 40% of usual for 1y, 23% unintentional weight loss in 1 y (severe), pt has hx of radiation induced dementia and CVA. Interventions: 1. Recc ONS Glucerna once daily in the afternoon to support low appetite while being mindful of preDM and to promote weight stability. Diet Order: Dysphagia mech soft/thin EER: 2,250kcal (25kcal/kg to level out weight loss), 108g PRO (1.2g/kg per PCM to preserve muscle mass) Monitoring/Evaluations: ONS tolerance
--- NOTE | 2020-05-28 13:52 | CM.DPNOTE ---
Addendum entered by SHEILA Barboza 05/28/20 14:10: According to RN Lon, patient now being switched to inpatient status as of time of admission. Original Note: DCP Cont Therapy team currently recommending SNF; patient requiring 3 person assist in room at this time. Met w/patient, spouse Yaima and Dr Avina in patient's room to review POC/DCP. Spouse was in room when therapy team was moving patient and spouse explains that on patient's bad days at home it takes a lot to move him, so that is not new... Patient's adult son available to assist spouse as needed. Although, patient is requiring more assist than when he got admitted and Yaima admits she cannot pay for SNF out of pocket so will likely take patient home w/HH Yaima further explains that she had been in contact [facility] about [facility]osp[facility] and Yaima asks Dr Avina about pt's current prognosis after this CVA ? Dr Avina suggests Palliative Care consult today if available. Yaima appreciative of this. Palliative Care consult pending today; DC will likely be home w/HH vs Hospice. This EAR SPECIALIST hopeful to contact [place] [facility] time permitting to coordinate care and services before patient's DC; possibly tomorrow 05.29.20 F2F signed today if HH needed SHEILA Barboza
--- NOTE | 2020-05-28 17:18 | P.CONS_ITS ---
History of Present Illness Consult details Date Patient Seen: 05/28/20 Time Patient Seen: 16:35 Chief complaint: Slurred speech, weakness Reason for consult: Palliative Medicine Consultation Requesting provider: Lucie Avina Narrative: Reason for consultation: Palliative medicine consultation received from Dr. Avina regarding this 65-year-old unfortunate gentleman who presented to the emergency department 05/26/2020 when his activated EMS for evaluation of her 's worsening confusion, slurred speech, inability to sit up, and his acutely worsening weakness requiring 2 person assist to wheelchair. reported to the emergency room team that her had gone to sleep the previous night in his normal state of deconditioned health, and that he woke up approximately 1:00 p.m. with these symptoms. Of note, patient has past medical history of right pontine CVA and has significant left sided deficits. He was discharged to rehab during that admission. H&P indicates that at that time his, echo indicated a normal EF of 60-65% with no abnormalities. As a result of the previous stroke, late effects include left sided hemiplegia and worsening cognition due to dementia. [facility] from a brain tumor that was diagnosed during his 2 year stint in the [facility] remotely in his right occipital lobe. reports that he is unable to learn new things, and he has not worked since his service. Patient is wheelchair-bound at baseline. Patient was admit to the medical floor for further workup of his symptoms. Patient has since been diagnosed with likely subacute stroke in the left subinsular region. He has been evaluated by PT, and recommendations have been made for aggressive, restorative therapies at a local halfway facility. CT of Brain 05/26 negative for acute abnormality. MRI of Brain 05/27 IMPRESSION: 1. Small focus of restricted diffusion within the left subinsular region most suggestive of subacute ischemia. No superimposed hemorrhage. 2. Extensive atrophy and chronic microvascular ischemic change, greater than expected for patient's stated age. Past medical history: Dementia, hyperlipidemia, hypertension, stroke, brain tumor remotely. Social history: Patient and his have been for almost 41 years. [facility] in [place], [place]. The couple have 3 children, daughter Sasha and sends Juan Alberto and Alexei. All children are grown and live in the area. Patient served in the [employer] for 2 years prior to being diagnosed with a brain tumor in his right occipital parietal lobe, which resulted in his inability to learn new things. This effectively caused him to be disabled and unable to work. [facility], and is 100% disabled. The couple have been in dialogue with [facility] for the past 2 years since his for stroke, and they have been talking about the care they may receive from hospice services more frequently recently. They were ?waiting to see if this would get better or worse before making that decision.? is aware of extended care facilities that are contracted with the [facility] for respite care, located in [facility]. She was able to get a hold of a [facility] parts counter representative named Josie Acevedo today, and discussed his most recent stroke with this provider. The patient prefers to stay at home if possible, states that he most trusts his tc to make medical decisions for him should he become incapacitated in the future. He looks to his frequently when answering questions, seems very unsure of himself. Because of the patient's profound general decline in clinical status over months, frailty evident by weakness, frequent falls, inability to provide of adequate self care, severe malnutrition (dramatic, unintentional weight loss, fatigue, lethargy) and given the possibility of an underlying, incurable medical illness, the medical team is of the belief that life expectancy is limited to weeks to months, and has requested clarification of this gentleman's specific medical goals. Reason for consultation Attending physician has requested palliative medicine to assist in furthering conversation with patient and family regarding the complex and sensitive medical issues of the perceived benefits/burdens of continued life prolonging treatments, realistic prognosis, perspectives on and dying, priority in clinical care and burden of physical, emotional and spiritual symptoms for patient and family. I have reviewed the medical record, radiographs, diagnostics, attempted to interview the patient (disoriented, no registration) and subsequently interviewed the patient DPOAHC. The following aspects are pertinent, current and remote medical history, social/emotional and family dynamics, current medic ations and effects, ROS, examination findings, prognosis, care planning, goal setting. Meds Home Medications and Allergies Home Medications Medication Instructions Recorded Confirmed Type donepezil 10 mg PO BEDTIME #0 04/30/05/26/20 History lisinopril 20 mg PO BEDTIME #0 11/22/17 05/26/20 History loratadine 10 mg PO BEDTIME 04/10/18 05/26/20 History multivitamin 1 tab PO BEDTIME 04/10/18 05/26/20 History acetaminophen 650 mg PO Q6HR PRN #30 tab 04/16/18 05/26/20 Rx metoprolol tartrate 25 mg DAILY 05/26/20 05/26/20 History Allergies Allergy/AdvReac Type Severity Reaction Status Date / Time No Known Drug Allergies Allergy Verified 05/26/20 18:23 Review of Systems Constitutional Constitutional: Reports as per HPI Exam Vital Signs (past 8 hours): - 05/28/20 14:20 05/28/20 15:00 05/28/20 15:32 Temperature 100.0 F H 98.7 F Pulse Rate 74 78 Respiratory Rate 16 18 Blood Pressure 139/103 H 148/100 H Pulse Oximetry 96 95 95 Oxygen Delivery Method Room Air Oxygen Flow Rate 0 Narrative Exam Narrative: 65-year-old gentleman is visited at bedside today with his for the purposes of advanced care planning. Left-sided hemiplegia is evident. Patient speaks with slurred speech, has difficulty tracking conversation due to limited cognition. He does consent to this palliative medicine dialogue. Looks to his for answers to questions when unable to answer for himself. Const General: cooperative, comfortable and well groomed Orientation: alert, awake and oriented x3 Resp Effort & Inspection: normal respiratory effort and able to speak in complete sentences Psych Appearance: grossly normal Mental Status: other (Has difficulty processing complicated data due to dementia) Speech and Movement: slurred speech Mood: other (Has difficulty processing complicated data due to dementia) Affect: normal affect Attitude: cooperative Thought Process: circumstantial Thought Content: normal Judgment: fair Objective Labs Result Diagrams: 05/29/20 13:00 05/28/20 05:47 Labs: Laboratory Results - last 24 hr 05/28/20 05/28/20 05:47 05:47 WBC 8.2 RBC 4.80 Hgb 14.9 Hct 44.3 MCV 92.2 MCH 31.0 MCHC 33.6 RDW 13.5 Plt Count 282 Neut % (Auto) 52.0 Lymph % (Auto) 37.4 [place] % (Auto) 6.9 Eos % (Auto) 3.1 Baso % (Auto) 0.6 Neut # (Auto) 4300 Lymph # (Auto) 3100 [place] # (Auto) 600 Eos # (Auto) 300 Baso # (Auto) 0 Sodium 140 Potassium 3.9 Chloride 106 Carbon Dioxide 27 BUN 7 L Creatinine 0.77 Estimated GFR > 60.0 BUN/Creatinine Ratio 9.1 Glucose 98 Calcium 9.1 Magnesium 2.1 Assessment & Recommendations A & R narrative: Discussion: Met with the patient and his at bedside. Patient consents to dialogue regarding palliative medicine and advanced care planning. Patient seems to understand that he has had another stroke, and that he may not rebound from this current insult. The couple have been throughout his medical trials, including when he was 1st diagnosed with a brain tumor and underwent ionizing radiation. Patient confirms his desire to avoid resuscitation and is offered t he opportunity to complete a [place] state POLST. Patient places limitations on resuscitation, desires comfort measures only, would like to determine the use or limitation of antibiotics when infection occurs with comfort as a goal, and wishes to only undergo a trial of artificial nutrition and hydration with the goal of his independent ability to eat within a week. He does not wish further surgical interventions and would like to decline dialysis or blood transfusions unless his prognosis is ?very good.? He consents to allow his , who is his surrogate decision maker per [facility] law, to sign this document. The patient himself states his desire to be at home to recover from illness or injury, and wishes to avoid hospitalization in the future, if possible. Long discussion regarding options for treatment including end of life care with a community-based hospice agency. Patient is at this time consent to a hospice evaluation, patient preferring to be discharged home on hospice rather than to a halfway facility for aggressive, restorative care. Updated the medical team regarding the outcome of this palliative medicine consultation. Impression: -CVA -history of CVA with left-sided hemiparesis -dementia -palliative medicine consultation Coding: To remain informed regarding current treatment opportunities, provider reviewed extensive additional documentation of multiple treatment providers/facilities which was utilized to update the management plan. Total time in review of additional medical information is 20 minutes, external to in person evaluation. Time in assessment and management of acute and chronic medical diagnoses, pertinent history to palliative medicine decision making, discussion and management of clinical findings enumerated above as well as fears regarding the transition to a more end of life plan and and dying is 32 minutes, more than half of which is necessary for education and counseling. Advanced Care Planning discussion time is 15 minutes. The patient currently lacks testamentary documents for estate planning, DPOAHC, lacks POLST and statement of wishes. Dialogue addresses patient preferences at the end/near end of life including resuscitation wishes (no CPR, DNAR). [facility] POLST is completed today. Additional care limits discussed above. Time Spent With Patient Time with patient: Greater than 35 minutes
--- NOTE | 2020-05-28 18:07 | P.PN_ITS ---
Subjective Subjective Date Patient Seen: 05/28/20 Interval history: The patient is a 65-year-old male with a history of brain cancer, history of right brain CVA with significant left-sided hemiparesis. He presented to the hospital with weakness and falling. MRI confirmed a left insular infarct. The patient is now a 3 person maximum assist. After discussion with the and the patient palliative care consultation was obtained. The patient was seen by Vanessa Arteaga. Post form was updated. The patient and his have elected to pursue hospice. Hospice referral is in place. The patient remains DNR DNI. He requests comfort although will continue his medications here in the hospital. Exam Vital Signs (past 8 hours): - 05/28/20 14:20 05/28/20 15:00 05/28/20 15:32 Temperature 100.0 F H 98.7 F Pulse Rate 74 78 Respiratory Rate 16 18 Blood Pressure 139/103 H 148/100 H Pulse Oximetry 96 95 95 Oxygen Delivery Method Room Air Oxygen Flow Rate 0 Narrative Exam Narrative: Pleasant gentleman sitting in bed no obvious distress, very hard hearing Lungs: Decreased breath sounds Cardiac exam: Regular rate and rhythm normal S1 S Abdomen: Soft benign, non Extremities: No edema Neuro exam: Unchanged, dense left hemiparesis, Objective Labs Result Diagrams: 05/28/20 05:47 05/28/20 05:47 Labs: Laboratory Results - last 24 hr 05/28/20 05/28/20 05:47 05:47 WBC 8.2 RBC 4.80 Hgb 14.9 Hct 44.3 MCV 92.2 MCH 31.0 MCHC 33.6 RDW 13.5 Plt Count 282 Neut % (Auto) 52.0 Lymph % (Auto) 37.4 [place] % (Auto) 6.9 Eos % (Auto) 3.1 Baso % (Auto) 0.6 Neut # (Auto) 4300 Lymph # (Auto) 3100 [place] # (Auto) 600 Eos # (Auto) 300 Baso # (Auto) 0 Sodium 140 Potassium 3.9 Chloride 106 Carbon Dioxide 27 BUN 7 L Creatinine 0.77 Estimated GFR > 60.0 BUN/Creatinine Ratio 9.1 Glucose 98 Calcium 9.1 Magnesium 2.1 Assessment & Plan Assessment & Plan narrative: 1. Subacute left insular CVA -patient with a history of a right pontine CVA with significant left hemiparesis -patient is significantly more debilitated, unable to sit upright, now requires a 3 person maximum assist -patient is continue with PT and OT. He did not tolerate statin previously due to elevated liver function test -patient and his have elected to pursue hospice at this time, as such will discontinue the statin 2. History of astrocytoma -patient with resulting dementia, continue done as donepezil -hospice referral as above 3. Hypertension -will continue his lisinopril and metoprolol 4. Hyperlipidemia -given the patient's history of elevated liver function tests with status will discontinue -patient will be discharging on hospice therefore statin will be discontinued at this time Plan hospice referral and discharged home tomorrow Quality Stroke Contraindication Not Initiating IV-Tpa: Not indicated Onset of Symptoms Date: 05/26/20 Onset of Symptoms Time: 13:00 Symptom Onset Unknown: No Contraindication Antithromb by Day Two: Not indicated Rehab Services Assessed: Rehabilitation therapy VTE Deep Vein Thrombosis/Pulmonary Embolism Present on Admission: No
[2020-05-28] MEDS: lisinopriL 10 MG TABLET PO (20:10)
[2020-05-28] MEDS: ATORVASTATIN 20 MG TABLET 10 MG PO (20:10)
[2020-05-28] MEDS: DONEPEZIL 5 MG TABLET 10 MG PO (20:11)
[2020-05-29] VITALS (9 sets, daily range): BP systolic 136–176; BP diastolic 82–102; PULSE 81–109; RESP 16–20; TEMP 36.5–36.9; O2SAT 90–96
--- NOTE | 2020-05-29 00:57 | PC.NURSE ---
Addendum entered by Jennifer Byrd R.N. 05/29/20 04:47: 0345 Shortly after administering morphine, the patient experienced the hiccups again and had a small, unmeasured emesis episode. This time the bile was a darker brown. The patient reported feeling a bit better afterwards. Protonix administered shortly after. Addendum entered by Jennifer Byrd R.N. 05/29/20 03:13: 0300 Received call from ICU stating patient's telemetry is showing widening QRS. ICU called down to ED to inform Dr. La Nena Mccullough. Vital signs were checked, BP 151/102 and pulse 104 with RR 18. Pt currently has hiccups (again) and states he feels like he is going to throw up again. RT shows up for ECG. Dr. Mccullough arrives, vitals are repeated: BP 176/99, pulse 106, RR 18. Pt states I have the hiccups and when asked if he is having chest pain, he states, DUH and nods his head yes. Morphine currently being ordered for chest pain. Addendum entered by Jennifer Byrd R.N. 05/29/20 02:25: CORRECTION to [address] [place] the patient having (what sounded like) a coughing fit but he said I have the hiccups, then vomited on his gown. Addendum entered by Jennifer Byrd R.N. 05/29/20 02:16: 0000 Patient has occasional cough, and is able to turn himself to his left side if needed. No aspiration observed. [address] [place] patient having coughing fit and went to check on him. He said I have to throw up, and he vomited on his gown. After handing him an emesis bag, he vomited another 50cc's, brown in color. Zofran administered. After emesis episode seemed to end I asked him if he felt ok and he said, Much better. Patient gown changed, patient repositioned with HOB elevated to 30 degrees. Original Note: 2300 Received safe hand-off report. The patient is alert, oriented to self and city but also has mild-moderate expressive aphasia. He denies pain. Excessive saliva observed at patient's lips. Aspiration precautions in place. Yankar suction placed at bedside for PRN.
[2020-05-29] MEDS: ONDANSETRON 4 MG/2 ML INJ IV (02:02)
[2020-05-29] MEDS: MORPHINE 2 MG/ML INJ IV (03:28)
[2020-05-29] MEDS: PANTOPRAZOLE 40 MG VIAL IV ×3 (03:28→21:27)
[2020-05-29] MEDS: METOPROLOL IR 25 MG TABLET PO (08:58)
[2020-05-29] MEDS: ASPIRIN EC 325 MG TABLET PO (08:58)
[2020-05-29] MEDS: DOCUSATE 100 MG CAPSULE PO (08:59)
[2020-05-29] MEDS: ENOXAPARIN 40 MG/0.4 ML SYRINGE SUBCUT (09:07)
[2020-05-29] MEDS: SODIUM CHLORIDE 0.9% FLUSH 10 ML IV (09:07)
--- NOTE | 2020-05-29 10:26 | PT.IPTN ---
Current Diagnoses Cerebral infarction, unspecified (05/26/20) Physical Therapy Treatment Note M2 PT-IP Current Condition Start: 05/27/20 14:39 Freq: NEEDED Status: Active Protocol: Document 05/27/20 13:45 AB (Rec: 05/27/20 14:56 AB [id number]) Physical Therapy Current Condition Current Condition Evaluation Date 05/27/20 Treatment Diagnosis weakness; CVA Onset Date 05/26/20 Precautions Other Precautions falls M3 PT-IP Subjective Start: 05/27/20 14:39 Freq: NEEDED Status: Active Protocol: Document 05/29/20 10:11 KS (Rec: 05/29/20 10:58 KS [id number]) Subjective Physical Therapy Visit Type Type Treatment Note Visit Start Time 10:11 Visit Stop Time 10:26 Total Visit Minutes 15 Notes present during treatment. Physical Therapy Visit Comments Patient Comments Pt refused to transfer to chair, but agreed to LE strengthening exercises in bed . M4 PT-IP Mobility and Gait Start: 05/27/20 14:39 Freq: NEEDED Status: Active Protocol: Document 05/29/20 10:11 KS (Rec: 05/29/20 10:58 KS [id number]) PT-Transfer Assessment Comments Mobility Comments Pt refused getting out of bed today and was unable to speak clearly, using hand to sign yes and no. Pt completed 1x5 bilateral ankle pumps, quad sets, heel slides, and glute sets. Pt able to complete R sided SLR, but too weak on L to complete. Pt needed encouragement from this SOCIAL SCIENTIST and his to complete exercises. PROM to LUE. Pts confirming speech is worse today, notifed RN. Gait Assessment Comments Gait Comments unable M5 PT-IP Objective Assessments Start: 05/27/20 14:39 Freq: NEEDED Status: Active Protocol: Document 05/27/20 13:45 AB (Rec: 05/27/20 14:56 AB [id number]) Orientation Orientation/Cognition Level of Alertness Alert Orientation Name,Month,Year Language Function Ability Hard of Hearing Safety Awareness Decreased Safety Awareness Memory Description Short Term Impaired Gross Range of Motion Lower Extremity ROM Assessment Within Functional Limits Strength Lower Extremity Strength Assessment Left Impaired Hip 3-/5 Knee 3-/5 Ankle 1/5 Muscle Tone Muscle Tone WNL No Comments Muscle Tone Comments increase extensor tone during standing M6 PT-IP Treatment Start: 05/27/20 14:39 Freq: NEEDED Status: Active Protocol: Document 05/29/20 10:11 KS (Rec: 05/29/20 10:58 KS [id number]) Physical Therapy Treatment Exercises Exercises Ankle Pumps,Gluteal Sets,Quad Sets,Heel Slides,Straight Leg Raises,Elbow Flexion/Extension ,Wrist ROM,Hand ROM Education Education Provided Safety M7 PT-IP Assessment and Plan Start: 05/27/20 14:39 Freq: NEEDED Status: Active Protocol: Document 05/29/20 10:11 KS (Rec: 05/29/20 10:58 KS [id number]) PT Summary Assessment and Plan Potential Rehabilitation Potential Fair Status of Condition at Evaluation Evolving Summary Impairments Pain,ROM,Strength,Balance, Coordination,Sensation,Tone, Cognition,Bed Mobility, Transfers,Gait,Activity Tolerance Assessment Summary Pt refused to get out of bed today, but participated in BLE strengthening exercises including ankle pumps, quad sets, glute sets, heel slides, and SLR. Pt R side much stronger than L. PROm to AYDIN. RN notified of declining speech today. Mechanical lift for transfers. Pt would benefit from skilled therapy. Goals Bed Mobility Goal Moderate Assistance Transfer Goal Maximal Assistance,Front Wheeled Walker Days to Meet Goals 5 Frequency of Treatment Frequency Of Treatment Once a Day Treatment Plan Physical Therapy Treatment Plan Bed Mobility Training,Transfer Training,Gait Training, Therapeutic Exercise,Balance Retraining,Discharge Planning, Hot or Cold Pack,Neuromuscular Re-ed,Coordination Retraining ,Manual Therapy Other Recommendations and Next Treatment progress transfers- 2 assist Focus required for manual transfer, continue to advance strengthening (AROM and AAROM) for affected L side. Recommendations To Nursing Amount of Assist Needed Mechanical Lift Discharge Recommendations PT Discharge Recommendations SNF Rehab Transportation Needs at Discharge Wheelchair/Cabulance
--- NOTE | 2020-05-29 12:29 | CM.DPNOTE ---
DCP Cont Update on DCP- Patient's spouse Yaima wants to take patient home w/hospice. Placed referral to [facility], spoke w/[facility] who is initiating intake, she will begin by contacting spouse for the info visit. faxed referral packet. Updated SHAYE Miller, [facility] Hebert Awaiting CB from Noemy/[facility] to discuss details in coordination of patient's DCP; home w/Hospice. Patient will need BLS transport home. Following closely. JW
--- NOTE | 2020-05-29 12:49 | DI.RAD.S_ITS ---
PROCEDURE: XR CHEST 1V INDICATIONS: ? aspiration, assess for poss. infiltrate TECHNIQUE: One view of the chest was acquired. COMPARISON: [facility], CR, XR CHEST 1V, 05/26/2020, 18:02. FINDINGS: Surgical changes and devices: None. Lungs and pleura: Lungs are clear. No pleural effusions or pneumothorax. Mediastinum: Mediastinal contours appear normal. Heart size is normal. Bones and chest wall: No suspicious bony lesions. Overlying soft tissues appear unremarkable. IMPRESSION: No acute cardiopulmonary findings. Dictated by: Suzie Tate M.D. on 05/29/2020 at 14:42 Approved by: Suzie Tate M.D. on 05/29/2020 at 14:42
[2020-05-29 13:08] LABS: Add Manual Diff / Slide Review NO; Basophils Absolute Auto 0 /uL (0-100); Basophils Percent Auto 0.4 % (0-2); Eosinophils Absolute Auto 100 /uL (0-450); Lymphocytes Absolute Auto 2600 /uL (1100-4500); Lymphocytes Percent Auto 22.9 % (25-40); Mean Corpuscular HGB Conc 33.2 % (30-36); Mean Corpuscular Hemoglobin 30.6 PG (26-34); Monocytes Absolute Auto 900 /uL (0-900); Monocytes Percent Auto 7.8 % (3-14); Neutrophils Absolute Auto 7600 /uL (1500-7000); Neutrophils Percent Auto 67.9 % (50-75); Platelet Count 301 X10^3/uL (150-400); Red Blood Cell Count 4.89 X10^6/uL (4.5-5.9); Red Cell Distribution Width 13.6 % (11.6-14.8); White Blood Cell Count 11.1 X10^3/uL (4.5-11.0)
[2020-05-29 13:25] LABS: Alanine Aminotransferase 38 IU/L (<50); Albumin 4.3 g/dL (3.5-5.0); Albumin Globulin Ratio 1.3 (1.0-2.8); Alkaline Phosphatase 74 U/L (38-126); Aspartate Aminotransferase 33 IU/L (17-59); BUN Creatinine Ratio 15.6 (6-22); Bilirubin Total 0.5 mg/dL (0.2-1.3); Bilirubin Unconjugated 0.4 mg/dL (0.0-1.1); Blood Urea Nitrogen 14 mg/dL (9-20); Calcium 9.3 mg/dL (8.4-10.2); Carbon Dioxide 26 mmol/L (22-32); Chloride 105 mmol/L (98-107); Estimated Glomerular Filt Rate > 60.0 mL/min (>60); Globulin 3.4 g/dL (1.7-4.1); Glucose 129 mg/dL (80-110); HEMOLYSIS < 15 (0-50); Magnesium 2.1 mg/dL (1.6-2.3); Potassium 4.6 mmol/L (3.4-5.1); Sodium 138 mmol/L (137-145); Total Protein 7.7 g/dL (6.3-8.2)
--- NOTE | 2020-05-29 13:37 | ST.IPCSEOM ---
Visit Care Team Role Provider Type GRACIELA Nevarez Other Providers Advanced Personalized Living Manager Specialty: Family Practice Address: [address] [place] [address], [address] Email: [email or web address] Kevin Pathak DO Emergency Provider Physician Referring Provider Specialty: Emergency Medicine Address: [address] [place] [address], [address] Email: [email or web address] GRACIELA Smart Admit Provider Physician Attending Provider Specialty: Internal Medicine Address: [address] [place] [address], [address] Email: [email or web address] Diagnoses Cerebral infarction, unspecified (05/26/20) Past Medical History (Last Reviewed 05/28/20 @ 17:20 by GRACIELA Nevarez) 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 Acosta Reason for Referral change in pt status Setting Assessment Location Acute Care Visit Type Note Type Re-evaluation Patient Information Identification Type Name,ID Card History Per H&P: Phill Demarco is a 65 male nonsmoker with history of HTN, hyperlipidemia, brain cancer treated with radiation in 1976, dementia and prior a right pontine CVA CVA with left sided deficits in 2018 presented with his who had concern about a possible stroke. He went to bed last night and was in his usual state of health and woke up today at about 1300 which is normal for him, and she noted him to be profoundly weak in both of his lower extremities, confused and was slurring his speech. She stated that he had a hard time sitting up and kept falling over either backwards or to his left side. Subjective Observations Nursing reported that the pt's swallowing and speech have become worse. Pt appears to be unable to swallow. His speech, according to his , is unintelligible. This is a clear change in his conditio as he was discharged from yesterday having returned to his baseline. Pt was in bed. His reported that he is exhausted and doesn't want to do anything. She further stated that he just isn't swallowing . She described his as chewing and chewing, but not swallowing or letting liquids fall out of his mouth. Reported by Patient Other Symptoms Difficulty swallowing pills, Difficulty swallowing solids, Drooling Baseline Feeding Method Dependent for feeding Results Pt is currently on a mechanical soft diet (easy to chew) with thin liquids (his baseline) Objective Assessment Mental Status Confused,Lethargic Comment OME not completed secondary to pt lethargy/sleepiness Food and Liquid Trials Oral Phase Comments No PO trials secondary to lethargy/sleepiness Fatigue/Endurance Severe fatigue Findings Swallowing Function Oropharyngeal phase dysphagia Severity of Swallow Impairment Severely impaired Contributing Factors to Swallow Reduced alertness or attention Impairment ,Difficulty following directions,Impaired oral- pharyngeal transport,Impaired velopharyngeal closure/ coordination,Excessive oral residue Based on History of aspiration/ aspiration pneumonia Comment Recommended that diet texture be downgraded to dysphagia mechanical as less mastication is required, the bolus is easier to swallow and the bulk of the bolus may assist in triggering swallow response. Thin liquids recommended. Dementia strategies such as spoon press on tongue while feeding to trigger swallow response. Also crush medications in applesauce to aid in swallow. Impact on Safety and Functioning Risk for inadequate nutrition/ hydration Recommendations Instrumental Assessment No Swallowing Treatment Yes Recommended Solids Dysphagia Mechanical Recommended Liquids Thin Safety Precautions/Swallowing Supervision needed for all Recommendations meals,1 to 1 close supervision ,To be fed only by trained staff/family,Feed only when alert,Remain upright (90 degrees) during all oral intake,Needs verbal cues to use recommended strategies, Upright position at least 30 minutes after meals,Small bites and sips when eating, Slow rate; swallow between bites,Alternate liquids and solids,Sensory enhancement ( flavor, texture, temperature), 1 to 1 feeding assistance, Family assistance/supervision Medication Recommendations Crushed in Carrier Discharge Recommendations Home with Home Health,Home with Hospice Education Patient/Caregiver Education Family/caregivers expressed understanding of evaluation, Family/caregivers expressed agreement with goals & treatment plans,Patient expressed understanding of safety precautions,Patient expressed understanding of feeding recommendations Goals Short-term Goals 1. The pt will participate in further evaluation of swallow safety, as well as speech and language skills, to promote swallow safety and highest level of communication and to guide Long-term Goals 1. The pt will tolerate least restrictive diet to meet his nutrition and hydration needs. 2. The pt will demonstrate speech and language skills sufficient to express his wants and needs and participate in medical decisions. [ End ]
--- NOTE | 2020-05-29 15:02 | PC.NURSE ---
Addendum entered by Emilia Adorno R.N. 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
--- NOTE | 2020-05-29 15:53 | P.PN_ITS ---
Subjective Subjective Date Patient Seen: 05/29/20 Time Patient Seen: 15:54 Interval history: The patient is a 65-year-old male with a history of brain cancer, history of right brain CVA with significant left-sided hemiparesis. He presented to the hospital with weakness and falling. MRI confirmed a left insular infarct. The patient is now a 3 person maximum assist. After discussion with the and the patient palliative care consultation was obtained. The patient was seen by Vanessa Arteaga. Polst form was updated. The patient and his have elected to pursue hospice. Hospice referral is in place. The patient remains DNR DNI. The patient has continued to deteriorate slightly today, and he was noted to have slightly more difficulty tolerating vicki ls and has become more and more lethargic. Patient had his diet downgraded by speech therapy. There is concern that he may have aspirated although his chest x-ray is negative. Did discuss with the patient and his and they do want some fluids and antibiotics if necessary for comfort at this time pending. Exam Vital Signs (past 8 hours): - 05/29/20 08:25 05/29/20 15:18 Temperature 98.1 F 97.7 F Pulse Rate 107 H 82 Respiratory Rate 16 18 Blood Pressure 140/91 H 140/92 H Pulse Oximetry 93 93 Oxygen Delivery Method Room Air Oxygen Flow Rate 0 Narrative Exam Narrative: GENERAL APPEARANCE: Well developed, well nourished, in no acute distress. SKIN: Inspection of the skin reveals no rashes, ulcerations or petechiae. HEENT: Facial asymmetry due to prior brain surgery, extraocular muscles are intact, oropharynx is clear and mucous membranes are moist, neck is supple without adenopathy NECK: Supple and symmetric. There was no thyroid enlargement, and no tenderness, or masses were felt. CHEST: Normal AP diameter and normal contour without any kyphoscoliosis. LUNGS: Auscultation of the lungs revealed no wheezes, rhonchi, or rales. CARDIOVASCULAR: There was a regular rate and rhythm without any murmurs, gallops, rubs. Peripheral pulses were 2+ and symmetric. ABDOMEN: Soft and nontender with normal bowel sounds. No ascites was noted. MUSCULOSKELETAL: There was no tenderness or effusions noted. Muscle strength and tone were normal. EXTREMITIES: No cyanosis, clubbing or edema. NEUROLOGIC: Alert. Left hemiparesis and dysarthria. . Objective Labs Result Diagrams: 05/29/20 13:00 05/29/20 13:00 Labs: Laboratory Results - last 24 hr 05/29/20 05/29/20 13:00 13:00 WBC 11.1 H RBC 4.89 Hgb 15.0 Hct 45.0 MCV 92.0 MCH 30.6 MCHC 33.2 RDW 13.6 Plt Count 301 Neut % (Auto) 67.9 Lymph % (Auto) 22.9 L Bartholomew % (Auto) 7.8 Eos % (Auto) 1.0 L Baso % (Auto) 0.4 Neut # (Auto) 7600 H Lymph # (Auto) 2600 Bartholomew # (Auto) 900 Eos # (Auto) 100 Baso # (Auto) 0 Sodium 138 Potassium 4.6 Chloride 105 Carbon Dioxide 26 BUN 14 Creatinine 0.90 Estimated GFR > 60.0 BUN/Creatinine Ratio 15.6 Glucose 129 H Calcium 9.3 Magnesium 2.1 Total Bilirubin 0.5 Conjugated Bilirubin 0.0 Unconjugated Bilirubin 0.4 AST 33 ALT 38 Alkaline Phosphatase 74 Total Protein 7.7 Albumin 4.3 Globulin 3.4 Albumin/Globulin Ratio 1.3 Assessment & Plan Assessment & Plan narrative: The patient is a 65-year-old male with a history of brain cancer, history of right brain CVA with significant left-sided hemipare sis. He presented to the hospital with weakness and falling. MRI confirmed a left insular infarct. 1. Subacute left insular CVA -patient with a history of a right pontine CVA with significant left hemiparesis previously. -patient is significantly more debilitated, unable to sit upright, now req uires a 3 person maximum assist. Also with worsening dysphagia, lethargy, and some dysarthria now. -patient is continue with PT and OT. He did not tolerate statin previously due to elevated liver function test -patient and his have elected to pursue hospice after discussion with palliative care. Primary goal of comfort but okay with some lab draws, antibiotics if necessary, and IV fluids. -patient today with worsened lethargy which may be due to sequalae of subacute CVA or possible underlying aspiration given worsened swallow evaluation today. Continue Speech therapy and diet. Will start some IV hydration today to see if improvement. 2. History of astrocytoma -patient with resulting dementia, continue done as donepezil -hospice referral as above 3. Hypertension -will continue his lisinopril and metoprolol 4. Hyperlipidemia -given the patient's history of elevated liver function tests with status will discontinue -patient will be discharging on hospice therefore statin will be discontinued at this time Plan is for discharge home with hospice, will continue to monitor given progressive lethargy and worsening dysphagia which may be sequalae of recent new CVA. Will continue IV fluids at this time to see if improvement in lethargy. Anticipate discharge home in the next 1-2 days if patient stabilizes or improves slightly. Quality Stroke Contraindication Not Initiating IV-Tpa: Not indicated Onset of Symptoms Date: 05/26/20 Onset of Symptoms Time: 13:00 Symptom Onset Unknown: No Contraindication Antithromb by Day Two: Not indicated Rehab Services Assessed: Rehabilitation therapy VTE Deep Vein Thrombosis/Pulmonary Embolism Present on Admission: No
[2020-05-29] MEDS: SODIUM CHLORIDE 0.9% 1,000 ML 100 ML IV (18:20)
[2020-05-30] VITALS (9 sets, daily range): BP systolic 124–146; BP diastolic 75–94; PULSE 69–82; RESP 16–21; TEMP 36.3–37.1; O2SAT 92–95
[2020-05-30] MEDS: SODIUM CHLORIDE 0.9% 1,000 ML 100 ML IV (04:05)
[2020-05-30] MEDS: ENOXAPARIN 40 MG/0.4 ML SYRINGE SUBCUT (09:04)
[2020-05-30] MEDS: ASPIRIN EC 325 MG TABLET PO (09:04)
[2020-05-30] MEDS: DOCUSATE 100 MG CAPSULE PO ×2 (09:05→20:59)
[2020-05-30] MEDS: METOPROLOL IR 25 MG TABLET PO (09:05)
[2020-05-30] MEDS: PANTOPRAZOLE 40 MG VIAL IV (09:05)
--- NOTE | 2020-05-30 11:09 | P.PN_ITS ---
Subjective Subjective Date Patient Seen: 05/30/20 Time Patient Seen: 13:26 Interval history: The patient is a 65-year-old male with a history of brain cancer, history of right brain CVA with significant left-sided hemiparesis. He presented to the hospital with weakness and falling. MRI confirmed a left insular infarct. The patient is now a 3 person maximum assist. After discussion with the and the patient palliative care consultation was obtained. The patient was seen by Vanessa Arteaga. The patient and his have elected to pursue hospice. Hospice referral is in place. The patient remains DNR DNI. Hospice will open on Tuesday per care management discussions today. The patient has continued to deteriorate slightly today, and he was noted to garcia ve slightly more difficulty tolerating meals and has become more and more lethargic. He has only been tolerating liquids and his states that solid foods get stuck. Currently working for possible discharge home tomorrow. Exam Vital Signs (past 8 hours): - 05/30/20 05:00 05/30/20 08:25 Temperature 97.6 F 97.4 F L Pulse Rate 73 82 Respiratory Rate 18 16 Blood Pressure 138/89 127/79 Pulse Oximetry 95 94 Oxygen Delivery Method Room Air Oxygen Flow Rate 0 Narrative Exam Narrative: GENERAL APPEARANCE: Well developed, well nourished, in no acute distress. SKIN: Inspection of the skin reveals no rashes, ulcerations or petechiae. HEENT: Facial/head asymmetry due to prior brain surgery, extraocular muscles are intact, oropharynx is clear and mucous membranes are moist, neck is supple without adenopathy NECK: Supple and symmetric. There was no thyroid enlargement, and no tenderness, or masses were felt. CHEST: Normal AP diameter and normal contour without any kyphoscoliosis. LUNGS: Auscultation of the lungs revealed no wheezes, rhonchi, or rales. CARDIOVASCULAR: There was a regular rate and rhythm without any murmurs, gallops, rubs. Peripheral pulses were 2+ and symmetric. ABDOMEN: Soft and nontender with normal bowel sounds. No ascites was noted. MUSCULOSKELETAL: There was no tenderness or effusions noted. Muscle strength and tone were normal. EXTREMITIES: No cyanosis, clubbing or edema. NEUROLOGIC: Alert. Left hemiparesis and dysarthria. Objective Labs Result Diagrams: 05/29/20 13:00 05/29/20 13:00 Labs: Laboratory Results - last 24 hr 05/29/20 05/29/20 13:00 13:00 WBC 11.1 H RBC 4.89 Hgb 15.0 Hct 45.0 MCV 92.0 MCH 30.6 MCHC 33.2 RDW 13.6 Plt Count 301 Neut % (Auto) 67.9 Lymph % (Auto) 22.9 L [place] % (Auto) 7.8 Eos % (Auto) 1.0 L Baso % (Auto) 0.4 Neut # (Auto) 7600 H Lymph # (Auto) 2600 [place] # (Auto) 900 Eos # (Auto) 100 Baso # (Auto) 0 Sodium 138 Potassium 4.6 Chloride 105 Carbon Dioxide 26 BUN 14 Creatinine 0.90 Estimated GFR > 60.0 BUN/Creatinine Ratio 15.6 Glucose 129 H Calcium 9.3 Magnesium 2.1 Total Bilirubin 0.5 Conjugated Bilirubin 0.0 Unconjugated Bilirubin 0.4 AST 33 ALT 38 Alkaline Phosphatase 74 Total Protein 7.7 Albumin 4.3 Globulin 3.4 Albumin/Globulin Ratio 1.3 Assessment & Plan Assessment & Plan narrative: The patient is a 65-year-old male with a history of brain cancer, history of right brain CVA with significant left-sided hemiparesis. He presented to the hospital with weakness and falling. MRI confirmed a left insular infarct. 1. Subacute left insular CVA -patient with a history of a right pontine CVA with significant left hemiparesis previously. -patient is significantly more debilitated, unable to sit upright, now requires a 3 person maximum assist. Also with worsening dysphagia, lethargy, and some dysarthria now. -patient is continue with PT and OT. He did not tolerate statin previously due to elevated liver function test -patient and his have elected to pursue hospice after discussion with palliative care. Primary goal of comfort but okay with some lab draws, antibiotics if necessary, and IV fluids. -patient with worsened lethargy which may be due to sequalae of subacute CVA or possible underlying aspiration given worsened swallow evaluation. Continue Speech therapy and diet. Given some IV hydration yesterday, but lost IV yesterday and he is tolerating primarily liquids. Will continue liquids without IV for comfort for now. Anticipate discharge home tomorrow. 2. History of astrocytoma -patient with resulting dementia, continue done as donepezil -hospice referral as above 3. Hypertension -will continue his lisinopril and metoprolol 4. Hyperlipidemia -given the patient's history of elevated liver function tests with status will discontinue -patient will be discharging on hospice therefore statin will be discontinued at this time Plan is for discharge home with hospice, will continue to monitor given progressive lethargy and worsening dysphagia which may be sequalae of recent new CVA. Anticipate discharge home tomorrow. Code: DNR /DNI Quality Stroke Contraindication Not Initiating IV-Tpa: Not indicated Onset of Symptoms Date: 05/26/20 Onset of Symptoms Time: 13:00 Symptom Onset Unknown: No Contraindication Antithromb by Day Two: Not indicated Rehab Services Assessed: Rehabilitation therapy VTE Deep Vein Thrombosis/Pulmonary Embolism Present on Admission: No
--- NOTE | 2020-05-30 12:51 | ST.IPDYTX ---
Visit Care Team Role Provider Type GRACIELA Nevarez Other Providers Advanced Customer Relations Consultant Specialty: Family Practice Address: [address] [place] [address], [address] Email: [email or web address] Kevin Pathak DO Emergency Provider Physician Referring Provider Specialty: Emergency Medicine Address: [address] [place] [address], [address] Email: [email or web address] GRACIELA Smart Admit Provider Physician Attending Provider Specialty: Internal Medicine Address: [address] [place] [address], [address] Email: [email or web address] CHASER Dysphagia Treatment COPY CHASER Dysphagia Treatment Start: 05/28/20 10:51 Freq: Status: Active Protocol: Document 05/30/20 12:42 LNK (Rec: 05/30/20 12:51 LNK [id number]) Dysphagia Treatment Session Time Visit Start Time 11:45 Visit Stop Time 12:00 Total Visit Minutes 15 Setting Assessment Location Acute Care Visit Type Note Type Treatment Note Patient Information Identification Type Name,Other Subjective Observations Pt was sleeping in his bed. His was at his bedside. Treatment Treatment Activities Spent the session discussing pt's swallowing. She reported that the pt was able to swallow spoonsful of Glucerna protein shake. He was not, however, able to swallow any of the solid (dysphagia mechanical). He would let the bolus sit in his mouth. Once in a while he would swallow, she noted. He did swish and swallow a couple of times for her. When asked about using a tongue press, Mrs. Demarco stated that it was not effective. This COPY CHASER suggested to try moving the tongue press to the middle of his tongue. This may be more effective. Mrs. Demarco confirmed that she and her have decided to use Hospice services. She also stated that she may just provide the Glucerna shakes for her after they return home. At this point ST will discharge pt. Treatment Plan Placement Recommendation after Discharge Home with Home Health Appropriate for Continued Therapy No Therapy Recommendations Discharge
--- NOTE | 2020-05-30 14:45 | PT-IP ANOTE ---
Spoke w/ pt and pts @14:45 regarding possible d/c from therapy. Pts states she does not think pt will benefit any further from therapy at this time d/t pt returning home w/ hospice tomorrow, pt nods in agreement.
--- NOTE | 2020-05-30 15:01 | CM.DPNOTE ---
DCP Cont Spoke w/TARIQ Gonzalez this morning. They can start care Tuesday AM between [id number]. Spouse Yaima will be contacted to get consent forms signed and discuss DME delivery, expected Tuesday. Spoke then w/spouse Yaima to update. Yaima explains she needs to move patient's hospital bed from their bedroom to their living room, w/assist from their son. Yaima further explains BLS/stretcher will be a tight fit into their small apt but still seems the safest transport home. Yaima agreeable to having patient home w/o [facility] f/u until Tuesday; although very appreciative of having tonight to arrange their apt for patient's return home tomorrow, Tuesday05.31.20. Dr Acosta updated, agreeable to plan. Will wait until Tuesday to schedule BLS transport. LM for Lisa at [facility] w/plan, she will need DC Summary faxed upon DC. Also LM for SHAYE Miller w/plan. P: DC expected Tuesday, home w/spouse and son to assist, Hospice [facility] f/u Tuesday and BLS transport for safe transport home JW
--- NOTE | 2020-05-30 15:17 | PC.NURSE ---
A&O X2, calm and cooperative; NO IV access per MD orders after 2 RNs attempted IV starts; pt's , Yaima is in the room most of the day, feeding pt broth, protein shake, and Sorbet by spoon; this RN provided daily weight documentation to pt's , as requested; skin to buttocks healthy and intact
--- NOTE | 2020-05-30 16:19 | PT.IPTN ---
Current Diagnoses Cerebral infarction, unspecified (05/26/20) Physical Therapy Treatment Note M2 PT-IP Current Condition Start: 05/27/20 14:39 Freq: NEEDED Status: Active Protocol: Document 05/27/20 13:45 AB (Rec: 05/27/20 14:56 AB [id number]) Physical Therapy Current Condition Current Condition Evaluation Date 05/27/20 Treatment Diagnosis weakness; CVA Onset Date 05/26/20 Precautions Other Precautions falls M7 PT-IP Assessment and Plan Start: 05/27/20 14:39 Freq: NEEDED Status: Active Protocol: Document 05/30/20 16:17 HH (Rec: 05/30/20 16:19 HH [id number]) PT Summary Assessment and Plan Summary Assessment Summary ENGRAVER RUBBER Cande spoke to pt's this PM regarding DC plan. Pt is going to hospice and his doesnt think therapy will help at this point. Request to d/c from therapy. Frequency of Treatment Frequency Of Treatment Discharge Discharge Recommendations PT Discharge Recommendations Home with 28/02 Assist Other Discharge Recommendations hospice
[2020-05-30] MEDS: ATORVASTATIN 20 MG TABLET 10 MG PO (20:59)
[2020-05-30] MEDS: lisinopriL 10 MG TABLET PO (21:00)
--- NOTE | 2020-05-30 22:33 | PC.NURSE ---
Pt denies pain and nausea and was able to take po meds with applesauce. He is able to sleep, spouse says he only is drinking thin liquids by the spoonful. Generally he can make his needs known, but he is veyr soft spoken and slurs his words. Going to hospice on Tuesday.
[2020-05-31] VITALS: BP 150/93; PULSE 67; RESP 16; TEMP 36.4; O2SAT 92
[2020-05-31 04:30] VITALS: BP 135/69; PULSE 80; RESP 16; TEMP 36.3; O2SAT 92
[2020-05-31 08:00] VITALS: BP 150/89; PULSE 78; RESP 18; TEMP 36.4; O2SAT 93
[2020-05-31] MEDS: ASPIRIN EC 325 MG TABLET PO (08:36)
[2020-05-31] MEDS: DOCUSATE 100 MG CAPSULE PO (08:36)
[2020-05-31] MEDS: ENOXAPARIN 40 MG/0.4 ML SYRINGE SUBCUT (08:36)
[2020-05-31] MEDS: METOPROLOL IR 25 MG TABLET PO (08:36)
[2020-05-31 10:30] VITALS: BP 141/88; PULSE 75; RESP 18; TEMP 36.5; O2SAT 94
[2020-05-31 11:26] VITALS: O2SAT 95
--- NOTE | 2020-05-31 11:39 | PC.NURSE ---
A&O X1, calm and cooperative; dysarthria; 1:1 feeding with dysphagia diet, crushed pills in carrier; suction for saliva X1; ls diminished; RA
--- NOTE | 2020-05-31 12:19 | P.DS_ITS ---
History of Present Illness History of Present Illness Date Patient Seen: 05/31/20 Time Patient Seen: 12:19 Chief complaint: Slurred speech, weakness Narrative: As per GRACIELA Smart: Phill Demarco is a 65 male nonsmoker with history of HTN, hyperlipidemia, brain cancer treated with radiation in 1976, dementia and prior left sided CVA with right sided deficits in 2018 presents with his whom has concern about a possible stroke. He went to bed last night and was in his usual state of health and woke up today at about 1300 which is normal for him, and she noted him to be profoundly weak in both of his lower extremities, confused and was slurring his speech. She stated that he had a hard time sitting up and kept falling over e ither backwards or to his left side. He does not take any blood thinners, has had no injury and was at baseline when he went to bed. He denies runny nose, sore throat or cough. He has had no chest pain or shortness of breath. He denies any fever chills. He denies nausea, vomiting or diarrhea. He denies any change in medications or diet. In 2018, he was admitted for what was eventually diagnosed as a right pontine CVA and has significant left sided deficits. He was discharged to rehab during that admission. At that time his echo indicated a normal EF of 60-65% with no abnormalities. He is afebrile, blood pressure 159/91, heart rate 79, respiratory rate 14, oxygen saturation of 93% on room air, he weighs 90.7 kg with a BMI of 29.5. CBC is essentially within normal limits, BMP is largely within normal limits with exception of a mildly elevated glucose of 114, lactate is negative, liver enzymes are within normal limits and he isn't normal ammonia, troponin was negative does have a mildly elevated of protein at 8.5, TSH is 1.87, UA is negative for a UTI, and on his urine drug screen was negative. COVID-19 PCR is negative. Discharge Providers Provider Date of admission: 05/26/20 21:49 Discharge Date: 05/31/20 Consults: 05/26/20 21:57 Consult to Discharge Planning Routine Comment: Consult to Occupational Therapy Evaluate & Treat Comment: Physician Instructions: Evaluate and treat Consult to Physical Therapy Evaluate & Treat Comment: Had a left sided CVA in 2018 w/residual deficits Physician Instructions: Evaluate and Treat Consult to Speech Therapy Evaluate & Treat Comment: Physician Instructions: Evaluate and treat 05/26/20 23:18 Consult to Dietitian, Adult Routine Comment: Reason For Exam: weight loss, decreased appetite per 05/28/20 12:37 Consult to Palliative Care Routine Comment: Consulting Provider: Vanessa Arteaga 05/28/20 17:04 Consult to Hospice Referral Routine Comment: 05/29/20 11:03 Consult to Speech Therapy Evaluate & Treat Comment: worsened swallow after speech eval Physician Instructions: Evaluate and treat Discharge provider: Delmer Acosta DO Summary Hospital Course Discharge Diagnosis: Please see hospital course by problem list noted below. Hospital Course: The patient is a 65-year-old male with a history of brain ca ncer, history of right brain CVA with significant left-sided hemiparesis. He presented to the hospital with weakness and falling. MRI confirmed a left insular infarct and after palliative care discussion patient decided to pursue hospice. Family made arrangements at home and once ready he was discharged home with hospice to open likely on Tuesday, 06/02. 1. Subacute left insular CVA, present on admission. -patient with a history of a right pontine CVA with significant left hemiparesis previously. -patient is significantly more debilitated, unable to sit upright, now requires a 3 person maximum assist. Also with worsening dysphagia, lethargy, dysarthria, and worsened swallow. -He did not tolerate statin previously due to elevated liver function test and will not discharge on statin due to this as well as discharge on hospice. -patient and his elected to pursue hospice after discussion with palliative care. Primary goal of comfort but okay with some lab draws, antibiotics if necessary, and IV fluids with primary goal of comfort. -patient with worsened lethargy which was likely due to sequalae of subacute CVA or possible underlying aspiration given worsened swallow evaluation. Continue Speech therapy and diet. He was given some IV hydration, but lost IV and he was tolerating primarily liquids. 2. History of astrocytoma -patient with resulting dementia, continue done as donepezil -hospice referral as above 3. Hypertension -will continue his lisinopril and metoprolol on discharge. 4. Hyperlipidemia -given the patient's history of elevated liver function tests with status will discontinue stat -patient will be discharging on hospice therefore statin will be discontinued at this time Time Spent with Patient Time spent: Less than 30 minutes Exam Vital Signs (past 8 hours): - 05/31/20 04:30 05/31/20 08:00 05/31/20 10:30 Temperature 97.4 F L 97.6 F 97.7 F Pulse Rate 80 78 75 Respiratory Rate 16 18 18 Blood Pressure 135/69 150/89 H 141/88 H Pulse Oximetry 92 93 94 05/31/20 11:26 Temperature Pulse Rate Respiratory Rate Blood Pressure Pulse Oximetry 95 Oxygen Delivery Method Room Air Oxygen Flow Rate 0 Narrative Exam Narrative: GENERAL APPEARANCE: Well developed, well nourished, in no acute distress. SKIN: Inspection of the skin reveals no rashes, ulcerations or petechiae. HEENT: Facial/head asymmetry due to prior brain surgery, extraocular muscles are intact, oropharynx is clear and mucous membranes are moist, neck is supple without adenopathy NECK: Supple and symmetric. There was no thyroid enlargement, and no tenderness, or masses were felt. CHEST: Normal AP diameter and normal contour without any kyphoscoliosis. LUNGS: Auscultation of the lungs revealed no wheezes, rhonchi, or rales. CARDIOVASCULAR: There was a regular rate and rhythm without any murmurs, gallops, rubs. Peripheral pulses were 2+ and symmetric. ABDOMEN: Soft and nontender with normal bowel sounds. No ascites was noted. MUSCULOSKELETAL: There was no tenderness or effusions noted. Muscle strength and tone were normal. EXTREMITIES: No cyanosis, clubbing or edema. NEUROLOGIC: Alert. Left hemiparesis and dysarthria. Objective Labs Result Diagrams: 05/29/20 13:00 05/29/20 13:00 Discharge Plan Discharge Plan Patient Disposition: Hospice - Home Provider Discharge Comment: You were admitted to the hospital with a stroke. You are going home on hospice. Meals limited to liquids due to trouble swallowing after the stroke. No medication changes are necessary. If you'd like to stop taking your blood pressure medications you may. Discharge orders & Medications Prescriptions: Continued donepezil 10 MG tablet 10 mg PO BEDTIME Qty: 0 RF: 0 lisinopril 10 MG tablet 20 mg PO BEDTIME Qty: 0 RF: 0 loratadine 10 mg Tablet 10 mg PO BEDTIME RF: 0 multivitamin Tablet,Chewable 1 tab PO BEDTIME RF: 0 acetaminophen 325 mg Tablet 650 mg PO Q6HR PRN (Reason: As Needed For Fever/Mild Pain) Qty: 30 RF: 0 metoprolol tartrate 25 mg tablet 25 mg DAILY RF: 0 Diet/Activity/Treatments Diet: Diet as Tolerated Activity: As tolerated Visit Report/Discharge Packet Visit Report Forms: Patient Portal/API, Stroke Signs & Symptoms Discharges patient from system. Discharge Date/Time: 05/31/20 14:37 Quality Stroke Contraindication Not Initiating IV-Tpa: Not indicated Onset of Symptoms Date: 05/26/20 Onset of Symptoms Time: 13:00 Symptom Onset Unknown: No Contraindication Antithromb by Day Two: Not indicated Rehab Services Assessed: Rehabilitation therapy VTE Deep Vein Thrombosis/Pulmonary Embolism Present on Admission: No
--- NOTE | 2020-05-31 12:37 | CM.DPC ---
DCP continued: EMR reviewed: patient is being D/C home today. BLS transport set up with [facility] for 2:30pm picking tech. transport form signed and placed with the patients nurse for review. Patient notified, Dr Archer notified of picking tech time and patients nurse updated. No other D/c planning needs are noted at this time Cm will follow patient until BLS transport to assist with any new D/C planning needs that may arise. Jackelin English RN
== END 2020-05-31 14:37 | disposition hospice, home (50) | DRG 65 ==
LOC: ED 21:01 → ICU 05-27 02:06 → AC 05-27 16:25 → ICU 05-28 14:52
PROVIDERS: Internal Medicine; Admitting Provider Nurse Practitioner Family; Emergency Provider Emergency Medicine; Referring Provider Emergency Medicine; Visit Provider Nurse Practitioner Family
DX: I63.9 Cerebral infarction, unspecified (principal); I69.352 Hemiplegia and hemiparesis following cerebral infarction affecting left dominant side; R47.81 Slurred speech; R41.0 Disorientation, unspecified; F03.90 Unspecified dementia, unspecified severity, without behavioral disturbance, psychotic disturbance, mood disturbance, and anxiety; R13.10 Dysphagia, unspecified; R53.83 Other fatigue; I10 Essential (primary) hypertension; E78.5 Hyperlipidemia, unspecified; Z85.841 Personal history of malignant neoplasm of brain; Z11.59 Encounter for screening for other viral diseases; R29.713 NIHSS score 13
CPT/HCPCS: 36415; 70450; 70551; 71045; 80048; 80053; 80061; 80076; 80305; 80320; 80329; 81001; 82140; 82550; 82962; 83036; 83605; 83735; 83880; 84145; 84146; 84443; 84484; 85025; 85610; 85730; 87040; 87635; 87797; 92526; 92610; 93005; 93010; 93306; 96361; 96365; 97110; 97162; 97167; 97530; 97535; 99285; C9113; G0480; J1650; J2270; J2405